=== PATIENT | male | born 1970 | race Caucasian/White ===

== ENCOUNTER → 2021-08-29 | Outpatient (CLI) | payer OTHER, SELFPAY ==
[2021-08-29 12:32] LABS: Absolute Lymphocyte Count 1.43 X10^3/uL (0.83-4.51); Absolute Neutrophil Count 3.6 X10^3/uL (2.0-7.7); Basophil# 0.04 X10^3/uL; Basophil% 0.7 % (0-1); Eosinophil# 0.28 X10^3/uL; Eosinophils% 4.7 % (0-5); Hematocrit 47.9 % (40-54); Lymphocyte # 1.43 X10^3/ul (0.83-4.51); Lymphocyte % 24.1 % (19-41); Mean Corp Hgb Conc 33.4 g/dL (32-36); Mean Corpuscular Hgb 29.9 pg (27.0-32.0); Mean Corpuscular Volume 89.4 fL (80-94); Mean Platelet Vol. 11.2 fl (6.2-12.0); Monocyte# 0.55 X10^3/uL; Monocyte% 9.3 % (0-10); NRBC Flagged by Analyzer 0 % (0-5); Neutrophil # 3.62 X10^3/uL (2.7-7.7); Neutrophil % 60.9 % (47-70); Platelet Count 206 K/mm3 (150-450); RBC Distribution Width CV 12.4 % (11.6-14.6); RBC Distribution Width SD 40.2 fl (35.1-43.9); Red Blood Count 5.36 M/mm3 (4.6-6.2); White Blood Count 5.9 K/mm3 (4.4-11.0)
[2021-08-29 12:40] LABS: Vitamin D,25 Hydroxy 25.1 ng/mL
[2021-08-29 12:43] LABS: Hemoglobin A1c 5.3 % (3.8-5.6)
[2021-08-29 12:53] LABS: ALB/GLOB Ratio 1.2 RATIO (0.9-2.4); AST(SGOT) 18 U/L (15-37); Alanine Aminotransfer ALT/SGPT 37 U/L (16-61); Alkaline Phosphatase 76 U/L (45-117); Anion Gap 5 (5-15); BUN 18 mg/dL (7-18); BUN/Creat Ratio 17.1 RATIO (10-20); Chloride 108 mmol/L (98-107); Cholesterol 132 mg/dL (200); Creatinine, Serum 1.05 mg/dL (0.70-1.30); EST Glomerular Filtration Rate 79 mL/min (>60); Est Glom Filt Rate - Afr Amer 96 mL/min (>60); Free T3 3.3 pg/mL (2.18-3.98); Globulin 3.2 g/dL (2.2-4.2); Glucose 100 mg/dL (74-106); High Density Lipoprotein 44 mg/dL; PSA,Total - Annual Screen 0.49 ng/mL (0.00-4.00); Potassium 4.6 mmol/L (3.5-5.1); Protein, Total 7.2 g/dL (6.4-8.2); Sodium Level 141 mmol/L (136-145); T4 Free Direct 0.98 ng/dL (0.76-1.46); Thyroid Stim Hormone (TSH) 0.51 uIU/mL (0.358-3.74); Triglycerides 64 mg/dL; Very Low Density Lipoprotein 13 mg/dL (5-40)
== END | disposition home or self-care (01) ==
LOC: BIMLAB 08:53
PROVIDERS: PCP Internal Medicine; Referring Provider Internal Medicine; Visit Provider Internal Medicine
DX: N50.3 Cyst of epididymis (principal); E55.9 Vitamin D deficiency, unspecified; Z13.1 Encounter for screening for diabetes mellitus; Z12.5 Encounter for screening for malignant neoplasm of prostate
CPT/HCPCS: 36415; 80053; 80061; 82306; 83036; 84153; 84439; 84443; 84481; 85025; G0103

== ENCOUNTER → 2021-09-01 | Outpatient (CLI) | payer OTHER, SELFPAY ==
--- NOTE | 2021-09-01 15:21 | US_ITS ---
STUDY: SCROTUM ULTRASOUND REASON FOR EXAM: Male, 50 years old. scrotal mass TECHNIQUE: Ultrasound evaluation of the scrotum was performed with color Doppler and static jasso-scale imaging. COMPARISON: None. FINDINGS: RIGHT TESTICLE INTRATESTICULAR: There is a normal size of the right testicle. The right testicle measures 5 x 2.8 x 3.0 cm. There is a homogenous echotexture. There is normal arterial and normal venous vascularity. There is no demonstrated right testicular mass or cyst. EXTRATESTICULAR: The epididymis is normal in size. The epididymis head measures 0.8 cm. There is normal vascularity of the epididymis. There is no demonstrated epididymal cystic structure. There is a moderate size hydrocele. There is no demonstrated varicocele. There is no demonstrated extratesticular mass or cyst. LEFT TESTICLE INTRATESTICULAR: There is a normal size of the left testicle. The left testicle measures 4.6 x 3.2 x 2.9 cm. There is a homogenous echotexture. There is normal arterial and normal venous vascularity. There is no demonstrated left testicular mass or cyst. EXTRATESTICULAR: The epididymis is enlarged. The epididymis head measures 2.4 cm. There is normal vascularity of the epididymis. Multiple simple appearing cysts. Largest of which measures 2.2 x 2.9 x 2.4 cm. There is a small hydrocele. There are prominent extratesticular veins consistent with a varicocele. There is no demonstrated extratesticular mass or cyst. US/Testicular with Arterial Flow IMPRESSION: No evidence of torsion bilaterally. Multiple large simple appearing left epididymal head cysts. Bilateral hydrocele; right greater than left. Left varicocele Electronically Signed: Elias Jiménez DO at 4:49 EDT ,
== END | disposition home or self-care (01) ==
LOC: US 15:19
PROVIDERS: PCP Internal Medicine; Visit Provider Internal Medicine
DX: N50.3 Cyst of epididymis (principal)
CPT/HCPCS: 76870; 93976

== ENCOUNTER → 2022-05-25 | Outpatient (CLI) | payer OTHER, SELFPAY ==
[2022-05-25 15:34] LABS: Absolute Lymphocyte Count 1.79 X10^3/uL (0.83-4.51); Absolute Neutrophil Count 4.2 X10^3/uL (2.0-7.7); Basophil# 0.07 X10^3/uL; Eosinophil# 0.33 X10^3/uL; Eosinophils% 4.7 % (0-5); Hematocrit 45.4 % (40-54); Hemoglobin 15.8 g/dL (13.0-16.5); Lymphocyte # 1.79 X10^3/ul (0.83-4.51); Lymphocyte % 25.7 % (19-41); Mean Corp Hgb Conc 34.8 g/dL (32-36); Mean Corpuscular Hgb 30.3 pg (27.0-32.0); Mean Corpuscular Volume 87.1 fL (80-94); Monocyte% 8.6 % (0-10); NRBC Flagged by Analyzer 0 % (0-5); Neutrophil # 4.16 X10^3/uL (2.7-7.7); Neutrophil % 59.7 % (47-70); Platelet Count 207 K/mm3 (150-450); RBC Distribution Width SD 38.5 fl (35.1-43.9); Red Blood Count 5.21 M/mm3 (4.6-6.2)
[2022-05-25 15:57] LABS: Anion Gap 9 (5-15); BUN 14 mg/dL (7-18); BUN/Creat Ratio 14.1 RATIO (10-20); Calcium,Total 9.1 mg/dL (8.5-10.1); Chloride 106 mmol/L (98-107); EST Glomerular Filtration Rate 84 mL/min (>60); Est Glom Filt Rate - Afr Amer 102 mL/min (>60); Glucose 83 mg/dL (74-106); Sodium Level 142 mmol/L (136-145); Uric Acid 5.5 mg/dL (3.5-7.2)
[2022-05-25 16:03] LABS: Erythrocyte Sedimentation Rate 3 mm/hr (0-20)
== END | disposition home or self-care (01) ==
LOC: LAB 14:14
PROVIDERS: PCP Internal Medicine; Referring Provider Internal Medicine; Visit Provider Internal Medicine
DX: M25.532 Pain in left wrist (principal); M25.442 Effusion, left hand
CPT/HCPCS: 36415; 80048; 84550; 85025; 85652; 86140

== ENCOUNTER → 2022-06-02 | Outpatient (CLI) | payer OTHER, SELFPAY ==
[2022-06-04 17:48] LABS: Lyme Scn Total Ab w/Rflx Negative (Negative)
== END | disposition home or self-care (01) ==
LOC: MTLAB 15:10
PROVIDERS: PCP Internal Medicine; Referring Provider Orthopaedic Surgery Sports Medicine; Visit Provider Orthopaedic Surgery Sports Medicine
DX: M25.442 Effusion, left hand (principal)
CPT/HCPCS: 36415; 86618

== ENCOUNTER 2022-06-14 19:55 | Emergency (ER) | payer OTHER, SELFPAY ==
[2022-06-14 19:57] VITALS: BP 147/97; PULSE 104; RESP 18; TEMP 37.2; O2SAT 98; BMI 33.2
--- NOTE | 2022-06-14 20:18 | EDS_ITS ---
HPI <AMADOU Sepulveda - Last Filed: 06/14/22 20:36> History of Present Illness Chief Complaint: Upper Extremity Injury Narrative Narrative: 51-year-old male presents with 4 to 5 weeks of left wrist pain. He states it started with discomfort along the anterior radial side of the wrist near the base of his thumb. About 2 weeks into it he developed swelling of the hand and wrist. He was seen by his primary care on 05/25 who checked blood work and uric acid which were negative. He was started on a Medrol Dosepak and the swelling went down while taking this but returned again. He saw Dr. Dilan Weber about a week later and had an x-ray showing osteoarthritis. He was placed on indomethacin in case it was gout but he said that this did not help. A week later he was prescribed a second Medrol Dosepak and states the swelling and pain again went down while taking it but after he stopped 4 days ago it returned. There is no fever or redness. No trauma. He has no other joint involvement. PFSH <AMADOU Sepulveda - Last Filed: 06/14/22 20:36> [facility] Medical History Arthritis Left wrist pain Migraines Seasonal allergies Home Medications methylprednisolone 4 mg tablets in a dose pack (Medrol (Chuck)) 4 mg PO DAILY #21 tabs 06/14/22 [Rx Last Taken Unknown] Allergy/AdvReac Type Severity Reaction Status Date / Time No Known Allergies Allergy Verified 06/14/22 19:56 Surgical History H/O removal of cyst H/O sinus surgery Social History Smoking Status: Never smoker alcohol intake: never substance use type: does not use ROS <AMADOU Sepulveda - Last Filed: 06/14/22 20:36> ROS ED ROS Narrative Constitutional: Negative for fever, chills, malaise. CVS: Negative for palpitations, chest pain. Respiratory: Negative for shortness of breath, cough. Neuro: Negative for motor/sensory dysfunction. Skin: Negative for rash, abscess, or wound. Musc: Positive for left wrist pain, swelling, trauma Heme: Negative for easy bruising, bleeding, lymphadenopathy. EXAM <AMADOU Sepulveda - Last Filed: 06/14/22 20:36> Physical Exam Narrative Exam Narrative: CONST: Patient sitting in no acute distress. NECK: Normal inspection. RESP: No respiratory distress, CTAB. CVS: Regular rate and rhythm, no murmur, no gallop. SKIN: Color normal, no rash, warm, dry, intact. EXTREMITIES: Soft tissue swelling over the left dorsal wrist and hand, slight warmth of the wrist, no erythema. Full ROM, normal motor and sensory function in median ulnar and radial distributions, 2+ radial pulse and brisk cap refill in all digits. He is tender over the base of the thumb extending towards the wrist and has pain with movement of the thumb and positive Tracey's test. NEURO: Oriented x4. PSYCH: Normal affect. Const Vital Signs: 06/14/22 19:57 Temperature 99.0 F Temperature Source Temporal Pulse Rate 104 H Respiratory Rate 18 Blood Pressure 147/97 H Blood Pressure Mean 113 Pulse Ox 98 Oxygen Delivery Method Room Air MDM <AMADOU Sepulveda - Last Filed: 06/14/22 20:36> MDM MDM Narrative Medical decision making narrative: Patient has about 5 to 6 weeks of atraumatic left wrist pain and swelling. He has been seen by his PCP and orthopedics. He was treated with NSAIDs which did not help and Medrol Dosepak x2. He states the pain and swelling go down was on steroids and then return once he finishes them. The left dorsal wrist and hand are swollen and slightly warm but there is no erythema or signs of infection. He has full range of motion with no significant pain so I do not think this is septic joint. He indicates most of his pain is along the anterior radial aspect of the wrist which is reproducible with movement of the thumb. He has a positive Tracey's test so he may have deQuervain's tenosynovitis. He has had a full work-up and I do not think further blood work or imaging is indicated as there is been no trauma and there are no signs of infection on exam. I suspect he has decor veins with the swelling of his hand as well may have an underlying inflammatory process as well. I prescribed another Medrol Dosepak. He is not diabetic and says this is the only thing that has helped his symptoms. I also gave him a thumb spica splint. He declined pain medication. He will follow-up with orthopedics and is scheduled to see rheumatology at the end of this month for evaluation. He was discharged in stable condition External records reviewed: Wrist x-ray from 05/29/2022 showed a questionable avulsion fracture of the triquetrum. Patient had no recent trauma so orthopedics thought this was remote. <Dr. Adria Muñoz, DO - Last Filed: 06/14/22 21:17> MDM Treatment and Re-Evaluation Narrative: I have personally performed a face to face assessment of the patient and have reviewed the BELEM Note. I performed a substantive portion of the visit including all aspects of the following. My richard findings include: History: Patient presents with left hand pain and swelling that became worse again today. Patient states he saw his primary care physician for this and he was started on a Medrol Dosepak. Patient states he completed this. Patient states his primary care physician also check for gout and infection. Patient states his blood work was normal. Patient states he followed up with Dr. Weber from orthopedics. Patient states that Dr. Weber checked a Lyme titer which came back negative. Patient states he was put on a second Medrol Dosepak. Patient states that while he has been on the steroids, his pain and swelling has improved. Patient states that when he is done taking the steroids his pain and swelling comes back. Patient took a dose of Aleve prior to coming to the emergency department tonight. Patient denies any fevers or chills. Patient denies any trauma or injury. Exam: Vital signs are stable. Patient is afebrile. Patient is in no acute distress. There is tenderness and edema over the dorsum of the left hand and along the left wrist. There is no pain with short arc range of motion. There is no erythema. There is some mild warmth. Radial pulses are equal bilaterally. Sensation was intact to light touch in the radial, median, and ulnar areas. Strength is 5/5 in the radial, median, and ulnar areas. There is a positive Tracey's test. Medical Decision Making: I believe this is an inflammatory arthritis. We will place the patient on another Medrol Dosepak. Patient states he has an appointment with a bushwalking guide at the end of this month. Patient was given a thumb spica splint. Patient was instructed to ice and elevate the left wrist and hand. Patient was instructed to return if worse in any way. Patient understood and was agreeable with the plan. All questions were answered. Discharge Plan Triage Chief Complaint: Upper Extremity Injury ED Midlevel Provider: Grazyna Crum ED Provider: Adria Muñoz Dx/Rx/DC Orders Clinical Impression: Pain and swelling of left wrist Instructions: ED Pain, Acute, Uncertain Cause Prescriptions: New methylprednisolone [Medrol (Chuck)] 4 mg tablets,dose pack 4 mg PO DAILY Qty: 21 0RF Primary Care Provider: Brianna Alvarado Referrals: Brianna Alvarado MD [Primary Care Provider] - Activity Restrictions/Additional Instructions: Wear the splint, take Aleve every 6 hours as needed, you can also take Tylenol with this. I prescribed a new Medrol Dosepak and recommend you follow-up with orthopedics and rheumatology. Disposition Disposition: Home, Self Care
--- NOTE | 2022-06-14 20:57 | NURSING ---
this RN entered room with spica splint, pt stated he wasnt going to put it on here. attempted to educate on application at home in which patient stated that he wasn't going to wear it and asked if he even needed to take it. stated he didn't want it or charged for it.
== END 2022-06-14 21:10 | disposition home or self-care (01) ==
LOC: ED 20:38
PROVIDERS: Emergency Provider Emergency Medicine; PCP Internal Medicine; Visit Provider Emergency Medicine
DX: M25.532 Pain in left wrist (principal); M79.89 Other specified soft tissue disorders
CPT/HCPCS: 99282

== ENCOUNTER → 2022-06-23 | Outpatient (CLI) | payer OTHER, SELFPAY ==
[2022-06-23 12:15] LABS: Color, Urine Yellow (Yellow); Glucose, Dipstick Normal (Normal); Ketone-Dipstick Negative (Negative); Leukocyte Esterase-Dipstick Negative /ul (Negative); Nitrite-Dipstick Negative (Negative); Occult Blood-Urine Negative /ul (Negative); Protein-Dipstick Negative (Negative); Urine Bilirubin Dipstick Negative (Negative); Urine Clarity Clear (Clear); Urine Urobilinogen Normal (Normal)
[2022-06-23 12:22] LABS: Erythrocyte Sedimentation Rate 9 mm/hr (0-20)
[2022-06-23 12:28] LABS: Absolute Lymphocyte Count 1.05 X10^3/uL (0.83-4.51); Absolute Neutrophil Count 6.5 X10^3/uL (2.0-7.7); Basophil# 0.04 X10^3/uL; Basophil% 0.5 % (0-1); Eosinophil# 0.15 X10^3/uL; Eosinophils% 1.8 % (0-5); Hematocrit 46.3 % (40-54); Hemoglobin 15.5 g/dL (13.0-16.5); Lymphocyte # 1.05 X10^3/ul (0.83-4.51); Lymphocyte % 12.6 % (19-41); Mean Corp Hgb Conc 33.5 g/dL (32-36); Mean Corpuscular Volume 89.6 fL (80-94); Mean Platelet Vol. 10.5 fl (6.2-12.0); Monocyte# 0.57 X10^3/uL; Monocyte% 6.9 % (0-10); NRBC Flagged by Analyzer 0 % (0-5); Neutrophil # 6.45 X10^3/uL (2.7-7.7); Neutrophil % 77.5 % (47-70); Platelet Count 222 K/mm3 (150-450); RBC Distribution Width CV 12.1 % (11.6-14.6); RBC Distribution Width SD 39.8 fl (35.1-43.9); Red Blood Count 5.17 M/mm3 (4.6-6.2); White Blood Count 8.3 K/mm3 (4.4-11.0)
[2022-06-23 13:00] LABS: Hepatitis B Surface Antibody Non-Reactive; Hepatitis B Surface Antigen Non-Reactive (Nonreactive)
[2022-06-23 13:39] LABS: ALB/GLOB Ratio 1.2 RATIO (0.9-2.4); AST(SGOT) 15 U/L (15-37); Alanine Aminotransfer ALT/SGPT 29 U/L (16-61); Albumin, Serum 3.7 g/dL (3.2-5.0); Alkaline Phosphatase 82 U/L (45-117); Anion Gap 6 (5-15); BUN 14 mg/dL (7-18); BUN/Creat Ratio 14.9 RATIO (10-20); CRP 8.31 mg/L (0.0-3.0); Calcium,Total 9.2 mg/dL (8.5-10.1); Chloride 107 mmol/L (98-107); Creatinine, Serum 0.94 mg/dL (0.70-1.30); EST Glomerular Filtration Rate 90 mL/min (>60); Est Glom Filt Rate - Afr Amer 109 mL/min (>60); Globulin 3.1 g/dL (2.2-4.2); Glucose 101 mg/dL (74-106); Potassium 4.1 mmol/L (3.5-5.1); Protein, Total 6.8 g/dL (6.4-8.2); Rheumatoid Factor < 10.0 IU/mL (<15); Sodium Level 142 mmol/L (136-145)
[2022-06-23 14:37] LABS: Hepatitis C Antibody Non-Reactive (Nonreactive)
[2022-06-24 18:50] LABS: ANTINUCLEAR ANTIBODIES DIRECT Positive (Negative)
[2022-07-06 18:07] LABS: PROELU- Albumin, Urine 33.1 % (.); PROELU- Alpha-1-Globulin,Ur 11.6 % (.); PROELU- Alpha-2-Globulin,Ur 26.6 % (.); PROELU- Beta Globulin, Ur 18.2 % (.); PROELU- Gamma Globulin, Ur 10.5 % (.); QNTFERON TB Mitogen Value > 10.00 IU/mL (.); QNTFERON TB Nil Value 0.02 IU/mL (.); QNTFERON TB1+ Ag Value 0.03 IU/mL (.); QNTFERON TB2+ Ag Value 0.02 IU/mL (.); Total Protein, Ur 6.6 mg/dL (Not Estab.)
[2022-07-06 20:10] LABS: CCP IgG Antibodies 3 units (0-19); HLA B27 Positive (.); QNTIFERON TB Positive Criteria Negative (Negative)
== END | disposition home or self-care (01) ==
LOC: MTLAB 10:05
PROVIDERS: PCP Internal Medicine; Referring Provider Internal Medicine Rheumatology; Visit Provider Internal Medicine Rheumatology
DX: M06.4 Inflammatory polyarthropathy (principal); N50.3 Cyst of epididymis; N43.3 Hydrocele, unspecified
CPT/HCPCS: 36415; 80053; 81002; 81374; 84166; 85025; 85652; 86038; 86140; 86200; 86335; 86431; 86480; 86706; 86803; 87340

== ENCOUNTER → 2022-07-07 | Outpatient (CLI) | payer OTHER, SELFPAY ==
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
--- NOTE | 2022-07-07 16:59 | MRI_ITS ---
EXAM: MR LEFT UPPER EXTREMITY WITHOUT AND WITH INTRAVENOUS CONTRAST, WRIST CLINICAL INDICATION: LEFT WRIST PAIN/SWELLING, INFLAMMATORY POLYARTHROPATHY TECHNIQUE: Multiplanar and multisequence MR images of the left wrist without and with intravenous contrast. This report was created using [employer] report generation technology. CONTRAST: IV 20ml clariscan COMPARISON: 05/29/2022 wrist radiography. FINDINGS: ARTIFACTS: Motion artifact limits assessment. LIGAMENTS: SCAPHOLUNATE: Unremarkable. Intact. LUNOTRIQUETRAL: Unremarkable. Intact. TENDONS: FLEXOR COMPARTMENTS: Flexor and extensor tendons are intact. No tenosynovitis. EXTENSOR COMPARTMENTS: See above. NERVES: MEDIAN: Unremarkable. Median nerve is normal in size and signal intensity. ULNAR: Unremarkable. Ulnar nerve is normal in size and signal intensity. MUSCLES: Unremarkable. FLUID: Multicompartmental wrist joint effusion with synovitis; this can be seen with inflammatory arthropathy. Fluid about the flexor tendons of the carpal tunnel can be seen with tenosynovitis or bursitis. CARTILAGE: Unremarkable. The articular cartilage is preserved. TRIANGULAR FIBROCARTILAGE COMPLEX: Unremarkable. Intact without communicating defect. BONES/JOINTS: Moderate osteoarthrosis of the first carpometacarpal joint. Moderate osteoarthrosis at the triscaphe joint. Small cystic or erosive changes at the distal ulna. No bone marrow signal alterations. OTHER SOFT TISSUES: Unremarkable. No ganglion. MRI/Upper Ext Joint Only W/WO Cont IMPRESSION: Findings of inflammatory arthropathy including joint effusion with synovitis and possible small erosions of the distal ulna. Electronically Signed: Blas Jay MD at 3:07 EDT ,
== END | disposition home or self-care (01) ==
PROVIDERS: PCP Internal Medicine; Referring Provider Internal Medicine Rheumatology; Visit Provider Internal Medicine Rheumatology
DX: N50.3 Cyst of epididymis (principal); N43.3 Hydrocele, unspecified
CPT/HCPCS: 70030; 73223; A9575

== ENCOUNTER → 2022-10-16 | Outpatient (CLI) | payer OTHER, SELFPAY ==
[2022-10-16 10:24] LABS: Erythrocyte Sedimentation Rate 6 mm/hr (0-20)
[2022-10-16 10:26] LABS: Absolute Lymphocyte Count 1.37 X10^3/uL (0.83-4.51); Absolute Neutrophil Count 3.1 X10^3/uL (2.0-7.7); Basophil# 0.05 X10^3/uL; Basophil% 0.9 % (0-1); Eosinophil# 0.32 X10^3/uL; Eosinophils% 6.1 % (0-5); Hematocrit 46.4 % (40-54); Hemoglobin 15.9 g/dL (13.0-16.5); Lymphocyte # 1.37 X10^3/ul (0.83-4.51); Mean Corp Hgb Conc 34.3 g/dL (32-36); Mean Corpuscular Hgb 30.8 pg (27.0-32.0); Mean Corpuscular Volume 89.7 fL (80-94); Mean Platelet Vol. 10.8 fl (6.2-12.0); Monocyte% 7.6 % (0-10); NRBC Flagged by Analyzer 0 % (0-5); Neutrophil % 58.8 % (47-70); Platelet Count 208 K/mm3 (150-450); RBC Distribution Width CV 12.9 % (11.6-14.6); RBC Distribution Width SD 41.9 fl (35.1-43.9); Red Blood Count 5.17 M/mm3 (4.6-6.2); White Blood Count 5.3 K/mm3 (4.4-11.0)
[2022-10-16 10:39] LABS: ALB/GLOB Ratio 1.1 RATIO (0.9-2.4); AST(SGOT) 20 U/L (15-37); Alanine Aminotransfer ALT/SGPT 32 U/L (16-61); Albumin, Serum 3.6 g/dL (3.2-5.0); Alkaline Phosphatase 81 U/L (45-117); Anion Gap 4 (5-15); BUN 16 mg/dL (7-18); BUN/Creat Ratio 16.4 RATIO (10-20); CRP < 2.90 mg/L (0.0-3.0); Calcium,Total 8.8 mg/dL (8.5-10.1); Chloride 111 mmol/L (98-107); Creatinine, Serum 0.97 mg/dL (0.70-1.30); EST Glomerular Filtration Rate 86 mL/min (>60); Est Glom Filt Rate - Afr Amer 104 mL/min (>60); Globulin 3.2 g/dL (2.2-4.2); Glucose 119 mg/dL (74-106); Protein, Total 6.8 g/dL (6.4-8.2); Sodium Level 140 mmol/L (136-145)
== END | disposition home or self-care (01) ==
LOC: MTLAB 09:12
PROVIDERS: PCP Internal Medicine
DX: M45.0 Ankylosing spondylitis of multiple sites in spine (principal)
CPT/HCPCS: 36415; 80053; 85025; 85652; 86140

== ENCOUNTER 2023-09-22 12:29 | Day surgery (SDC) | payer OTHER, SELFPAY ==
[2023-09-22 12:54] VITALS: BP 128/88; PULSE 80; RESP 16; TEMP 36.2; O2SAT 100; BMI 31.8
[2023-09-22] MEDS: Lactated Ringers 1,000 ML 15 ML IV (13:10)
--- NOTE | 2023-09-22 13:27 | HP.PCM_ITS ---
HPI - General HPI Narrative CASPER GONZALEZ, is a 52 M who presents for screening colonoscopy. The patient has never had a colonoscopy in the past. He denies any abdominal pain or blood in the stool. Denies family history of colon cancer or being on blood thinners. [facility] Medical History (Updated 09/15/23 @ 13:06 by Saige Shane) Wears glasses History of steroid therapy Non-smoker Left wrist pain Migraines Arthritis Seasonal allergies Home Medications ?Medication ?Instructions ?Recorded ?Last Taken ?Type cyanocobalamin (vitamin B-12) 100 100 mcg PO DAILY 09/15/23 Unknown History mcg tablet multivitamin (Daily Multi-Vitamin 1 tab PO DAILY 09/15/23 Unknown History tablet) Allergy/AdvReac Type Severity Reaction Status Date / Time No Known Allergies Allergy Verified 09/22/23 12:52 Family History (Updated 09/07/23 @ 13:20 by Caroline Palacios) Father Heart disease Hypertension Diabetes Mother Heart disease Surgical History H/O removal of cyst H/O sinus surgery Social History (Updated 09/07/23 @ 13:21 by Caroline Palacios) household members: spouse current occupational status: employed Smoking Status: Never smoker alcohol intake: never substance use type: does not use Past Medical/Surgical History Planned Operation Planned Operative Procedure(s): CSCOPE Previous Hospitalizations/Surgeries HX Hospitalizations: No Any Problems With Anesthesia: No You/Your Family Experience Fever (Hyperthermia) With Anes: No Cholinesterase deficiency: No Cardiovascular Hx of Irregular Heartbeat and/or Afib: No Hx Heart Attack: No Hx Congestive Heart Failure: No Hx Hypertension: No Hx Pacemaker: No Respiratory Hx Chronic Obstructive Pulmonary Disease (COPD): No Hx Asthma: No Hx Emphysema: No Hx Sleep Apnea: No Hx Respiratory Tract Infection/Cold (presently): No Do You Snore Loudly (louder than talking or can be heard): No Do You Often Feel Tired/ Fatigued/ Sleepy Dring Daytime?: No Has Anyone Observed You Stop Breathing During Sleep?: No Result (for STOP score): Negative Smoking Status: Never smoker Gastrointestinal Hx Ulcer: No Neurological Hx Seizures: No Hx Head/Neck Injury: No Hx Headaches: No Hx Back Injury/Pain: No Does patient have nerve stimulator: No Reproduction : No Miscellaneous Recent Exposure to Contagious Disease: No Allergies No Known Allergies Allergy (Verified 09/22/23 12:52) Discharge Is Pt Admitted From a Assisted, or a Retirement: No After D/C, Where Do you Plan to Go: Return Home Vital Signs Vital Signs Vital Signs: 09/22/23 12:54 09/22/23 12:54 Temperature 97.1 F L Temperature Source Temporal Pulse Rate 80 Respiratory Rate 16 Respiratory Pattern Normal Blood Pressure 128/88 H Blood Pressure Mean 101 Blood Pressure Source Monitor Blood Pressure Position Sitting Blood Pressure Location Left Arm Pulse Ox 100 Oxygen Delivery Method Room Air Weight Weight: 216 lb 0.848 oz Body Mass Index (BMI) 31.8 Physical Exam Const alert and oriented x3 HEENT normocephalic Eyes PERRL Resp normal respiratory effort and normal air movement Cardio regular rate and regular rhythm GI soft to palpation, non-tender and non-distended Extremity normal to inspection Assessment & Plan Assessment/Plan (1) Colon cancer screening: PLAN: I explained endoscopy in detail to the patient. I explained the risks including but not limited to stroke or heart attack with anesthesia, perforation of the GI tract, bleeding, infection. I explained that any of these could necessitate further emergency surgery. The patient understands and all questions were answered sufficiently. The patient wishes to proceed with procedure. Dorian Cha MD Pager: [facility] [address] [place] [address], [address] [place] [address] Office: Surgery Risks - Colonoscopy Risks Include but are not Limited To: Risks include but are not limited to: Bleeding, perforation requiring further surgery, inability to complete colonoscopy requiring barium enema.
[2023-09-22 13:54] VITALS: BP 111/71; BP 128/88; PULSE 75; RESP 16; TEMP 37.1; O2SAT 96
[2023-09-22 13:55] VITALS: BP 108/49; BP 128/88; PULSE 70; RESP 16; O2SAT 96
--- NOTE | 2023-09-22 13:58 | OP.CCLET_ITS ---
09/22/2023 Abhijeet Martinez Md Re : Colonoscopy procedure for Rodrigo Stewart Dear Michelle This procedure was performed on Friday, September 22, 2023. My impressions and recommendations are as follows: Impressions : - The entire examined colon is normal on direct and retroflexion views. - No specimens collected. Recommendations : - Discharge patient to home. - Resume previous diet. - Continue present medications. - Repeat colonoscopy in 10 years for screening purposes. My findings are described in the full procedure note, which is enclosed. If I can be of further assistance, please feel free to contact me at Doctor phone number(s): , Work: . Sincerely, Dorian Cha MD 09/22/2023 1:57:16 PM This report has been signed electronically.
--- NOTE | 2023-09-22 13:58 | OP.COLON_ITS ---
Patient Name: Rodrigo Stewart Procedure Date: 09/22/2023 1:29 PM Date of : 1970 Age: 52 Procedure: Colonoscopy Indications: Screening for colorectal malignant neoplasm Providers: Dorian Cha MD Referring MD: Abhijeet Martinez Md Medicines: Propofol per Anesthesia Patient Profile: Last Colonoscopy: none. The patient's first colonoscopy is today. Complications: No immediate complications. Estimated blood loss: Minimal. Procedure: Pre-Anesthesia Assessment: - Prior to the procedure, a History and Physical was performed, and patient medications and allergies were reviewed. The patient's tolerance of previous anesthesia was also reviewed. The risks and benefits of the procedure and the sedation options and risks were discussed with the patient. All questions were answered, and informed consent was obtained. Prior Anticoagulants: The patient has taken no anticoagulant or antiplatelet agents. After reviewing the risks and benefits, the patient was deemed in satisfactory condition to undergo the procedure. After I obtained informed consent, the scope was passed under direct vision. Throughout the procedure, the patient's blood pressure, pulse, and oxygen saturations were monitored continuously. The colonoscope was introduced through the anus and advanced to the cecum, identified by appendiceal orifice and ileocecal valve. The colonoscopy was performed without difficulty. The patient tolerated the procedure well. The quality of the bowel preparation was good. The ileocecal valve, appendiceal orifice, and rectum were photographed. Scope In: 1:39:32 PM Scope Withdrawal Time 0 hours 5 minutes 27 seconds Scope Out: 1:49:10 PM Total Procedure Duration Time 0 hours 9 minutes 38 seconds Findings: The entire examined colon appeared normal on direct and retroflexion views. Impression: - The entire examined colon is normal on direct and retroflexion views. - No specimens collected. Recommendation: - Discharge patient to home. - Resume previous diet. - Continue present medications. - Repeat colonoscopy in 10 years for screening purposes. Procedure Code(s): --- Professional --- 70680, Colonoscopy, flexible; diagnostic, including collection of specimen(s) by brushing or washing, when performed (separate procedure) Diagnosis Code(s): --- Professional --- Z12.11, Encounter for screening for malignant neoplasm of colon CPT copyright 2021 [employer]. All rights reserved. The codes documented in this report are preliminary and upon auditing clerk review may be revised to meet current compliance requirements. Dorian Cha MD 09/22/2023 1:57:16 PM This report has been signed electronically. Number of Addenda: 0 Note Initiated On: 09/22/2023 1:29 PM
[2023-09-22 13:59] VITALS: BP 114/80; BP 128/88; PULSE 62; RESP 16; O2SAT 97
[2023-09-22 14:04] VITALS: BP 114/82; BP 128/88; PULSE 60; RESP 16; TEMP 36.1; O2SAT 97
[2023-09-22 14:15] VITALS: BP 128/88
== END 2023-09-22 14:31 | disposition home or self-care (01) ==
LOC: EN 12:29 → AC 12:31
PROVIDERS: PCP Family Medicine; Referring Provider Family Medicine; Visit Provider Surgery
PROC: 0DJD8ZZ Inspection of Lower Intestinal Tract, Via Natural or Artificial Opening Endoscopic (ICD-10-PCS; CPT 45378; principal; 2023-09-22 14:25)
DX: Z12.11 Encounter for screening for malignant neoplasm of colon (principal)
CPT/HCPCS: 45378; J7120

== ENCOUNTER 2023-12-10 07:48 | Inpatient (IN) | payer OTHER, SELFPAY ==
[2023-12-10] VITALS (18 sets, daily range): BP systolic 111–140; BP diastolic 56–95; PULSE 62–108; RESP 14–20; TEMP 36.4–37.1; O2SAT 95–100; BMI 32.8; BMI 34.0
--- NOTE | 2023-12-10 07:53 | RAD_ITS ---
STUDY: X-RAY - RIGHT FOOT CLINICAL: Male, 52 years old. Injury / Pain. TECHNIQUE: 3 views of the right foot. COMPARISON: None. FINDINGS: Normal talus, calcaneus, and tarsal bones. Normal visualized subtalar, talonavicular, calcaneocuboid, tarsal and tarsometatarsal articulations. Normal metatarsi. Normal metatarsophalangeal joint of the great toe. Normal tibial and fibular sesamoid bones. Normal interphalangeal joint of the great toe. There is a transverse fracture through the distal aspect of the distal phalanx of the great toe, age indeterminate. There are also old ununited fractures of the distal aspect of the second proximal phalanx as well as the fifth middle phalanx. Normal second through fifth metatarsophalangeal joints. Normal interphalangeal joints and phalanges of the lesser toes. There is mild soft tissue swelling of the dorsum of the forefoot. RAD/Foot min 3 Views IMPRESSION: Transverse fracture through the distal aspect of the distal phalanx of the great toe, age indeterminate. Old ununited fractures of the distal aspect of the second proximal phalanx as well as the fifth middle phalanx. Mild soft tissue swelling of the dorsum of the forefoot. Electronically Signed: Dony Adam MD at 8:20 EDT ,
[2023-12-10] MEDS: HYDROmorphone 1 MG/ML Syringe 0.5 MG IV (08:00)
[2023-12-10] MEDS: 0.9% Normal Saline (1000mL) 1,000 ML 250 ML IV (08:00)
--- NOTE | 2023-12-10 08:00 | EX.ED.GENINJ ---
HPI History of Present Illness Chief Complaint: Trauma Detail of Chief Complaint: Crush injury right foot Informant: patient Onset/Context/Timing Onset: Hours Mechanism/Context: Blunt Injury and Work Related Location of pain/injuries: Right foot (Cut through work boot) Location: Great toe, midfoot (metatarsals and proximal phalanx of toes) Current Severity: Moderate Maximum Severity: Severe Worsened by: Movement, pressure Relieved by: Nothing Associated Symptoms Associated Symptoms: Positive for Parasthesias, Loss of function and Inability to ambulate; Negative for Weakness, Loss of consciousness or Amnesia Narrative Narrative: Patient is a 52-year-old male with no significant past medical history who is presently on antibiotic for upper respiratory infection. Patient has not had anything to eat or drink since approximately 0 500. He has no allergies to pain medicine or antibiotics. He states he pulled the pin gate came down and crushed his right foot. The gate cut through his shoe proximal to the toe guard. Patient complains of tingling. He is unable to bear weight. When he arrived his foot was wrapped. Tetanus Immunization: Unknown Prior similar symptoms: No Recent Illness/Hospitalization: No PFSH PFSH Medical History Wears glasses History of steroid therapy Non-smoker Left wrist pain Migraines Arthritis Seasonal allergies Home Medications ?Medication ?Instructions ?Recorded ?Last Taken ?Type multivitamin (Daily Multi-Vitamin 1 tab PO DAILY 09/15/23 Unknown History tablet) amoxicillin 875 mg-potassium 1 tab PO Q12.TCU 12/10/23 Unknown History clavulanate 125 mg tablet Allergy/AdvReac Type Severity Reaction Status Date / Time No Known Allergies Allergy Verified 09/22/23 12:52 Family History Father Heart disease Hypertension Diabetes Mother Heart disease Surgical History H/O removal of cyst H/O sinus surgery Social History household members: spouse current occupational status: employed Smoking Status: Never smoker alcohol intake: never substance use type: does not use ROS ROS ED Constitutional Constitutional ED: Denies chills, fever(s) or subjective Cardiovascular Cardiovascular: Denies chest pain Respiratory/Chest Respiratory/Chest: Denies dyspnea or dyspnea on exertion Gastrointestinal Gastrointestinal: Denies nausea or vomiting Musculoskeletal Musculoskeletal: Reports other Details: Right foot pain ; Denies arthralgias, back pain or myalgias Integumentary Reports other Details: Bleeding right foot Neurologic Neurologic: Reports paresthesias; Denies headache(s) or weakness Psychiatric Psychiatric: Denies anxiety or depression Endocrine Endocrinology: Denies cold intolerance or heat intolerance Hematologic/Lymphatic Hematologic/Lymphatic: Denies easy bleeding or easy bruising EXAM Physical Exam Const Vital Signs: 12/10/23 07:48 12/10/23 07:48 12/10/23 07:49 Temperature 98.1 F Temperature Source Oral Pulse Rate 82 76 Respiratory Rate 18 18 Respiratory Effort Normal Non-Labored Respiratory Depth Normal Respiratory Pattern Normal Blood Pressure 131/75 H Blood Pressure Mean 93 Blood Pressure Source Blood Pressure Position Blood Pressure Location Pulse Ox 97 97 Oxygen Delivery Method Room Air Room Air Room Air 12/10/23 08:46 12/10/23 08:50 12/10/23 09:00 Temperature 98.0 F Temperature Source Oral Pulse Rate 80 80 88 Respiratory Rate 18 18 18 Respiratory Effort Respiratory Depth Respiratory Pattern Blood Pressure 131/83 H 131/83 H Blood Pressure Mean 99 99 Blood Pressure Source Monitor Blood Pressure Position Semi-Fowlers Blood Pressure Location Right Arm Pulse Ox 95 96 98 Oxygen Delivery Method Room Air Room Air Room Air Positive well nourished and well developed Constitutional Narrative: Patient appears uncomfortable. He is shaking. General Appearance ED: well developed; Negative for NAD HEENT HEENT Narrative: Ears normal. atraumatic Nose: Negative for septum abnormal Eyes PERRL and EOMs intact bilaterally Chest Wall inspection of chest normal and palpation of chest normal Resp normal respiratory effort and clear to auscultation bilaterally Cardio regular rhythm, S1 normal heart sound, S2 normal heart sound and no murmurs Rate: regular rate Extremity Negative for normal to inspection or full ROM Extremity Narrative: There is laceration of the right great toe. There is a partial avulsion of the toenail of the right great toe. The right foot from the tarsometatarsal joint region distal is discolored. Cap refill is slightly delayed. Sensation is diminished. PT pulses palpable. DP pulse is not palpable. He does have a DP pulse on the left side. Neuro oriented x3 and CN's II-XII intact bilaterally Jason Coma Scale: document GCS findings Spontaneous Obeys Commands Oriented 15 Psych mental status grossly normal and thought process normal Skin Skin Narrative: Wound to right foot as previously described MDM MDM MDM Narrative Medical decision making narrative: Patient was made NPO. IV was established. He received 0.5 mg of Dilaudid. I am aware that he received 100 mcg of fentanyl. Fentanyl has a very short half-life and he is in obvious discomfort. Patient received a gram of Ancef. X-ray was obtained to delineate extent of injury. Concern patient has an open fracture. Blood work was obtained since there is concern he will need to go to the OR. Will contact podiatry once images have been completed. Lab Data Attestation: I reviewed the patient's lab results. Lab results narrative: CBC is normal. Basic metabolic panel is normal. Labs: Laboratory Results - last 24 hr 12/10/23 07:56 WBC 8.3 RBC 5.57 Hgb 16.5 Hct 49.2 MCV 88.3 MCH 29.6 MCHC 33.5 RDW Std Deviation 38.6 RDW Coeff of Gianni 11.9 Plt Count 261 MPV 11.1 Immature Gran % (Auto) 0.500 Neut % (Auto) 47.6 Lymph % (Auto) 36.4 Osborne % (Auto) 10.5 H Eos % (Auto) 4.0 Baso % (Auto) 1.0 Absolute Neuts (auto) 4.0 Absolute Lymphs (auto) 3.02 Nucleated RBC % 0 Sodium 141 Potassium 3.5 Chloride 107 Carbon Dioxide 28.0 Anion Gap 6 BUN 17 Creatinine 1.10 Estim Creat Clear Calc 91.98 Est GFR (MDRD) Af Amer 90 Est GFR (MDRD) Non-Af 74 BUN/Creatinine Ratio 15.5 Glucose 93 Calcium 8.9 Radiography Chest X-Ray - ED: Read by ED Physician (Three-view x-ray of the right foot reveals a comminuted fracture distal phalanx great toe, transverse fracture proximal condyles of the proximal phalanx second toe. It also appears a fracture of the proximal phalanx of the third and fourth toe. There is no foreign body noted.) Diagnostic Testing: Clinical Impression(s) from Imaging Studies Foot X-Ray 12/10/23 07:53 IMPRESSION: Transverse fracture through the distal aspect of the distal phalanx of the great toe, age indeterminate. Old ununited fractures of the distal aspect of the second proximal phalanx as well as the fifth middle phalanx. Mild soft tissue swelling of the dorsum of the forefoot. Electronically Signed: Dony Adam MD at 8:20 EDT , EKG Initial EKG: Attestation: I personally reviewed and interpreted this EKG as follows: Interpretation: Sinus Rhythm (Rate is 86. There is a premature atrial complex noted. The EKG is otherwise normal. [place] interval is 146. QRS duration 82 ms. QT duration 3 and 56 ms. [place] is normal) Management Discussion w/another healthcare provider: Hospitalist (Hospitalist contacted per Dr. Gonsalez's request for consultation and preoperative clearance, Dr. Carlos Pettit was made aware of patient.) and Household Appliance Installer (Dr. Issa reviewed films. He agrees patient needs go to the OR. Patient scheduled the OR at 11 AM. He was made aware of this. He was NPO.) Treatment and Re-Evaluation Narrative: Dr. Issa on for podiatry was paged at [phone]. Discharge Plan Dx/Rx/DC Orders Clinical Impression: Open displaced fracture of right great toe, Fracture of proximal phalanx of lesser toe of right foot, Nondisplaced fracture of proximal phalanx of toe of right foot, Traumatic avulsion of nail plate of toe, Crushing injury of right foot, initial encounter Disposition Disposition: Acute Care [facility]
[2023-12-10] MEDS: Diphth,Pertuss(Acell),Tet Vac 0.5 ML Vial IM (08:01)
[2023-12-10 08:12] LABS: Absolute Lymphocyte Count 3.02 X10^3/uL (0.83-4.51); Basophil# 0.08 X10^3/uL; Eosinophil# 0.33 X10^3/uL; Hematocrit 49.2 % (40-54); Hemoglobin 16.5 g/dL (13.0-16.5); Lymphocyte # 3.02 X10^3/ul (0.83-4.51); Lymphocyte % 36.4 % (19-41); Mean Corp Hgb Conc 33.5 g/dL (32-36); Mean Corpuscular Hgb 29.6 pg (27.0-32.0); Mean Corpuscular Volume 88.3 fL (80-94); Mean Platelet Vol. 11.1 fl (6.2-12.0); Monocyte# 0.87 X10^3/uL; Monocyte% 10.5 % (0-10); NRBC Flagged by Analyzer 0 % (0-5); Neutrophil # 3.96 X10^3/uL (2.7-7.7); Neutrophil % 47.6 % (47-70); Platelet Count 261 K/mm3 (150-450); RBC Distribution Width CV 11.9 % (11.6-14.6); RBC Distribution Width SD 38.6 fl (35.1-43.9); Red Blood Count 5.57 M/mm3 (4.6-6.2); White Blood Count 8.3 K/mm3 (4.4-11.0)
[2023-12-10] MEDS: Cefazolin 1 GM/50 ML BAG IV (08:15)
[2023-12-10 08:17] LABS: Anion Gap 6 (5-15); BUN 17 mg/dL (7-18); BUN/Creat Ratio 15.5 RATIO (10-20); Calcium,Total 8.9 mg/dL (8.5-10.1); Chloride 107 mmol/L (98-107); EST Glomerular Filtration Rate 74 mL/min (>60); Est Glom Filt Rate - Afr Amer 90 mL/min (>60); Estimated Creatinine Clearance 91.98 ml/min; Glucose 93 mg/dL (74-106); Potassium 3.5 mmol/L (3.5-5.1); Sodium Level 141 mmol/L (136-145)
[2023-12-10] MEDS: Midazolam 2 MG/2 ML Syringe 1 MG IV (08:31)
--- NOTE | 2023-12-10 08:51 | NURSING ---
SURGERY DR MATHEWS OPEN FRACTURE GREAT TOE, MULTIPLE FRACTURES
--- NOTE | 2023-12-10 08:54 | NURSING ---
DR STERN FOR DR MUNSON
--- NOTE | 2023-12-10 08:55 | EKG12_ITS ---
Test Reason : FOOT INJURY Blood Pressure : / mmHG Vent. Rate : 086 BPM Atrial Rate : 086 BPM P-R Int : 146 ms QRS Dur : 082 ms QT Int : 356 ms P-R-T Axes : 053 010 048 degrees QTc Int : 426 ms Sinus rhythm with Premature atrial complexes Otherwise normal ECG Confirmed by Mukesh Liang ([id number]), communications editor BUCK BRYANT ([id number]) on 12/13/2023 9:12:27 AM Referred By: Confirmed By:Mukesh Liang
--- NOTE | 2023-12-10 08:57 | NURSING ---
NO OLD EKGS
--- NOTE | 2023-12-10 09:07 | NURSING ---
MED SURG REID OPEN TOE FRACTURE, MULTIPLE FRACTURES
[2023-12-10] MEDS: Lactated Ringers 1,000 ML 15 ML IV (10:41)
--- NOTE | 2023-12-10 10:50 | PCM.PRE.AN2 ---
ASA Classification* ASA Classification ASA Classification: 2 and E Assessment & Plan Anesthesia* Anesthesia Assessment Anesthesia Assessment: Discussed sedation and/or anesthesia options, risks, benefits, and alternatives with patient/parents/legal guardian/POA. Questions invited. The patient/parents/legal guardian/POA seems to understand and agrees to proceed with anesthesia plan. Reviewed the physical assessment, medical history, allergy history and patient home medications list prior to surgery/procedure/anesthetic and documented any changes. Performed airway and anesthesia risk assessments. Anesthesia Type Anesthesia Type: Spinal (consented for block if surgeon request) Anesthesia Focused Assessment* Temperature: 98.1 F Pulse Rate: 78 Blood Pressure: 122/83 Respiratory Rate: 18 Pulse Ox: 100 Airway Assessment Mouth opens: >3 cm Mallampati Score: II Focused Labs Anesthesia Preop lab: CBC WBC 8.3 K/mm3 (4.4-11.0) 12/10/23 07:56 RBC 5.57 M/mm3 (4.6-6.2) 12/10/23 07:56 Hgb 16.5 g/dL (13.0-16.5) 12/10/23 07:56 Hct 49.2 % (40-54) 12/10/23 07:56 Plt Count 261 K/mm3 (150-450) 12/10/23 07:56 CHEMISTRY Potassium 3.5 mmol/L (3.5-5.1) 12/10/23 07:56 Sodium 141 mmol/L (136-145) 12/10/23 07:56 BUN 17 mg/dL (7-18) 12/10/23 07:56 Creatinine 1.10 mg/dL (0.70-1.30) 12/10/23 07:56 Glucose 93 mg/dL (74-106) 12/10/23 07:56 TSH 0.51 uIU/mL (0.358-3.74) 08/29/21 08:53 COAG Pre-Assessment Diagnosis/Proposed Procedure Planned Operative Procedure(s): ORIF Open foot Fracture Anesthesia History Anesthesia History - waste minimization technician: 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 When Was Last Pacemaker Check QUESTION #4 FULL TEXT: You/Your Family Experience fever (hyperthermia) with Anesthesia Last Oral Intake Last Oral intake: Last Oral Intake NPO since 07:00 12/10/23 08:50 Meds taken in AM with sips of water? Meds patient instructed to take am of surgery PONV PONV - waste minimization technician: PONV - waste minimization technician Female HX of Motion Sickness HX of N/V After Surgery Non-Smoker Duration of Surgery greater than 60 minutes Number of Risk Factors PONV Score Height & Weight Height & Weight: Anesthesia: Height & Weight Height 5 ft 9 in 12/10/23 08:50 Weight: 100.9 kg 12/10/23 08:50 Body Mass Index (BMI) 32.8 12/10/23 08:50 Respiratory Assessment Respiratory Assessment - waste minimization technician: Respiratory Tract Infection Hx - waste minimization technician Hx Respiratory Tract Infection Yes 12/10/23 08:50 STOP Sleep Apnea STOP Sleep Apnea - waste minimization technician: STOP Sleep Apnea - waste minimization technician Hx Hypertension No 12/10/23 08:50 Hx Sleep Apnea No 12/10/23 08:50 CPAP BIPAP Do you snore loudly (louder No 12/10/23 08:50 than talking or can be heard Do you often feel tired/ No 12/10/23 08:50 fatigued/ sleepy during daytime? Has anyone observed you stop No 12/10/23 08:50 breathing during sleep? STOP Results Negative 12/10/23 08:50 QUESTION #5 FULL TEXT : Do you snore loudly (louder than talking or can be heard through closed doors)? Tobacco Use History Tobacco Use History - waste minimization technician: Tobacco Use History - waste minimization technician Tobacco Use Smoking Status Never smoker 12/10/23 07:48 Hx Tobacco Use No 09/15/23 13:01 Years Smoking Packs Smoked per Day Smoking Cessation Date was within the last 15 years Hx Smoking Cessation Date Hx Smoking Cessation Counseling Hematologic Medial History Hematologic Hx - waste minimization technician: Hematologic Medical Hx - support associate Hx of Blood Transfusion Hx of Transfusion in last 3 Months Date of Last Transfusion (if within last 3 months) Ever experience any problems with transfusion(s)? Specify any problems Hx of Preganancy in last 3 Months Nurse Filling Out Transfusion & Questions: Date: Time: Patient unable to answer at this time (ie. confused, unrespo /Reproduction History /Reproductive History - waste minimization technician: /Reproductive Hx- waste minimization technician Hx Now Gestational Age (in weeks): EDC: Hx Hx Para Hx Section SAB No 09/15/23 13:01 Active Medications Active Medications: Current Medications Generic Name Dose Route Start Last Admin Trade Name Freq PRN Reason Stop Dose Admin Sodium Chloride 1,000 mls @ 250 mls/hr 12/10/23 07:55 12/10/23 08:00 IV 250 mls/hr .Q4H RADHA Administration Ampicillin Sodium/Sulbactam 112 mls @ 150 mls/hr 12/10/23 12:00 Sodium 3 gm/ Sodium Chloride IV Q6 RADHA Lactated Ringer's 1,000 mls @ 15 mls/hr 12/10/23 10:45 12/10/23 10:41 IV 15 mls/hr .Q48H RADHA Administration PFSH Medical History Wears glasses History of steroid therapy Non-smoker Left wrist pain Migraines Arthritis Seasonal allergies Home Medications ?Medication ?Instructions ?Recorded ?Last Taken ?Type multivitamin (Daily Multi-Vitamin 1 tab PO DAILY 09/15/23 Unknown History tablet) amoxicillin 875 mg-potassium 1 tab PO Q12.TCU 12/10/23 Unknown History clavulanate 125 mg tablet Allergy/AdvReac Type Severity Reaction Status Date / Time No Known Allergies Allergy Verified 09/22/23 12:52 Family History Father Heart disease Hypertension Diabetes Mother Heart disease Surgical History H/O removal of cyst H/O sinus surgery Social History household members: spouse current occupational status: employed Smoking Status: Never smoker alcohol intake: never substance use type: does not use Review of Systems (Anesthesia) ROS Narrative System reviewed and no additional complaints, except as documented.
--- NOTE | 2023-12-10 13:00 | RAD_ITS ---
STUDY: X-RAY RIGHT FOOT, FIRST TOE REASON FOR EXAM: Male, 52 years old. Intraoperative digital documentation views first and second digits effusions. TECHNIQUE: 10 intraoperative digital documentation view(s) of the toe were obtained. COMPARISON: Right foot x-rays dated December 10, 2023 FINDINGS: 10 intraoperative digital documentation views show pin placement through the phalanges of the first and second digits. Transverse fracture of the distal aspect of the distal phalanx of the first digit is also again noted. 139 images were acquired. 12 images were saved. Total exposure time 4 minutes. Largest single exposure 17 seconds. Total POORNIMA 24.4389 cGy/cm2 Total air kerma 1.4547 mGy. RAD/Toe(s) Min 2 Views IMPRESSION: Intraoperative digital documentation views as described. Electronically Signed: Ken Alfaro MD at 13:51 EDT ,
--- NOTE | 2023-12-10 13:10 | OP.PCM_ITS ---
Problems Associated Problem List Diagnoses (1) Crushing injury of right foot, initial encounter: (2) Open fracture of distal phalanx of right great toe: (3) Closed displaced fracture of lesser toe of left foot: (4) Non-pressure chronic ulcer of other part of right foot with necrosis of bone: Report of Operation Date of Procedure: 12/10/23 Pre-Operative Diagnosis: 1. Open displaced fracture distal phalanx right hallux 2. Closed displaced fracture proximal phalangeal head right second toe 3. Full-thickness wound down to level bone secondary to traumatic injury Post-Operative Diagnosis: Same Surgery/Procedure Performed:: 1. Debridement right hallux open fracture down to level of bone and including bone with pulse lavage irrigation 2. Open reduction internal fixation right distal phalanx fracture 3. Percutaneous pinning right second toe proximal phalangeal head fracture 4. Delayed primary closure right hallux wound 5. Application of skin substitute graft right hallux Description of Surgical Findings:: Patient this morning presented to the ED after a gait collapse on his right foot. Despite the patient wearing steel toed shoes he suffered a laceration involving the right hallux with dislocated fractures to the distal phalanx of the right hallux and proximal second toe phalanx. There is a closed nondisplaced fifth digit fracture as well. Due to open nature of injury and risk of digital loss decision was made for debridement skeletal stabilization via pinning and closure of wound after irrigation. Patient agreed and this was proceeded with. Surgeon: Hiram Gonsalez freight loading supervisor: None Type of Anesthesia: Spinal Special Medications: none Specimen's removed: none Drains: none Estimated Blood Loss (mL): 30cc Description of Procedure: Patient was brought back the operating placed comfortably in the supine position on the operating room table. Patient was induced under spinal anesthesia. Well-padded right ankle tourniquet was applied to right lower extremity. Right lower extremity scrubbed prepped draped using typical aseptic fashion. Once cleared by anesthesia procedure #1 was proceeded with No tourniquet used was needed Procedure #1: Debridement right hallux open fracture wound down to including level of bone CPT code 49463 Upon observation and further examination there was diffuse degloving of the distal hallux with laceration extending down to level of bone. This created a 1 x 3.0 x 2.0 cm void. To explain simply patient nearly amputated his entire toe with the severity of the injury the only soft tissue that remained intact keeping the toe in place with the plantar skin. This area exposed wound was debrided there was some nonviable bone that was removed from the wound site using bone rongeurs. This site was flushed with copious amounts of normal sterile saline using low-pressure pulse lavage. Additionally atraumatic removal of the right hallux toenail was performed. Procedure #2: Open reduction internal fixation right hallux distal phalanx fracture: CPT 14023 Using 2.0062 K wires these were used to penetrate the distal phalangeal fracture fragment and the distal phalangeal fracture fragment was manipulated back to the proximal portion of the fracture fragment in a reduced position and pinned there with 2 crossing 0.0062 K wires. Adequate alignment was observed intraoperatively as well as with fluoroscopic imaging. Procedure #3: Percutaneous pinning right second toe displaced proximal phalangeal fracture: CPT 77959 The right second toe was placed in a rectus alignment in a reduced position and a 6 a pin was placed from an antegrade position across the distal phalanx into the middle phalanx crossing the distal interphalangeal joint into the proximal phalangeal head fracture fragment and the fracture fragment was held in a reduced position against the proximal portion of the proximal phalanx and this was pinned across the fracture site with the toe held in a reduced position was confirmed with multiple fluoroscopic imaging. It was a 0.0062 K wire. Procedure #4: Delayed primary closure right hallux wound down to level bone: CPT 36736 Next the site was flushed again with copious amounts normal sterile saline. The skin edges were mobilized there is noted to be a double laceration to the nailbed. This was closed in a delayed primary fashion using simple interrupted 4-0 Prolene. Procedure #5: Application of skin substitute graft right hallux nail bed wound: 78028 CPT A 2 x 4 cm [employer] graft was applied to the nailbed wound and secured with overlying Betadine Adaptic additionally the pin sites were dressed with Betadine Adaptic 4 x 4's 2 Kerlix and a lightly wrapped Matias bandage. After the procedure there was noted to be some capillary refill to the distal tuft of the hallux on the right side. Additionally there is noted be intact capillary refill to the second third fourth and fifth toe at this time. Patient was transferred to PACU vital signs stable vascular status intact for all blood to all digits for further monitoring prior to discharge tomorrow. Patient to be transferred to the floor. Patient tolerated procedure and anesthesia well) right great condition. Adequate reduction of right hallux and second toe fractures. Adequate apposition of laceration site post closure. No complications. Grafts/Implants Used: [employer] 2 x 4 cm Complications None Admit VTE Documentation VTE Present on Admission: Yes VTE Pharm Prophylaxis ordered?: Yes
--- NOTE | 2023-12-10 13:16 | PCM.POST.ANE ---
Anesthesia: Postop Eval I Current Vital Signs Temperature: 98.1 F Pulse Rate: 64 Blood Pressure: 111/85 Respiratory Rate: 14 Pulse Ox: 98 Oxygen Delivery Method: Room Air Assessment Airway patent: Yes Spontaneous unlabored respirations: Yes Mental status: Awake and Calm nausea: No Vomiting: No Anesthesia Complication: No Fluid Hydration Crystalloid volume administer (ml): 1,500 Total IV fluid infused: 1,500 Progress Note Anesthesia document: Postop Eval 1 completed: Yes
--- NOTE | 2023-12-10 13:24 | PCM.HP.STD ---
HPI - General General Date of Admission: 12/10/23 HPI Narrative CASPER GONZALEZ, is a 52 M who presents after suffering a crush injury while at work today. A lift gate fell on his right foot and despite wearing steel toed shoes he suffered a laceration fractures to the right hallux second toe and fifth toe. Patient admitted due to concern for neurovascular status loss and open fracture for emergent surgical debridement and skeletal stabilization. Patient will has no constitutional symptoms. Patient pain controlled at current. No other complaints. [facility] Medical History Wears glasses History of steroid therapy Non-smoker Left wrist pain Migraines Arthritis Seasonal allergies Home Medications ?Medication ?Instructions ?Recorded ?Last Taken ?Type multivitamin (Daily Multi-Vitamin 1 tab PO DAILY 09/15/23 Unknown History tablet) amoxicillin 875 mg-potassium 1 tab PO Q12.TCU 12/10/23 Unknown History clavulanate 125 mg tablet Allergy/AdvReac Type Severity Reaction Status Date / Time No Known Allergies Allergy Verified 09/22/23 12:52 Family History Father Heart disease Hypertension Diabetes Mother Heart disease Surgical History H/O removal of cyst H/O sinus surgery Social History household members: spouse current occupational status: employed Smoking Status: Never smoker alcohol intake: never substance use type: does not use ROS Constitutional Constitutional: Denies change in weight, chills or headache(s) Eyes Eyes: Denies acute decrease in peripheral vision, change in eye color or discongugate gaze ENT HEENT: Denies bleeding gums, change in voice or epistaxis Cardiovascular Cardiovascular: Denies abdominal edema, abdominal pain or chest pain at rest Respiratory/Chest Respiratory/Chest: Denies change in phlegm color, dusky skin or dyspnea Gastrointestinal Gastrointestinal: Denies belching, bloating or constipation Vital Signs Vital Signs Vital Signs: 12/10/23 07:48 12/10/23 07:48 12/10/23 07:49 Temperature 98.1 F Temperature Source Oral Pulse Rate 82 76 Respiratory Rate 18 18 Respiratory Effort Normal Non-Labored Respiratory Depth Normal Respiratory Pattern Normal Blood Pressure 131/75 H Blood Pressure Mean 93 Blood Pressure Source Blood Pressure Position Blood Pressure Location Baseline BP Pulse Ox 97 97 Oxygen Delivery Method Room Air Room Air Room Air 12/10/23 08:46 12/10/23 08:50 12/10/23 09:00 Temperature 98.0 F Temperature Source Oral Pulse Rate 80 80 88 Respiratory Rate 18 18 18 Respiratory Effort Respiratory Depth Respiratory Pattern Blood Pressure 131/83 H 131/83 H Blood Pressure Mean 99 99 Blood Pressure Source Monitor Blood Pressure Position Semi-Fowlers Blood Pressure Location Right Arm Baseline BP Pulse Ox 95 96 98 Oxygen Delivery Method Room Air Room Air Room Air 12/10/23 10:04 12/10/23 10:51 12/10/23 13:10 Temperature 98.1 F 98.1 F 98.1 F Temperature Source Temporal Pulse Rate 78 78 70 Respiratory Rate 18 18 16 Respiratory Effort Respiratory Depth Respiratory Pattern Normal Blood Pressure 122/83 H 122/83 H 111/86 H Blood Pressure Mean 96 94 Blood Pressure Source Monitor Blood Pressure Position Semi-Fowlers Blood Pressure Location Right Arm Baseline BP 122/83 Pulse Ox 100 100 97 Oxygen Delivery Method Room Air 12/10/23 13:15 12/10/23 13:17 Temperature 98.1 F Temperature Source Pulse Rate 62 64 Respiratory Rate 16 14 Respiratory Effort Respiratory Depth Respiratory Pattern Blood Pressure 113/88 H 111/85 H Blood Pressure Mean 96 Blood Pressure Source Monitor Blood Pressure Position Semi-Fowlers Blood Pressure Location Right Arm Baseline BP 122/83 Pulse Ox 95 98 Oxygen Delivery Method Room Air Room Air Weight Weight: 100.9 kg Body Mass Index (BMI) 32.8 Physical Exam Narrative Noted be some violaceous changes to digits 1 through 5 the right foot. Palpable dorsalis pedis posterior tibial pulses noted to the injured side. Some capillary refill time is noted to the distal mitchell of digits 1-3 4 5 on the right lower extremity. Full-thickness laceration to right hallux down to level of bone with diffuse instability of the right hallux distal tuft as well as instability of the right second toe secondary to fracture. There is pain to palpation of the sites as well. No acute signs of infection noted. Const alert and oriented x3 Results Lab / Micro Data 12/10/23 07:56 12/10/23 07:56 Labs: Laboratory Results - last 24 hr 12/10/23 07:56: WBC 8.3, RBC 5.57, Hgb 16.5, Hct 49.2, MCV 88.3, MCH 29.6, MCHC 33.5, RDW Std Deviation 38.6, RDW Coeff of Gianni 11.9, Plt Count 261, MPV 11.1, Immature Gran % (Auto) 0.500, Neut % (Auto) 47.6, Lymph % (Auto) 36.4, [place] % (Auto) 10.5 H, Eos % (Auto) 4.0, Baso % (Auto) 1.0, Absolute Neuts (auto) 4.0, Absolute Lymphs (auto) 3.02, Nucleated RBC % 0, Sodium 141, Potassium 3.5, Chloride 107, Carbon Dioxide 28.0, Anion Gap 6, BUN 17, Creatinine 1.10, Estim Creat Clear Calc 91.98, Est GFR (MDRD) Af Amer 90, Est GFR (MDRD) Non-Af 74, BUN/Creatinine Ratio 15.5, Glucose 93, Calcium 8.9 Imaging Radiology Impression Foot X-Ray 12/10/23 07:53 IMPRESSION: Transverse fracture through the distal aspect of the distal phalanx of the great toe, age indeterminate. Old ununited fractures of the distal aspect of the second proximal phalanx as well as the fifth middle phalanx. Mild soft tissue swelling of the dorsum of the forefoot. Electronically Signed: Dony Adam MD at 8:20 EDT Reading Location ID and State: [facility] / [place] , Service support , Assessment & Plan Assessment/Plan (1) Non-pressure chronic ulcer of other part of right foot with necrosis of bone: PLAN: Exam performed. Radiographs reviewed with patient. Discussed risk of digital loss due to crush injury causing diffuse soft tissue trauma that can lead to soft tissue necrosis or subsequent bone infection leading to amputation. Due to this emergent treatment was performed with surgical debridement and skeletal stabilization as well as closure of the wound site. IV Unasyn 3 g Q6 started. Internal medicine consulted. Patient nonweightbearing right lower extremity. Will plan for dressing change tomorrow. Therapy ordered. Patient can have normal diet at current. (2) Closed displaced fracture of lesser toe of left foot: QUALIFIERS: Encounter type: initial encounter Phalanx: proximal Qualified Code(s): S92.512A - Displaced fracture of proximal phalanx of left lesser toe(s), initial encounter for closed fracture (3) Open fracture of distal phalanx of right great toe: QUALIFIERS: Encounter type: initial encounter Fracture alignment: displaced Qualified Code(s): S92.421B - Displaced fracture of distal phalanx of right great toe, initial encounter for open fracture (4) Crushing injury of right foot, initial encounter:
[2023-12-10] MEDS: Ampicillin/Sulbactam 3 GM in 0.9% Normal Saline (100mL MB+) 100 ML IV ×3 (15:16→22:58)
[2023-12-10] MEDS: oxyCODONE 5 MG Tablet PO ×2 (17:20→20:34)
--- NOTE | 2023-12-10 17:48 | PCM.PN.HOSP ---
Reason for Visit Reason for Visit: Diagnoses Non-pressure chronic ulcer of other part of right foot with necrosis of bone (12/10/23) Displaced fracture of distal phalanx of right great toe, initial encounter for open fracture (12/10/23) Displaced unspecified fracture of left lesser toe(s), initial encounter for closed fracture (12/10/23) Displaced fracture of proximal phalanx of left lesser toe(s), initial encounter for closed fracture (12/10/23) Crushing injury of right foot, initial encounter (12/10/23) Subjective Subjective Patient was seen and examined today at request of podiatry, patient had an accident at work today and a crushing injury occurred to his right foot causing an open fracture of the distal phalanx of the right great toe, fracture of the right second toe, and a fracture of the right fifth toe. Patient has a history of migraines and arthritis but takes no medication on a chronic basis currently. Objective Data Objective Data Vital Signs: Vital Signs Temp Pulse Resp BP Pulse Ox O2 Del Method 98.7 F 100 16 140/80 H 96 Room Air 12/10/23 17:28 12/10/23 17:28 12/10/23 17:28 12/10/23 17:28 12/10/23 17:28 12/10/23 15:50 Oxygen Delivery Method Room Air Weight: 104.326 kg Body Mass Index (BMI) 34.0 Intake & Output: Intake and Output for Last 24 Hours 12/08/23 12/09/23 12/10/23 23:59 23:59 23:59 Intake Total 1418.75 / 1418.75 Balance 1418.75 / 1418.75 Lab / Micro Data 12/10/23 07:56 12/10/23 07:56 Labs: Laboratory Results - last 24 hr 12/10/23 07:56: WBC 8.3, RBC 5.57, Hgb 16.5, Hct 49.2, MCV 88.3, MCH 29.6, MCHC 33.5, RDW Std Deviation 38.6, RDW Coeff of Gianni 11.9, Plt Count 261, MPV 11.1, Immature Gran % (Auto) 0.500, Neut % (Auto) 47.6, Lymph % (Auto) 36.4, [place] % (Auto) 10.5 H, Eos % (Auto) 4.0, Baso % (Auto) 1.0, Absolute Neuts (auto) 4.0, Absolute Lymphs (auto) 3.02, Nucleated RBC % 0, Sodium 141, Potassium 3.5, Chloride 107, Carbon Dioxide 28.0, Anion Gap 6, BUN 17, Creatinine 1.10, Estim Creat Clear Calc 91.98, Est GFR (MDRD) Af Amer 90, Est GFR (MDRD) Non-Af 74, BUN/Creatinine Ratio 15.5, Glucose 93, Calcium 8.9 Micro: Microbiology 12/10/23 13:19 Wound - Toe Gram Stain - Final Radiography Diagnostic Testing: Radiology Impression Foot X-Ray 12/10/23 07:53 IMPRESSION: Transverse fracture through the distal aspect of the distal phalanx of the great toe, age indeterminate. Old ununited fractures of the distal aspect of the second proximal phalanx as well as the fifth middle phalanx. Mild soft tissue swelling of the dorsum of the forefoot. Electronically Signed: Dony Adam MD at 8:20 EDT , Toe X-Ray 12/10/23 13:00 IMPRESSION: Intraoperative digital documentation views as described. Electronically Signed: Ken Alfaro MD at 13:51 EDT , Physical Exam Const alert, oriented x3, no apparent distress and healthy appearing General Appearance: cooperative, well kempt and well developed Orientation / Consciousness: awake, oriented to person, oriented to place and oriented to time HEENT normocephalic and moist oral mucous membranes Eyes PERRL, EOMs intact bilaterally and conjunctivae normal Neck supple, no JVD, thyroid normal and no carotid bruits General: trachea midline Resp normal respiratory effort, no retractions, no use of accessory muscles and clear to auscultation bilaterally Auscultation: Negative for rales, rhonchi or wheezes Cardio regular rate, regular rhythm, S1 normal heart sound, S2 normal heart sound, no murmurs, no rub and no gallops GI normal to inspection, nondistended, normoactive bowel sounds, soft to palpation, non-tender and non-distended Extremity Extremity Narrative: Patient's right lower leg is in the splint, surgical dressing is covering the right foot area and there is a fixation pin visible sticking out of the dressing Neuro oriented x3, CN's II-XII intact bilaterally, no focal motor deficits and no sensory deficits noted Sensorium / Orientation: awake and alert Speech: speech normal Psych affect normal Assessment & Plan Assessment/Plan (1) Open fracture of distal phalanx of right great toe: QUALIFIERS: Encounter type: initial encounter Fracture alignment: displaced Qualified Code(s): S92.421B - Displaced fracture of distal phalanx of right great toe, initial encounter for open fracture PLAN: Plan 1. Crush injury of the right foot resulting in fracture of the great toe, second toe, and little toe-care per podiatry, patient will be seen by PT and OT, patient is currently on Unasyn and pain medications. #2 chronic arthritis-requiring no treatment #3 chronic migraines-patient is on no medications Total clinical time spent by myself addressing patient's medical issues, reviewing all of his data, and collaborating with patient's care team: 25 minutes Charges/Coding Visit Charges Inpatient E&M: 82316 Subs Hosp L1
[2023-12-10] MEDS: HYDROmorphone 0.5 MG/0.5 ML SYRINGE IV ×2 (18:46→22:53)
[2023-12-10] MEDS: Acetaminophen 325 MG Tablet 650 MG PO (20:34)
[2023-12-11 01:34] VITALS: BP 139/82; PULSE 82; RESP 20; TEMP 36.4; O2SAT 93
[2023-12-11] MEDS: oxyCODONE 5 MG Tablet PO ×2 (01:36→06:31)
[2023-12-11] MEDS: 0.9% Saline Lock 10 ML Syringe IV ×2 (01:46→08:18)
[2023-12-11] MEDS: Acetaminophen 325 MG Tablet 650 MG PO (03:13)
[2023-12-11] MEDS: HYDROmorphone 0.5 MG/0.5 ML SYRINGE IV ×2 (03:16→13:43)
[2023-12-11] MEDS: Ampicillin/Sulbactam 3 GM in 0.9% Normal Saline (100mL MB+) 100 ML IV ×3 (06:32→17:57)
[2023-12-11 06:36] VITALS: BP 126/70; PULSE 67; RESP 18; TEMP 36.3; O2SAT 94
[2023-12-11] MEDS: HYDROmorphone 1 MG/ML Syringe IV (08:17)
[2023-12-11 09:22] VITALS: BP 116/68; PULSE 57; RESP 16; TEMP 36.4; O2SAT 98
--- NOTE | 2023-12-11 10:25 | PCM.PROGNOTE ---
Subjective Subjective 52-year-old male 1 day postop right foot hallux open fracture, second toe closed fracture repair. Patient denies constitutional symptoms. Patient had significant pain overnight necessitating additional stay. Patient pain controlled at current and noted to be improved with removal of Matias bandage. No other complaints. Objective Data Objective Data Vital Signs: Vital Signs Temp Pulse Resp BP Pulse Ox O2 Del Method 97.6 F L 57 L 16 116/68 98 Room Air 12/11/23 09:22 12/11/23 09:22 12/11/23 09:22 12/11/23 09:22 12/11/23 09:22 12/11/23 09:22 Oxygen Delivery Method Room Air Weight: 104.326 kg Body Mass Index (BMI) 34.0 Intake & Output: Intake and Output for Last 24 Hours 12/09/23 12/10/23 12/11/23 23:59 23:59 23:59 Intake Total 1642.75 / 1754.75 224 / 224 Output Total 600 / 600 800 / 800 Balance 1042.75 / 1154.75 -576 / -576 Lab / Micro Data 12/10/23 07:56 12/10/23 07:56 Micro: Microbiology 12/10/23 13:19 Wound - Toe Gram Stain - Final Radiography Diagnostic Testing: Radiology Impression Toe X-Ray 12/10/23 13:00 IMPRESSION: Intraoperative digital documentation views as described. Electronically Signed: Ken Alfaro MD at 13:51 EDT Reading Location ID and State: [address] [place] [address] , Service support , Physical Exam Narrative Neurovascular status unchanged. Percutaneous pins to right hallux and second toe noted to be intact. Laceration to right hallux noted to be well-approximated with intact skin. Some pallor noted to the distal tuft of the right hallux. Rectus alignment right hallux second toe Assessment & Plan Assessment/Plan (1) Non-pressure chronic ulcer of other part of right foot with necrosis of bone: PLAN: Exam performed. Intact right hallux repair and second toe repair site. Will observe soft tissue for signs of necrosis due to severe crush injury. Will consider hallux amputation pending failed healing or continued severe pain to the right hallux At current repair sites appear to be intact and healing well. Patient continue nonweightbearing right lower extremity. Will continue Unasyn until discharge. Patient will follow-up with me weekly upon discharge. (2) Open fracture of distal phalanx of right great toe: QUALIFIERS: Encounter type: initial encounter Fracture alignment: displaced Qualified Code(s): S92.421B - Displaced fracture of distal phalanx of right great toe, initial encounter for open fracture (3) Closed displaced fracture of lesser toe of right foot: QUALIFIERS: Encounter type: initial encounter Phalanx: proximal Qualified Code(s): S92.511A - Displaced fracture of proximal phalanx of right lesser toe(s), initial encounter for closed fracture
[2023-12-11] MEDS: oxyCODONE 5 MG Tablet 15 MG PO ×3 (10:46→20:32)
--- NOTE | 2023-12-11 12:50 | CASEMGMT ---
NABILA ODELL Assessment: Face to Face with pt for initial transition planning/care coordination assessment. NABILA ODELL introduced self and role at [facility], pt voices understanding and consents to assessment. Pt is A&O x4 and answers all questions appropriately at this time. Pt sitting up in bed, in a lot of pain. Nurse made aware. Pt , son, DIL in room; pt is agreeable to answering questions with family in the room. Care providers, pharmacy, and demographics verified/updated. Strata: 2 Admitting Dx: Open Fx, multiple toe fractures, crush. PCP: Michelle Specialists: Denies Preferred Pharmacy: [facility] Insurance: [facility] [place] [id number] Prescription Benefit: yes LNOK: Living Arrangements: Pt lives with in a ranch home with 3 steps to enter. ADLs: Pt states I with ADLs and IADLs Transportation: Pt drives self and denies concerns with transportation. able to assist with transportation until able to drive again. DME:Denies HHC/SNF: Denies Hx of Pt states no concerns with going home at time of dc. Pt does not have crutches, NABILA ODELL printed script and placed green sheet in chart. Pt states no further concerns/needs. CM to follow. Advised pt to ask CM if any further question/concerns/needs arise, voices understanding. Pt Goal: Home Plan: Home, follow plan of care. Will need crutches delivered to room. Constantino DAHL CM
[2023-12-11] MEDS: Acetaminophen 500 MG Tablet 1000 MG PO ×2 (13:51→20:31)
[2023-12-11 14:00] VITALS: BP 113/64; PULSE 69; RESP 18; TEMP 36.4; O2SAT 94
--- NOTE | 2023-12-11 15:17 | PCM.PN.HOSP ---
Reason for Visit Reason for Visit: Diagnoses Non-pressure chronic ulcer of other part of right foot with necrosis of bone (12/10/23) Displaced fracture of distal phalanx of right great toe, initial encounter for open fracture (12/10/23) Displaced unspecified fracture of left lesser toe(s), initial encounter for closed fracture (12/10/23) Displaced fracture of proximal phalanx of right lesser toe(s), initial encounter for closed fracture (12/10/23) Displaced fracture of proximal phalanx of left lesser toe(s), initial encounter for closed fracture (12/10/23) Crushing injury of right foot, initial encounter (12/10/23) Subjective Subjective Patient was seen and examined today, he still having quite a bit of right foot pain, I did talk to podiatry and I adjusted the patient's pain medication. Patient does not feel comfortable going home today due to the amount of pain he is having, he will be reevaluated tomorrow morning for possible discharge. Objective Data Objective Data Vital Signs: Vital Signs Temp Pulse Resp BP Pulse Ox O2 Del Method 97.6 F L 69 18 113/64 94 Room Air 12/11/23 14:00 12/11/23 14:00 12/11/23 14:00 12/11/23 14:00 12/11/23 14:00 12/11/23 14:00 Oxygen Delivery Method Room Air Weight: 104.326 kg Body Mass Index (BMI) 34.0 Intake & Output: Intake and Output for Last 24 Hours 12/09/23 12/10/23 12/11/23 23:59 23:59 23:59 Intake Total 1642.75 / 1754.75 336 / 336 Output Total 600 / 600 800 / 800 Balance 1042.75 / 1154.75 -464 / -464 Lab / Micro Data 12/10/23 07:56 12/10/23 07:56 Micro: Microbiology 12/10/23 13:19 Wound - Toe Gram Stain - Final Physical Exam Const alert, oriented x3, no apparent distress, average body habitus and healthy appearing General Appearance: cooperative, well kempt and well developed Orientation / Consciousness: awake, oriented to person, oriented to place and oriented to time HEENT normocephalic and moist oral mucous membranes Eyes PERRL, EOMs intact bilaterally and conjunctivae normal Neck supple, no JVD, thyroid normal and no carotid bruits General: trachea midline Resp normal respiratory effort and clear to auscultation bilaterally Auscultation: Negative for rales, rhonchi or wheezes Cardio regular rate, regular rhythm, no murmurs, no rub and no gallops GI normal to inspection, nondistended, normoactive bowel sounds, soft to palpation, non-tender and non-distended Extremity Extremity Narrative: Right lower extremity is wrapped with surgical dressing and has a splint in place Neuro oriented x3, CN's II-XII intact bilaterally, no focal motor deficits and no sensory deficits noted Sensorium / Orientation: awake and alert Speech: speech normal Psych affect normal Assessment & Plan Assessment/Plan (1) Closed displaced fracture of lesser toe of right foot: QUALIFIERS: Encounter type: initial encounter Phalanx: proximal Qualified Code(s): S92.511A - Displaced fracture of proximal phalanx of right lesser toe(s), initial encounter for closed fracture (2) Open fracture of distal phalanx of right great toe: QUALIFIERS: Encounter type: initial encounter Fracture alignment: displaced Qualified Code(s): S92.421B - Displaced fracture of distal phalanx of right great toe, initial encounter for open fracture PLAN: Plan 1. Crush injury of the right foot resulting in fracture of the great toe, second toe, and little toe-care per podiatry, patient will be seen by PT and OT, patient is currently on Unasyn and pain medications. #2 chronic arthritis-requiring no treatment #3 chronic migraines-patient is on no medications #4 uncontrolled pain secondary to #1-patient's pain medications were adjusted today Total clinical time spent by myself addressing patient's medical issues, reviewing all of his data, and collaborating with patient's care team: 25 minutes Charges/Coding Visit Charges Inpatient E&M: 79951 Subs Hosp L1
[2023-12-11 20:49] VITALS: BP 117/73; PULSE 77; RESP 16; TEMP 36.6; O2SAT 96
[2023-12-12] MEDS: Ampicillin/Sulbactam 3 GM in 0.9% Normal Saline (100mL MB+) 100 ML IV ×2 (00:34→04:36)
[2023-12-12] MEDS: oxyCODONE 5 MG Tablet 15 MG PO ×3 (00:34→09:55)
[2023-12-12] MEDS: Acetaminophen 500 MG Tablet 1000 MG PO (04:36)
[2023-12-12 04:47] VITALS: BP 128/71; PULSE 76; RESP 16; TEMP 36.1; O2SAT 97
[2023-12-12 10:52] VITALS: BP 121/78; PULSE 70; RESP 18; TEMP 36.8; O2SAT 97
--- NOTE | 2023-12-12 11:53 | PCM.DC ---
Discharge Instructions Diet Discharge Diet: No restrictions Activity Discharge Activity: May Not Drive, Use Crutches and - (no weight bearing right foot) Weight Bearing Status: No weight bearing (right foot) Follow Up Care Test Results: Test results from this visit will be discussed in further detail at your follow-up appointment, if applicable. Discharge Plan Admission Admit Date/Time: 12/10/23 09:20 Primary Reason for Your Visit: crush injury right foot, fractured toes Attending Provider: Hiram Gonsalez Primary Care Provider: Abhijeet Martinez Consulting Providers: Annette Owens; Victor Hugo Bush; Carlos Ramos; Brianna Alvarado; Nadja Gilbert NP; Destini Jenkins; Maldonado Irwin; Deborah Wong; Deborah Lao Instructions Patient Instructions: Post-Op Tips: Foot Additional Instructions / Restrictions: maintain nonweightbearing to right foot assisted by surgical shoe and crutches keep dressing clean, dry and intact to right lower extremity until follow up ice behind right knee 3 times per day for 15 minutes elevate right lower extremity above level of heart at rest take prescriptions as directed follow up in next 1-2 days for repeat wound evaluation, call for appointment contact our office with any concerns for strikethrough, signs/symptoms of infection or if the dressing gets wet You may take Faby-Colace ([id number]) daily as needed for constipation while you are on narcotics for pain Discharge Orders/Prescriptions Prescriptions: New oxycodone 5 mg tablet 5 mg PO Q4H PRN (Reason: pain) 7 Days Qty: 42 0RF ibuprofen 800 mg tablet 800 mg PO Q8H Qty: 30 0RF acetaminophen 500 mg capsule 500 mg PO Q6H PRN (Reason: pain) Qty: 30 0RF acetaminophen 500 mg Tablet 1,000 mg PO Q8 Qty: 0 0RF oxycodone 5 mg Tablet 10 - 15 mg PO Q4H PRN PRN (Reason: Pain Score 4-10) 5 Days Qty: 65 0RF Continued multivitamin [Daily Multi-Vitamin] Tablet 1 tab PO DAILY Discontinued amoxicillin-pot clavulanate 875-125 mg tablet 1 tab PO Q12.TCU Referrals / Follow Up: Abhijeet Martinez MD [Primary Care Provider] - Hiram Gonsalez DPM [Med Staff - Active Staff] - See Referral Note (call for appointment for this Wednesday or Wednesday) Disposition Disposition (needs filled in before D/C Order can be placed): Home, Self Care
--- NOTE | 2023-12-12 12:03 | PN.HOSP_ITS ---
Reason for Visit Reason for Visit: Diagnoses Non-pressure chronic ulcer of other part of right foot with necrosis of bone (12/10/23) Displaced unspecified fracture of right great toe, initial encounter for open fracture (12/10/23) Displaced fracture of distal phalanx of right great toe, initial encounter for open fracture (12/10/23) Displaced unspecified fracture of left lesser toe(s), initial encounter for closed fracture (12/10/23) Displaced fracture of proximal phalanx of right lesser toe(s), initial encounter for closed fracture (12/10/23) Displaced fracture of proximal phalanx of left lesser toe(s), initial encounter for closed fracture (12/10/23) Crushing injury of right foot, initial encounter (12/10/23) Subjective Subjective Patient was seen and examined today, I talked with his potato inspector by phone today (Dr. Gonsalez) and it was okay for the patient to be discharged home today with follow-up this week in [facility] office. Patient's antibiotic prescription that was sent in by Dr. Gonsalez was canceled by myself and I sent another 1 electronically for a higher dose of oxycodone-patient is taking 15 mg every 4 hours here as needed for pain and it has been holding him, he has not required any IV Dilaudid. Objective Data Objective Data Vital Signs: Vital Signs Temp Pulse Resp BP Pulse Ox O2 Del Method 98.2 F 70 18 121/78 H 97 Room Air 12/12/23 10:52 12/12/23 10:52 12/12/23 10:52 12/12/23 10:52 12/12/23 10:52 12/12/23 10:52 Oxygen Delivery Method Room Air Weight: 104.326 kg Body Mass Index (BMI) 34.0 Intake & Output: Intake and Output for Last 24 Hours 12/10/23 12/11/23 12/12/23 23:59 23:59 23:59 Intake Total 1642.75 / 1754.75 448 / 448 224 / 224 Output Total 600 / 600 800 / 800 Balance 1042.75 / 1154.75 -352 / -352 224 / 224 Lab / Micro Data 12/10/23 07:56 12/10/23 07:56 Micro: Microbiology 12/10/23 13:19 Wound - Toe Gram Stain - Final 12/10/23 13:19 Wound - Toe Wound Culture - Preliminary Staphylococcus species Staphylococcus species#2 Physical Exam Narrative alert, oriented x3, no apparent distress, average body habitus and healthy appearing General Appearance: cooperative, well kempt and well developed Orientation / Consciousness: awake, oriented to person, oriented to place and oriented to time HEENT normocephalic and moist oral mucous membranes Eyes PERRL, EOMs intact bilaterally and conjunctivae normal Neck supple, no JVD, thyroid normal and no carotid bruits General: trachea midline Resp normal respiratory effort and clear to auscultation bilaterally Auscultation: Negative for rales, rhonchi or wheezes Cardio regular rate, regular rhythm, no murmurs, no rub and no gallops GI normal to inspection, nondistended, normoactive bowel sounds, soft to palpation, non-tender and non-distended Extremity Extremity Narrative: Right lower extremity is wrapped with surgical dressing and has a splint in place Neuro oriented x3, CN's II-XII intact bilaterally, no focal motor deficits and no sensory deficits noted Sensorium / Orientation: awake and alert Speech: speech normal Psych affect normal Assessment & Plan Assessment/Plan (1) Crushing injury of right foot, initial encounter: (2) Closed displaced fracture of lesser toe of right foot: QUALIFIERS: Encounter type: initial encounter Phalanx: proximal Qualified Code(s): S92.511A - Displaced fracture of proximal phalanx of right lesser toe(s), initial encounter for closed fracture (3) Open fracture of distal phalanx of right great toe: QUALIFIERS: Encounter type: initial encounter Fracture alignment: displaced Qualified Code(s): S92.421B - Displaced fracture of distal phalanx of right great toe, initial encounter for open fracture PLAN: Plan 1. Crush injury of the right foot resulting in fracture of the great toe, second toe, and little toe-care per podiatry, patient appears stable for discharge today, patient is to follow-up Wednesday or Wednesday in the office per Dr. Gonsalez #2 chronic arthritis-requiring no treatment #3 chronic migraines-patient is on no medications #4 uncontrolled pain secondary to #1-patient's pain medications are controlling his pain currently Total clinical time spent by myself addressing patient's medical issues, reviewing all of his data, and collaborating with patient's care team: 35 minutes Charges/Coding Visit Charges Inpatient E&M: 49062 Subs Hosp L2
--- NOTE | 2023-12-13 12:57 | CASEMGMT ---
Addendum entered by Shahbaz De La Paz 12/13/23 13:17: The PA was approved. TC to the pt at this time and notified the pt that he can now fill this Rx and that it will be covered. Pt states that he is content with this and denies further questions or concerns. Original Note: PA has been submitted through CoverMyMeds for the Oxycodone Rx.
== END 2023-12-12 12:42 | disposition home or self-care (01) | DRG 505 ==
LOC: ED 08:58 → MS3 09:28
PROVIDERS: Admitting Provider Podiatrist; Emergency Provider Emergency Medicine; PCP Family Medicine; Visit Provider Podiatrist
PROC: 0QSQ04Z Reposition Right Toe Phalanx with Internal Fixation Device, Open Approach (ICD-10-PCS; CPT 28485; principal; 2023-12-10 10:45)
DX: S92.421B Displaced fracture of distal phalanx of right great toe, initial encounter for open fracture (principal); L97.514 Non-pressure chronic ulcer of other part of right foot with necrosis of bone; S92.511A Displaced fracture of proximal phalanx of right lesser toe(s), initial encounter for closed fracture; S97.81XA Crushing injury of right foot, initial encounter; W22.8XXA Striking against or struck by other objects, initial encounter; Y99.0 Civilian activity done for income or pay
CPT/HCPCS: 73630; 73660; 76000; 80048; 85025; 87070; 87075; 87077; 87186; 87205; 90715; 93005; 94668; 97162; 97165; 99285; J7030; J7120; A4216; J0295; J2405

== ENCOUNTER → 2023-12-17 | Outpatient (CLI) | payer OTHER, SELFPAY ==
--- NOTE | 2023-12-17 13:03 | VDLE_ITS ---
Reason For Study: Swelling BLE RIGHT LEFT GSV is normal. GSV is normal. CFV is compressible, spontaneous, phasic, CFV is compressible, spontaneous, phasic, competent and demonstrates normal competent, and demonstrates normal augmentation. augmentation. FV is compressible, spontaneous, phasic, FV is compressible, spontaneous, phasic, competent and demonstrates normal competent and demonstrates normal augmentation. augmentation. POP V is compressible, spontaneous, phasic, POP V is compressible, spontaneous, phasic, competent and demonstrates normal competent and demonstrates normal augmentation. augmentation. T/P Trunk is compressible. T/P Trunk is compressible. PTV is compressible. PTV is compressible. RT PerV is compressible. LT PerV is compressible. Procedure This is a venous duplex using B-mode, color flow and spectral Doppler. Exam performed in department. A preliminary report was called and/or faxed to Dr. Gonsalez. VL/Venous Duplex US - Carlos Extrem Interpretation Summary Deep veins of the lower extremities are bilaterally patent and compressible seg mentally. There is no evidence of deep vein thrombosis on either side. Valvular competence appears in tact within the proximal deep venous systems bilaterally. The great saphenous veins appear bila terally patent and compressible segmentally. Ordering Physician: Hiram Gonsalez Referring Physician: Abhijeet Martinez Performed By: Lindsey Vázquez, ROSENDO, RVT
== END | disposition home or self-care (01) ==
PROVIDERS: PCP Family Medicine; Referring Provider Podiatrist; Visit Provider Podiatrist
DX: I82.462 Acute embolism and thrombosis of left calf muscular vein (principal)
CPT/HCPCS: 93970

== ENCOUNTER 2023-12-23 17:03 | Inpatient (IN) | payer OTHER, SELFPAY ==
--- NOTE | 2023-12-23 17:13 | HP.PCM_ITS ---
HPI - General General Date of Admission: 12/23/23 HPI Narrative CASPER GONZALEZ, is a 52 M who presented to my outpatient clinic with worsening right foot pain with increased draiange and malodor. Patient suffered a severe crush injury to his right foot on 12/10/23 requiring open fracture debridement and toe pinning. Patient has been seen in my office 3 times since that visit. The patient noticed icnreased pain and drainage 3 days prior to todays visit, changed the dressing and re-dressed the site. Patient denies any constitutional symptoms. Patient notes significant pain at rest. [facility] Medical History Wears glasses History of steroid therapy Non-smoker Left wrist pain Migraines Arthritis Seasonal allergies Home Medications ?Medication ?Instructions ?Recorded ?Last Taken ?Type multivitamin (Daily Multi-Vitamin 1 tab PO DAILY 09/15/23 Unknown History tablet) acetaminophen 500 mg capsule 500 mg PO Q6H PRN pain #30 caps 12/12/23 Unknown Rx acetaminophen 500 mg tablet 1,000 mg (2 x 500 mg) PO Q8 #0 tabs 12/12/23 Unknown Rx ibuprofen 800 mg tablet 800 mg PO Q8H #30 tabs 12/12/23 Unknown Rx oxycodone 5 mg tablet 5 mg PO Q4H PRN pain 7 days #42 12/12/23 Unknown Rx tabs oxycodone 5 mg tablet 10 - 15 mg (2 - 3 x 5 mg) PO Q4H 12/12/23 Unknown Rx PRN PRN Pain Score 4-10 5 days #65 tabs Allergy/AdvReac Type Severity Reaction Status Date / Time No Known Allergies Allergy Verified 09/22/23 12:52 Family History Father Heart disease Hypertension Diabetes Mother Heart disease Surgical History H/O removal of cyst H/O sinus surgery Social History household members: spouse current occupational status: employed Smoking Status: Never smoker alcohol intake: never substance use type: does not use ROS Constitutional Constitutional: Denies fatigue, fever(s) or frequent falls Eyes Eyes: Denies change in eye color, change in vision or foreign body ENT HEENT: Denies ear discharge, ear pain or mucositis Cardiovascular Cardiovascular: Denies bluish discoloration of hand/feet, chest pain or dyspnea on exertion Respiratory/Chest Respiratory/Chest: Denies difficulty clearing secretions, dry cough or non-rest sleep EDS Gastrointestinal Gastrointestinal: Denies chewing difficulty, coffee ground emesis or hematoch ezia Genitourinary Genitourinary: Denies contractions, difficulty urinating or genital pain Musculoskeletal Musculoskeletal: Denies joint stiffness, joint swelling or tingling Physical Exam Narrative Diminished pulses right foot due to edema and wound formation. Ischemic changes to right 1st, 2nd and 3rd toe. loss of sensation to right 1st, 2nd and 3rd toe diffuse necrosis involving the tip of the right hallux, entire 2nd and 3rd toe with tamra purulence, malodor and periwound erythema, edema and warmth Assessment & Plan Assessment/Plan (1) Closed displaced fracture of lesser toe of right foot: QUALIFIERS: Encounter type: initial encounter Phalanx: proximal Qualified Code(s): S92.511A - Displaced fracture of proximal phalanx of right lesser toe(s), initial encounter for closed fracture PLAN: Exam performed radiogrpahs reviewed in office cultures taken in office patient started on vanc/zosyn dressed with betadine/dsd - no compression arterial studies ordered internal medicine and infectious disease consulted plan for right 1st, 2nd and 3rd toe amputation tomorrow 12/24/2023 will follow closely (2) Open fracture of distal phalanx of right great toe: QUALIFIERS: Encounter type: initial encounter Fracture alignment: displaced Qualified Code(s): S92.421B - Displaced fracture of distal phalanx of right great toe, initial encounter for open fracture (3) Non-pressure chronic ulcer of other part of right foot with necrosis of bone: (4) Osteomyelitis of foot, right, acute:
[2023-12-23 17:40] VITALS: BMI 32.3
[2023-12-23 17:52] LABS: Absolute Neutrophil Count 7.8 X10^3/uL (2.0-7.7); Basophil# 0.04 X10^3/uL; Basophil% 0.4 % (0-1); Hematocrit 42.8 % (40-54); Hemoglobin 14.5 g/dL (13.0-16.5); Lymphocyte % 11.2 % (19-41); Mean Corp Hgb Conc 33.9 g/dL (32-36); Mean Corpuscular Hgb 29.8 pg (27.0-32.0); Mean Corpuscular Volume 88.1 fL (80-94); Mean Platelet Vol. 9.9 fl (6.2-12.0); Monocyte# 0.69 X10^3/uL; NRBC Flagged by Analyzer 0 % (0-5); Neutrophil # 7.77 X10^3/uL (2.7-7.7); Platelet Count 243 K/mm3 (150-450); RBC Distribution Width CV 11.8 % (11.6-14.6); RBC Distribution Width SD 37.8 fl (35.1-43.9); Red Blood Count 4.86 M/mm3 (4.6-6.2); White Blood Count 9.8 K/mm3 (4.4-11.0)
[2023-12-23 17:53] VITALS: BP 146/82; PULSE 73; RESP 20; TEMP 37.1; O2SAT 96
[2023-12-23 18:15] LABS: ALB/GLOB Ratio 0.8 RATIO (0.9-2.4); AST(SGOT) 30 U/L (15-37); Alanine Aminotransfer ALT/SGPT 66 U/L (16-61); Albumin, Serum 3.4 g/dL (3.2-5.0); Alkaline Phosphatase 90 U/L (45-117); Anion Gap 5 (5-15); BUN 13 mg/dL (7-18); BUN/Creat Ratio 14.1 RATIO (10-20); Calcium,Total 9.4 mg/dL (8.5-10.1); Chloride 108 mmol/L (98-107); Creatinine, Serum 0.92 mg/dL (0.70-1.30); EST Glomerular Filtration Rate 91 mL/min (>60); Est Glom Filt Rate - Afr Amer 110 mL/min (>60); Estimated Creatinine Clearance 109.14 ml/min; Globulin 4.2 g/dL (2.2-4.2); Glucose 95 mg/dL (74-106); Potassium 3.8 mmol/L (3.5-5.1); Protein, Total 7.6 g/dL (6.4-8.2); Sodium Level 139 mmol/L (136-145)
--- NOTE | 2023-12-23 18:15 | PCM.PN.HOSP ---
Reason for Visit Reason for Visit: Diagnoses Non-pressure chronic ulcer of other part of right foot with necrosis of bone (12/23/23) Other acute osteomyelitis, right ankle and foot (12/23/23) Displaced fracture of distal phalanx of right great toe, initial encounter for open fracture (12/23/23) Displaced fracture of proximal phalanx of right lesser toe(s), initial encounter for closed fracture (12/23/23) Subjective Subjective Rodrigo Stewart is a 52-year-old male with history of migraines and arthritis who presented to [facility] 12/23/2023 as a direct admit from podiatry due to worsening right foot pain with increased drainage and malodor. Suffered severe crush injury to right foot 12/10/2023 requiring open fracture debridement and toe pinning and has been seen 3 times in the office since then. Increasing pain and drainage for 3 days prior to today's outpatient visit so patient direct admitted for right first, second, third toe amputations 12/24/2023 with podiatry. Hospitalist consulted for medical management. Patient evaluated at bedside, beginning to have some pain in his right big toe but ROS uribe negative otherwise Objective Data Objective Data Vital Signs: Vital Signs Temp Pulse Resp BP Pulse Ox O2 Del Method 98.7 F 73 20 H 146/82 H 96 Room Air 12/23/23 17:53 12/23/23 17:53 12/23/23 17:53 12/23/23 17:53 12/23/23 17:53 12/23/23 17:53 Oxygen Delivery Method Room Air Weight: 99.337 kg Body Mass Index (BMI) 32.3 Lab / Micro Data 12/23/23 17:37 12/23/23 17:37 Labs: Laboratory Results - last 24 hr 12/23/23 17:37: WBC 9.8, RBC 4.86, Hgb 14.5, Hct 42.8, MCV 88.1, MCH 29.8, MCHC 33.9, RDW Std Deviation 37.8, RDW Coeff of Gianni 11.8, Plt Count 243, MPV 9.9, Immature Gran % (Auto) 0.400, Neut % (Auto) 79.0 H, Lymph % (Auto) 11.2 L, Ellis % (Auto) 7.0, Eos % (Auto) 2.0, Baso % (Auto) 0.4, Absolute Neuts (auto) 7.8 H, Absolute Lymphs (auto) 1.10, Nucleated RBC % 0, Sodium 139, Potassium 3.8, Chloride 108 H, Carbon Dioxide 26.0, Anion Gap 5, BUN 13, Creatinine 0.92, Estim Creat Clear Calc 109.14, Est GFR (MDRD) Af Amer 110, Est GFR (MDRD) Non-Af 91, BUN/Creatinine Ratio 14.1, Glucose 95, Calcium 9.4, Total Bilirubin 0.50, AST 30, ALT 66 H, Alkaline Phosphatase 90, Total Protein 7.6, Albumin 3.4, Globulin 4.2, Albumin/Globulin Ratio 0.8 L Physical Exam Narrative General: Alert, oriented, no apparent distress HEENT: Atraumatic, normocephalic Eyes: Anicteric, normal conjunctiva, extraocular movements grossly intact Neck: Supple Respiratory: Clear to auscultation bilaterally, normal respiratory effort Cardiovascular: Regular rate GI: Soft, nontender, nondistended Extremities: No edema Musculoskeletal: Moving all extremities Neuro: No overt focal neurological deficits Skin: No rashes appreciated but right foot is wrapped at present Psych: Cooperative Assessment & Plan Assessment/Plan (1) Closed displaced fracture of lesser toe of right foot: QUALIFIERS: Encounter type: initial encounter Phalanx: proximal Qualified Code(s): S92.511A - Displaced fracture of proximal phalanx of right lesser toe(s), initial encounter for closed fracture PLAN: Plan # Recent fracture of right foot now with concern for infection -Cultures obtained in podiatry office -Patient started on vancomycin and Zosyn -Arterial studies ordered by podiatry -Infectious disease consulted -Patient for right first, second, third toe amputation 12/24/2023 -Pain management per primary #Medical evaluation -Patient denies any medical history aside from the current right foot injury and swelling -Denies any smoking, alcohol, drug use -Lab work overall without significant abnormalities but does have noted white shift on CBC with a white blood cell count elevated, may be early sign of infection as above -Blood pressure 146/82 otherwise vitals normal, this may be due to pain, patient with scheduled and as needed pain medication #DVT ppx: At the discretion of surgeon Lindsey Castro MD Charges/Coding Visit Charges Office Visits / Consults: [id number] OP Consult L1
[2023-12-23] MEDS: Morphine 4 MG/ML Syringe IV ×2 (18:49→23:23)
[2023-12-23] MEDS: oxyCODONE 5 MG Tablet 10 MG PO (19:46)
[2023-12-23] MEDS: Vancomycin HCl 1,500 MG in 0.9% Normal Saline (500mL Bag) 500 ML 250 MG IV (20:02)
[2023-12-23] MEDS: Piperacil/Tazobactam 3.375 GM in 0.9% Normal Saline (50mL MB+) 50 ML IV (20:04)
[2023-12-23] MEDS: Ibuprofen 400 MG Tablet 800 MG PO (20:06)
[2023-12-23] MEDS: 0.9% Saline Lock 10 ML Syringe IV (20:06)
[2023-12-23] MEDS: Acetaminophen 325 MG Tablet 650 MG PO (20:08)
[2023-12-23 20:16] VITALS: BP 148/82; PULSE 61; RESP 18; TEMP 36.6; O2SAT 95
--- NOTE | 2023-12-23 20:54 | PCM.RX.CS ---
Consult Antibiotic Management Pharmacy has been consulted to manage selected antibiotic: Vancomycin Type of Intervention Type of Consult: New start Suspected Infection Suspected Infection: Skin/Soft tissue and Osteomyelitis Prior Doses of Antibiotics Prior Doses of Antibiotics Received/Current Regimen: Vancomycin 1500 mg IV x 1 given 12/23/23 @ 2001, patient is also on piperacillin/tazobactam. Labs Labs: Sodium 139 mmol/L (136-145) 12/23/23 17:37 Potassium 3.8 mmol/L (3.5-5.1) 12/23/23 17:37 Chloride 108 mmol/L (98-107) H 12/23/23 17:37 Carbon Dioxide 26.0 mmol/L (21.0-32.0) 12/23/23 17:37 Anion Gap 5 (5-15) 12/23/23 17:37 BUN 13 mg/dL (7-18) 12/23/23 17:37 Creatinine 0.92 mg/dL (0.70-1.30) 12/23/23 17:37 Est GFR (MDRD) Af Amer 110 mL/min (>60) 12/23/23 17:37 Est GFR (MDRD) Non-Af 91 mL/min (>60) 12/23/23 17:37 BUN/Creatinine Ratio 14.1 RATIO (10-20) 12/23/23 17:37 Glucose 95 mg/dL (74-106) 12/23/23 17:37 Dosing Weight Weight used for dosin kg Estimated Creatinine Clearance Estimated Creatinine Clearance: ~109 Goal Trough Goal Trough: 15-20 mcg/mL Pharmacy Plan for Drug Dosing Pharmacy Plan for Drug Dosing: Vancomycin 1500 mg IV x1, followed by 1250 mg Q8H Pharmacy Service will continue to monitor and adjust dosing as required. Follow-Up Labs Follow-Up Labs: Trough: Vancomycin Date/Time Labs Ordered Labs to be done on [date and time ordered]: 12/24/23 @ 1930
[2023-12-24] VITALS (13 sets, daily range): BP systolic 106–138; BP diastolic 57–88; PULSE 62–102; RESP 16–98; TEMP 36.4–36.9; O2SAT 16–99; BMI 32.3
[2023-12-24] MEDS: Acetaminophen 325 MG Tablet 650 MG PO (02:54)
[2023-12-24] MEDS: oxyCODONE 5 MG Tablet 10 MG PO ×2 (02:55→21:23)
[2023-12-24] MEDS: Ibuprofen 400 MG Tablet 800 MG PO ×2 (04:42→21:23)
[2023-12-24] MEDS: Piperacil/Tazobactam 3.375 GM in 0.9% Normal Saline (50mL MB+) 50 ML IV ×3 (04:42→21:23)
[2023-12-24] MEDS: Vancomycin HCl 1,250 MG in 0.9% Normal Saline (250mL Bag) 250 ML 167 MG IV ×2 (04:42→19:08)
[2023-12-24 05:06] LABS: Absolute Lymphocyte Count 1.37 X10^3/uL (0.83-4.51); Absolute Neutrophil Count 6.4 X10^3/uL (2.0-7.7); Basophil# 0.04 X10^3/uL; Basophil% 0.4 % (0-1); Eosinophil# 0.33 X10^3/uL; Eosinophils% 3.7 % (0-5); Hematocrit 39.9 % (40-54); Hemoglobin 13.6 g/dL (13.0-16.5); Lymphocyte # 1.37 X10^3/ul (0.83-4.51); Lymphocyte % 15.3 % (19-41); Mean Corp Hgb Conc 34.1 g/dL (32-36); Mean Corpuscular Hgb 30.1 pg (27.0-32.0); Mean Corpuscular Volume 88.3 fL (80-94); Monocyte# 0.78 X10^3/uL; Monocyte% 8.7 % (0-10); NRBC Flagged by Analyzer 0 % (0-5); Neutrophil # 6.38 X10^3/uL (2.7-7.7); Neutrophil % 71.5 % (47-70); Platelet Count 207 K/mm3 (150-450); RBC Distribution Width CV 11.9 % (11.6-14.6); RBC Distribution Width SD 38.3 fl (35.1-43.9); Red Blood Count 4.52 M/mm3 (4.6-6.2); White Blood Count 8.9 K/mm3 (4.4-11.0)
[2023-12-24 05:32] LABS: Anion Gap 3 (5-15); BUN 12 mg/dL (7-18); BUN/Creat Ratio 14.2 RATIO (10-20); Calcium,Total 9.2 mg/dL (8.5-10.1); Chloride 108 mmol/L (98-107); Creatinine, Serum 0.85 mg/dL (0.70-1.30); EST Glomerular Filtration Rate 101 mL/min (>60); Est Glom Filt Rate - Afr Amer 122 mL/min (>60); Estimated Creatinine Clearance 118.13 ml/min; Glucose 96 mg/dL (74-106); Potassium 3.9 mmol/L (3.5-5.1); Sodium Level 138 mmol/L (136-145)
[2023-12-24] MEDS: Morphine 4 MG/ML Syringe IV ×2 (07:36→19:20)
--- NOTE | 2023-12-24 07:44 | ART_ITS ---
Reason For Study: Ulcer Procedure A bilateral lower extremity continuous wave Doppler with analog waveform analysis,segmental pressures,and ankle brachial indexes without exercise. Left Segmental Pressures Left brachial= 122mmHg. Left posterior tibial artery = 178mmHg. Left dorsalis pedis artery = 147mmHg. Left digit = 126 mmHg. The left dorsalis pedis waveforms are triphasic. The left posterior tibial artery waveforms are triphasic. Right Segmental Pressures Right brachial= 128mmHg. Right posterior tibial artery = 153mmHg. Right dorsalis pedis artery = 138mmHg. The right dorsalis pedis waveforms are triphasic. The right posterior tibial artery waveforms are triphasic. Indices The right ankle brachial index by the dorsalis pedis is 1.08. The right ankle brachial index by the posterior tibial artery is 1.20. The left ankle brachial index by the dorsalis pedis is 1.15. The left ankle brachial index by the posterior tibial artery is 1.39. The left digital-brachial index is 0.98. VL/Lower Ext Art Exam w/o Exercis Interpretation Summary Right JOVITA 1.2, normal. Doppler/PVR waveforms of the right leg normal at rest. Left JOVITA 1.39, normal. TBI and Doppler/PVR waveforms of the left leg normal at rest. Ordering Physician: Hiram Gonsalez Referring Physician: Abhijeet Martinez Performed By: Susana Smith RVT
--- NOTE | 2023-12-24 08:00 | BON_PTH ---
PATIENT: CASPER GONZALEZ LOC: MS3 U#:[id number] AGE/SX: 53/M ROOM: [facility] RE12/23/[address]: Dr. Hiram Gonsalez DPM : 1970 BED: 1 DIS: 12/28/2023 SPEC #: [id number] RECD: 12/24/23 17:11 STATUS: RJ SCOTTIE #: [id number] MENDEZ: 12/24/23 08:[address]: Hiram Gonsalez DEPT: SURGICAL PATHOLOGY RECD BY: Nereyda Niño ENTERED: 12/28/23 07:52 SP TYPE: Bone OTHR DR: MD Dr. Adria Haile MD Dr. Mark Tereletsky, DO Dr. Paige Pierce, MD Dr. Robert Leininger, MD Tissues: Toe, NOS Procedures: Decalcification bone/plaque Surgery Specimen Level IV HEADER OPERATION: Amputaiton toe, 1st, 2nd, 3rd, wound debridement, foot PRE-OP DIAGNOSIS: Non-pressure chronic ulcer of other part of right foot with necrosis of bone, osteomyelitis of foot, right, acute TISSUE SUBMITTED: First, second, third toes - right foot MICROSCOPIC DIAGNOSIS First, second, third toes, right foot, amputation: Ulceration, acute and chronic inflammation and granulation tissue reaction. Bone with acute osteomyelitis. SJ: 12/31/2023 MICROSCOPIC DESCRIPTION Slides are reviewed. GROSS DESCRIPTION Received in fixative is one container labeled with the patient's name and designated First, second and third toes- right foot. The specimen consists of three toes measuring 4.0 x 2.5 x 2.5cm, 2.2 x 2.0 x 2.0cm, and 2.5 x 2.0 x 1.5cm. Extensive area of ulceration is noted in all three toes. Also present in the container are detached pieces of soft tissue and skin with area of ulceration measuring in aggregate 4.0 x 2.5 x 1.0cm. Milk [employer] sections are submitted in six cassettes as follows: 1-ulcerated area of all three toes, 2- detached pieces of skin and soft tissue, 3- bone from the largest toe and detached smaller pieces of bone after decalcification, 4-6- section of the bone from other toes and detached pieces of bone after decalcification. CYNTHIA/ 12/28/2023 TC:2 CPT:17393,28898
--- NOTE | 2023-12-24 09:57 | PCM.CONS.GEN ---
Assessment & Plan Assessment/Plan (1) Osteomyelitis of foot, right, acute: PLAN: Wound cx pending. OR planned. Cont empiric vanc/zosyn Will follow, thank you HPI Consult Data Date of Consult: 12/24/23 HPI Narrative Reason for Consultation: foot infection HPI Narrative: CASPER GONZALEZ, is a 52 M with crush injury to R foot 12/09, taken to OR for open fracture debridement and pinning. Over past 3-4 days, worsening pain, redness, swelling, and drainage. Admitted here 12/22, plan is OR today. On vanc/zosyn. No fever, no n/v/d. Full ROS performed and neg except as noted above. [facility] Medical History Wears glasses History of steroid therapy Non-smoker Left wrist pain Migraines Arthritis Seasonal allergies Home Medications ?Medication ?Instructions ?Recorded ?Last Taken ?Type multivitamin (Daily Multi-Vitamin 1 tab PO DAILY supplement 09/15/23 Unknown History tablet) acetaminophen 500 mg capsule 500 mg PO Q6H PRN pain #30 caps 12/12/23 Unknown Rx acetaminophen 500 mg tablet 1,000 mg (2 x 500 mg) PO Q8 pain 12/12/23 Unknown Rx #0 tabs ibuprofen 800 mg tablet 800 mg PO Q8H foot paipn #30 tabs 12/12/23 Unknown Rx oxycodone 5 mg tablet 5 mg PO Q4H PRN pain 7 days #42 12/12/23 Unknown Rx tabs oxycodone 5 mg tablet 10 - 15 mg (2 - 3 x 5 mg) PO Q4H 12/12/23 Unknown Rx PRN PRN Pain Score 4-10 5 days #65 tabs aspirin 81 mg capsule 162 mg PO DAILY preventive 12/23/23 Unknown History Allergy/AdvReac Type Severity Reaction Status Date / Time No Known Allergies Allergy Verified 09/22/23 12:52 Family History Father Heart disease Hypertension Diabetes Mother Heart disease Surgical History H/O removal of cyst H/O sinus surgery Social History household members: spouse current occupational status: employed Smoking Status: Never smoker alcohol intake: never substance use type: does not use Physical Exam Const alert, oriented x3 and no apparent distress General Appearance: cooperative HEENT normocephalic and head/scalp atraumatic Eyes PERRL and EOMs intact bilaterally Neck supple and No nodes Resp normal air movement and clear to auscultation bilaterally Cardio regular rate and regular rhythm GI soft to palpation, non-tender and non-distended Extremity General Extremity: Negative for edema Skin Skin Narrative: foot wrapped Neuro CN's II-XII intact bilaterally Lab / Micro Data Attestation: I reviewed the patient's lab results. 12/24/23 04:46 12/24/23 04:46 Labs: Laboratory Results - last 24 hr 12/23/23 17:37: WBC 9.8, RBC 4.86, Hgb 14.5, Hct 42.8, MCV 88.1, MCH 29.8, MCHC 33.9, RDW Std Deviation 37.8, RDW Coeff of Gianni 11.8, Plt Count 243, MPV 9.9, Immature Gran % (Auto) 0.400, Neut % (Auto) 79.0 H, Lymph % (Auto) 11.2 L, Parke % (Auto) 7.0, Eos % (Auto) 2.0, Baso % (Auto) 0.4, Absolute Neuts (auto) 7.8 H, Absolute Lymphs (auto) 1.10, Nucleated RBC % 0, Sodium 139, Potassium 3.8, Chloride 108 H, Carbon Dioxide 26.0, Anion Gap 5, BUN 13, Creatinine 0.92, Estim Creat Clear Calc 109.14, Est GFR (MDRD) Af Amer 110, Est GFR (MDRD) Non-Af 91, BUN/Creatinine Ratio 14.1, Glucose 95, Calcium 9.4, Total Bilirubin 0.50, AST 30, ALT 66 H, Alkaline Phosphatase 90, Total Protein 7.6, Albumin 3.4, Globulin 4.2, Albumin/Globulin Ratio 0.8 L 12/24/23 04:46: WBC 8.9, RBC 4.52 L, Hgb 13.6, Hct 39.9 L, MCV 88.3, MCH 30.1, MCHC 34.1, RDW Std Deviation 38.3, RDW Coeff of Gianni 11.9, Plt Count 207, MPV 10.0, Immature Gran % (Auto) 0.400, Neut % (Auto) 71.5 H, Lymph % (Auto) 15.3 L, Parke % (Auto) 8.7, Eos % (Auto) 3.7, Baso % (Auto) 0.4, Absolute Neuts (auto) 6.4, Absolute Lymphs (auto) 1.37, Nucleated RBC % 0, Sodium 138, Potassium 3.9, Chloride 108 H, Carbon Dioxide 27.0, Anion Gap 3 L, BUN 12, Creatinine 0.85, Estim Creat Clear Calc 118.13, Est GFR (MDRD) Af Amer 122, Est GFR (MDRD) Non-Af 101, BUN/Creatinine Ratio 14.2, Glucose 96, Calcium 9.2
--- NOTE | 2023-12-24 10:20 | CASEMGMT ---
NABILA ODELL Readmission Note Previous Admission: 12/10/23-12/12/23 Diagnosis: open fracture, multiple toe fx, crush injury DC Disposition: Home Current Admission: Admitted 12/23/23 Current Diagnosis: R foot infection On index admission, pt was non wt bearing on R foot and dc'd home with crutches and follow up with Dr. Gonsalez. NABILA ODELL into pt room, pt at bedside. Pt states he did see on the following Wednesday. Pt reports he was taking his medications as ordered. Pt did not have an antibiotic ordered. Pt has maintained his non wt bearing status with crutches. Pt to go to OR today for 1,2, and 3rd digit amputation of R foot. ID c/s. NABILA ODELL to follow recommendations. DC Plan: TBD pending surgery and ID recs
[2023-12-24] MEDS: 0.9% Normal Saline (1000mL) 1,000 ML 15 ML IV (10:56)
--- NOTE | 2023-12-24 11:47 | PCM.PRE.AN2 ---
ASA Classification* ASA Classification ASA Classification: 2 Assessment & Plan Anesthesia* Anesthesia Assessment Anesthesia Assessment: Discussed sedation and/or anesthesia options, risks, benefits, and alternatives with patient/parents/legal guardian/POA. Questions invited. The patient/parents/legal guardian/POA seems to understand and agrees to proceed with anesthesia plan. Reviewed the physical assessment, medical history, allergy history and patient home medications list prior to surgery/procedure/anesthetic and documented any changes. Performed airway and anesthesia risk assessments. Anesthesia Type Anesthesia Type: General History Source History Obtained from:: Patient and Chart Anesthesia Focused Assessment* Temperature: 98.1 F Pulse Rate: 70 Blood Pressure: 126/88 Respiratory Rate: 16 Pulse Ox: 98 Oxygen Delivery Method: Room Air Airway Assessment Mouth opens: >3 cm Mallampati Score: I Teeth Condition: Chipped/Broken Neck Range of motion (ROM): Full ROM Focused Labs Anesthesia Preop lab: CBC WBC 8.9 K/mm3 (4.4-11.0) 12/24/23 04:46 RBC 4.52 M/mm3 (4.6-6.2) L 12/24/23 04:46 Hgb 13.6 g/dL (13.0-16.5) 12/24/23 04:46 Hct 39.9 % (40-54) L 12/24/23 04:46 Plt Count 207 K/mm3 (150-450) 12/24/23 04:46 CHEMISTRY Potassium 3.9 mmol/L (3.5-5.1) 12/24/23 04:46 Sodium 138 mmol/L (136-145) 12/24/23 04:46 BUN 12 mg/dL (7-18) 12/24/23 04:46 Creatinine 0.85 mg/dL (0.70-1.30) 12/24/23 04:46 Glucose 96 mg/dL (74-106) 12/24/23 04:46 TSH 0.51 uIU/mL (0.358-3.74) 08/29/21 08:53 COAG Pre-Assessment Diagnosis/Proposed Procedure Planned Operative Procedure(s): Amputation of first second and third toes on the right foot with wound debridement. 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 When Was Last Pacemaker Check QUESTION #4 FULL TEXT: You/Your Family Experience fever (hyperthermia) with Anesthesia Last Oral Intake Last Oral intake: Last Oral Intake NPO since 00:00 12/24/23 09:49 Meds taken in AM with sips of No 12/24/23 09:49 water? Meds patient instructed to take am of surgery PONV PONV - infant nanny: PONV - infant nanny Female HX of Motion Sickness HX of N/V After Surgery Non-Smoker Duration of Surgery greater than 60 minutes Number of Risk Factors PONV Score Height & Weight Height & Weight: Anesthesia: Height & Weight Height 5 ft 9 in 12/24/23 09:49 Weight: 99.33 kg 12/24/23 09:49 Body Mass Index (BMI) 32.3 12/24/23 09:49 Respiratory Assessment Respiratory Assessment - infant nanny: Respiratory Tract Infection Hx - infant nanny Hx Respiratory Tract Infection No 12/24/23 01:29 STOP Sleep Apnea STOP Sleep Apnea - infant nanny: STOP Sleep Apnea - infant nanny Hx Hypertension No 12/23/23 17:44 Hx Sleep Apnea No 12/23/23 17:44 CPAP BIPAP Do you snore loudly (louder No 12/23/23 17:44 than talking or can be heard Do you often feel tired/ Yes 12/23/23 17:44 fatigued/ sleepy during daytime? Has anyone observed you stop No 12/23/23 17:44 breathing during sleep? STOP Results Negative 12/23/23 17:44 QUESTION #5 FULL TEXT : Do you snore loudly (louder than talking or can be heard through closed doors)? 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 confused, unrespo /Reproduction History /Reproductive History - infant nanny: /Reproductive Hx- infant nanny Hx Now Gestational Age (in weeks): EDC: Hx Hx Para Hx Section SAB No 09/15/23 13:01 Active Medications Active Medications: Current Medications Generic Name Dose Route Start Last Admin Trade Name Freq PRN Reason Stop Dose Admin Acetaminophen 650 mg 12/23/23 17:20 12/24/23 02:54 Acetaminophen 325 Mg Tablet PO 650 mg Q6H PRN PRN Administration Pain 1-10 or Fever Albuterol Sulfate 2.5 mg 12/23/23 18:19 Albuterol 2.5 Mg/3 Ml Vial.Neb. INHALATION Q2H PRN PRN SOB &/OR WHEEZING Piperacillin Sod/Tazobactam 50 mls @ 12.5 mls/hr 12/23/23 22:00 12/24/23 08:45 Sod 3.375 gm/ Sodium Chloride IV Infused Q8 RADHA Infusion Sodium Chloride 250 mls @ 15 mls/hr 12/23/23 17:43 IV .[id number] PRN Additional IVPB Infusion Sodium Chloride 250 mls @ 15 mls/hr 12/23/23 17:43 IV .[id number] PRN Saline Flush Vancomycin HCl 1,250 mg/ 275 mls @ 167 mls/hr 12/24/23 04:00 12/24/23 06:24 Sodium Chloride IV Infused Q8H RADHA Infusion Sodium Chloride 1,000 mls @ 15 mls/hr 12/24/23 10:55 12/24/23 10:56 IV 15 mls/hr .Q48H RADHA Administration Ibuprofen 800 mg 12/23/23 22:00 12/24/23 04:42 Ibuprofen 400 Mg Tablet PO 800 mg Q8 RADHA Administration Melatonin 3 mg 12/23/23 18:19 Melatonin 3 Mg Tablet PO QHS PRN PRN INSOMNIA Morphine Sulfate 4 mg 12/23/23 17:20 12/24/23 07:36 Morphine 4 Mg/Ml Syringe IV 4 mg Q4H PRN PRN Administration Pain Score 6-10 or Pre PT/OT Ondansetron HCl 4 mg 12/23/23 18:19 Ondansetron 4 Mg/2 Ml Vial IV Q8H PRN PRN NAUSEA/VOMITING Oxycodone HCl 10 mg 12/23/23 18:00 12/24/23 02:55 Oxycodone 5 Mg Tablet PO 10 mg Q4H PRN Administration Pain Score 1-10 Senna/Docusate Sodium 2 tablet 12/23/23 18:19 Senna/Docusate Sodium 1 Tablet PO BID PRN PRN Constipation Sodium Chloride 10 - 40 ml 12/23/23 17:43 12/23/23 20:06 0.9% Saline Lock 10 Ml Syringe IV 10 ml UD PRN Administration SALINE FLUSH Vancomycin Protocol 1 lab 12/24/23 17:30 Vancomycin Trough/Random Due 12/24/23 21:30 DAILY [facility] PFSH Medical History Wears glasses History of steroid therapy Non-smoker Left wrist pain Migraines Arthritis Seasonal allergies Home Medications ?Medication ?Instructions ?Recorded ?Last Taken ?Type multivitamin (Daily Multi-Vitamin 1 tab PO DAILY supplement 09/15/23 Unknown History tablet) acetaminophen 500 mg capsule 500 mg PO Q6H PRN pain #30 caps 12/12/23 Unknown Rx acetaminophen 500 mg tablet 1,000 mg (2 x 500 mg) PO Q8 pain 12/12/23 Unknown Rx #0 tabs ibuprofen 800 mg tablet 800 mg PO Q8H foot paipn #30 tabs 12/12/23 Unknown Rx oxycodone 5 mg tablet 5 mg PO Q4H PRN pain 7 days #42 12/12/23 Unknown Rx tabs oxycodone 5 mg tablet 10 - 15 mg (2 - 3 x 5 mg) PO Q4H 12/12/23 Unknown Rx PRN PRN Pain Score 4-10 5 days #65 tabs aspirin 81 mg capsule 162 mg PO DAILY preventive 12/23/23 Unknown History Allergy/AdvReac Type Severity Reaction Status Date / Time No Known Allergies Allergy Verified 09/22/23 12:52 Family History Father Heart disease Hypertension Diabetes Mother Heart disease Surgical History H/O removal of cyst H/O sinus surgery Social History household members: spouse current occupational status: employed Smoking Status: Never smoker alcohol intake: never substance use type: does not use Review of Systems (Anesthesia) ROS Narrative System reviewed and no additional complaints, except as documented.
--- NOTE | 2023-12-24 14:30 | RAD_ITS ---
CLINICAL HISTORY: TOE AMPUTATION Date: 12/24/2023 2:30 PM Date of : 1970 Images assigned to this order were provided in conjunction with a surgical procedure performed in the operating room/procedural suite. Please see operative report for details. Fluoroscopic images: 3 images acquired, one image saved Fluoroscopic time: 5 seconds Cumulative dose: 0.4907, mGym2; 0.0292; mGy Imaging documents amputation of the 1st 2nd and 3rd digits. Refer to procedural note for complete description. Impressions: 1. Fluoroscopic guidance for surgical planning and confirmation Electronically Signed: Stephen Seaman MD at 1:01 EDT , RAD/Foot 2 Views IMPRESSION: undefined
[2023-12-24] MEDS: Lactated Ringers 1,000 ML 15 ML IV (15:20)
[2023-12-24] MEDS: Bupivacaine Mpf 0.5% 30 ML VIAL (15:57)
--- NOTE | 2023-12-24 16:15 | PCM.OPRPT ---
Problems Associated Problem List Diagnoses (1) Osteomyelitis of foot, right, acute: Report of Operation Date of Procedure: 12/24/23 Pre-Operative Diagnosis: 1) Right 1st, 2nd and 3rd toe osteomyelitis 2) Right dorsal foot wound, full thickness Post-Operative Diagnosis: same Surgery/Procedure Performed:: Partial amputation right first toe Complete amputation right second toe Complete amputation right third toe Debridement dorsal right midfoot wound Description of Surgical Findings:: Patient suffered a traumatic injury in which a lift gate fell on his foot on 12/10/2023. Patient was seen in the ER due to concern for open fracture and a limited injury to distal toes at the time patient was admitted and taken to surgery for flushing of the open fracture with percutaneous pinning. Patient was seen 3 times postoperatively on the third time patient demonstrated increased necrosis with malodor erythema and edema extending into the midfoot. There is diffuse necrosis involving the distal tuft of the right hallux. The entire second and third toes were necrotic as well as additional necrosis to the dorsal midfoot. Concern for dry gangrene turned into wet gangrene patient was admitted for IV antibiotics and digital amputation as well as wound debridement. Surgeon: Hiram Gonsalez scuba diving instructor: None (flory beverage) Type of Anesthesia: General Special Medications: 30 cc half percent Marcaine plain Specimen's removed: Right first second and third toes for pathology and microbiology Drains: None Estimated Blood Loss (mL): <30cc Description of Procedure: Patient brought back the operating placed comfortably in supine position on operating room table. Patient induced under general anesthesia. Well-padded right ankle tourniquet was applied this was not used throughout the case. Right lower extremity was positioned. Right lower extremity was scrubbed prepped draped using typical aseptic fashion. Once cleared by anesthesia procedure #1 was started. Procedure #1: Partial right hallux amputation Using a fishmouth incision planning excising the entire necrotic area of the distal tuft of the hallux 15 blade was used to make the incision down to the level of bone initially the toe was disarticulated at the interphalangeal joint additional bone resection was performed at the proximal phalanx using bone cutting forceps to allow for adequate soft tissue closure under minimal tension. Additional soft tissue debridement was performed to remove any nonviable tissue. Site was examined normal healthy bleeding tissue was noted at the hallux amputation site. Site was flushed with copious amounts normal sterile saline. Right hallux was passed the back table. Procedure #2/3: Complete amputation right second and third toe right second third toe were noted to be completely necrotic the margins of the necrosis were marked with a marking pen and incision was made full-thickness through the skin the toes were disarticulated at the level of the metatarsal phalangeal joints's were passed the back table for further examination. Due to extensive necrosis extending from the second interspace to the dorsal forefoot that was debrided out with initial incision incisional closure cannot be performed at this time. Additional soft tissue debridement was performed to remove any nonviable tissue. Procedure #4: Excisional debridement right dorsal midfoot wound down to level of tendon full-thickness area of necrosis to dorsal midfoot noted measuring 2.0 x 4.0 cm. Postdebridement demonstrated wound down to level of tendon measuring 2.5 x 4.2 x 1.0 cm. Examination of the wound demonstrated intact underlying extensor tendons extending to the second and third rays as well as clean granular bleeding to all other sites. No residual residual areas of necrosis noted postdebridement. Debridement was performed with pickups and a 15 blade. All sites were flushed with copious amounts of normal sterile saline. The right second first and third toe wart and sent to microbiology for bone and tissue culture as well as pathology for further examination. Post lavage swab cultures were taken from all incisional sites. Skin closure was performed using simple interrupted 4-0 Prolene to the right hallux amputation site as well as the distal aspect of the second and third toe amputation sites. A 2 x 4 cm [employer] graft was applied to the wound bed at the level of the midfoot. Incisional sites were dressed with Betadine Adaptic. Wound sites dressed with Betadine soaked 4 x 4's overlying dry 4 x 4's ABD pads Kerlix and a light Matias bandage were dressed to the right foot. Patient was transferred to PACU vital signs stable vascular status intact to all digits for further monitoring prior to transfer back to floor. Patient tolerated procedure and anesthesia well apparent satisfactory condition. Patient will continue receiving IV antibiotics maintain nonweightbearing status we will follow the cultures and plan for a definitive wound closing procedure to allow for return to ambulatory function. This may include weekly local wound care with potential application of skin substitute grafts. No complications. Good healthy bleeding noted to soft tissue resection sites after removal of necrotic tissue. No evidence of deep traffic tracking abscess.
--- NOTE | 2023-12-24 16:32 | PCM.POST.ANE ---
Anesthesia: Postop Eval I Current Vital Signs Temperature: 98.1 F Pulse Rate: 93 Blood Pressure: 108/71 Respiratory Rate: 16 Pulse Ox: 96 Oxygen Delivery Method: Room Air Assessment Airway patent: Yes Spontaneous unlabored respirations: Yes Mental status: Awake and Calm nausea: No Vomiting: No Anesthesia Complication: No Fluid Hydration Crystalloid volume administer (ml): 1,300 Total IV fluid infused: 1,300 Progress Note Anesthesia document: Postop Eval 1 completed: Yes
--- NOTE | 2023-12-24 16:33 | POSTOPAN2_ITS ---
Anesthesia Postop Eval I Sum Postop Eval Completion status Anesthesia document: Postop Eval 1 completed: Yes Anesthesia Postop Eval I Summary Anesthesia Postop Eval I Summary: Anesthesia Postop Eval I: Assessment Summary Airway patent Yes 12/24/23 16:33 [email or web address] Spontaneous unlabored Yes 12/24/23 16:33 [email or web address] respirations Mental status Awake,Calm 12/24/23 16:33 [email or web address] nausea No 12/24/23 16:33 [email or web address] Vomiting No 12/24/23 16:33 [email or web address] Anesthesia Postop Eval I: Fluid Summary Crystalloid volume administer 1,300 12/24/23 16:33 [email or web address] (ml) Colloids volume administered ( ml) Blood Product volume administered (ml) Total IV fluid infused 1,300 12/24/23 16:33 [email or web address] Anesthesia Postop Eval I: Summary Notes Anesthesia Complication No 12/24/23 16:33 [email or web address] Anesthesia Complication Comment: Post-operative progress note Anesthesia: Postop Eval II Evaluation Mental status: Awake and Calm Pain Level: 0 nausea: No Vomiting: No Complications Anesthesia Complication: No
--- NOTE | 2023-12-24 16:33 | PCM.POSTANE2 ---
Anesthesia Postop Eval I Sum Postop Eval Completion status Anesthesia document: Postop Eval 1 completed: Yes Anesthesia Postop Eval I Summary Anesthesia Postop Eval I Summary: Anesthesia Postop Eval I: Assessment Summary Airway patent Yes 12/24/23 16:33 [email or web address] Spontaneous unlabored Yes 12/24/23 16:33 [email or web address] [email or web address] respirations Mental status Awake,Calm 12/24/23 16:33 [email or web address] [email or web address] nausea No 12/24/23 16:33 [email or web address] Vomiting No 12/24/23 16:33 [email or web address] [email or web address] Anesthesia Postop Eval I: Fluid Summary Crystalloid volume administer 1,300 12/24/23 16:33 [email or web address] (ml) Colloids volume administered ( ml) Blood Product volume administered (ml) Total IV fluid infused 1,300 12/24/23 16:33 [email or web address] Anesthesia Postop Eval I: Summary Notes Anesthesia Complication No 12/24/23 16:33 [email or web address] Anesthesia Complication Comment: Post-operative progress note Anesthesia: Postop Eval II Evaluation Mental status: Awake and Calm Pain Level: 0 nausea: No Vomiting: No Complications Anesthesia Complication: No
--- NOTE | 2023-12-24 17:24 | PCM.HOSP.N ---
Hospitalist Note Patient was not seen and examined by the hospitalist service today, he was out of his room for several hours due to surgery on his right foot. Patient will be seen again on 12/25/2023.
[2023-12-24] MEDS: Juven (unflavored) Packet 1 PACKET PO (21:23)
[2023-12-25 01:14] VITALS: BP 113/82; PULSE 92; RESP 18; TEMP 36.6; O2SAT 98
[2023-12-25] MEDS: 0.9% Normal Saline (250mL Bag) 250 ML 15 ML IV ×2 (01:21→20:04)
[2023-12-25] MEDS: Vancomycin HCl 1,250 MG in 0.9% Normal Saline (250mL Bag) 250 ML 167 MG IV (03:33)
[2023-12-25] MEDS: oxyCODONE 5 MG Tablet 10 MG PO ×4 (03:55→20:07)
[2023-12-25] MEDS: Acetaminophen 325 MG Tablet 650 MG PO ×3 (03:56→17:10)
[2023-12-25 03:58] VITALS: BP 119/80; PULSE 71; RESP 18; TEMP 36.4; O2SAT 98
[2023-12-25] MEDS: Piperacil/Tazobactam 3.375 GM in 0.9% Normal Saline (50mL MB+) 50 ML IV ×3 (05:57→22:41)
[2023-12-25] MEDS: Ibuprofen 400 MG Tablet 800 MG PO ×3 (05:57→22:41)
[2023-12-25 08:16] VITALS: BP 126/71; PULSE 69; RESP 18; TEMP 36.6; O2SAT 98
[2023-12-25] MEDS: Juven (unflavored) Packet 1 PACKET PO ×2 (10:55→17:07)
[2023-12-25 11:15] LABS: Vancomycin, Trough Level 20.2 ug/mL (5.0-15.0)
--- NOTE | 2023-12-25 11:33 | PCM.RX.CS ---
Consult Antibiotic Management Pharmacy has been consulted to manage selected antibiotic: Vancomycin Type of Intervention Type of Consult: Follow-up Labs Labs: Sodium 138 mmol/L (136-145) 12/24/23 04:46 Potassium 3.9 mmol/L (3.5-5.1) 12/24/23 04:46 Chloride 108 mmol/L (98-107) H 12/24/23 04:46 Carbon Dioxide 27.0 mmol/L (21.0-32.0) 12/24/23 04:46 Anion Gap 3 (5-15) L 12/24/23 04:46 BUN 12 mg/dL (7-18) 12/24/23 04:46 Creatinine 0.85 mg/dL (0.70-1.30) 12/24/23 04:46 Est GFR (MDRD) Af Amer 122 mL/min (>60) 12/24/23 04:46 Est GFR (MDRD) Non-Af 101 mL/min (>60) 12/24/23 04:46 BUN/Creatinine Ratio 14.2 RATIO (10-20) 12/24/23 04:46 Glucose 96 mg/dL (74-106) 12/24/23 04:46 Vancomycin Trough 20.2 ug/mL (5.0-15.0) H 12/25/23 10:35 Microbiology Microbiology: Microbiology 12/23/23 14:14 Ulcer, Decubitus - Right Foot Gram Stain - Final 12/23/23 14:14 Ulcer, Decubitus - Right Foot Wound Culture - Preliminary Mixed Gram Pos & Gram Neg Org Goal Trough Goal Trough: 15-20 mcg/mL Pharmacy Plan for Drug Dosing Pharmacy Plan for Drug Dosing: VANCOMYCIN LEVEL RECEIVED Current Vancomycin Dose: 1250mg IV q8h Number of Doses Received: 4 (initial + 3 scheduled) Vancomycin Level: 20.2 Hours Since Last Dose: 7hr Renal Function: 0.85 Renal Function Trend: stable Lab/Micro: WCx pending Vancomycin Plan/Comments: patient had a trough drawn which resulted in a value of 20.2 (goal 15-20). trough is just slightly above goal. Will hold vancomycin for 8hrs and change dose to 1000mg IV Q8hr to start 12/25/23 @2000 Pending Level: 12/26/23 @1930 Pharmacy Service will continue to monitor and adjust dosing as required.
[2023-12-25] MEDS: HYDROmorphone 0.5 MG/0.5 ML SYRINGE IV (11:34)
[2023-12-25] MEDS: Vancomycin Trough/Random Due 1 LAB MC ×2 (11:36→11:37)
--- NOTE | 2023-12-25 11:45 | PCM.PROGNOTE ---
Subjective Subjective 1 day postop. Pain significantly improved today. Denies constitutional symptoms. No issues overnight. Patient passing gas and voiding urine. Objective Data Objective Data Vital Signs: Vital Signs Temp Pulse Resp BP Pulse Ox O2 Del Method 97.9 F 69 18 126/71 H 98 Room Air 12/25/23 08:16 12/25/23 08:16 12/25/23 08:16 12/25/23 08:16 12/25/23 08:16 12/25/23 08:16 Oxygen Delivery Method Room Air Weight: 99.33 kg Body Mass Index (BMI) 32.3 Intake & Output: Intake and Output for Last 24 Hours 12/23/23 12/24/23 12/25/23 23:59 23:59 23:59 Intake Total 530 / 530 1792.5 / 2192.5 1275 / 1275 Output Total 1500 / 1500 Balance 530 / 530 1792.5 / 1592.5 -225 / -225 Lab / Micro Data 12/24/23 04:46 12/24/23 04:46 Labs: Laboratory Results - last 24 hr 12/24/23 16:20: Acid Fast Stain Cancelled, Miscellaneous Cytology Cancelled 12/25/23 10:35: Vancomycin Trough 20.2 H Micro: Microbiology 12/23/23 14:14 Ulcer, Decubitus - Right Foot Gram Stain - Final 12/23/23 14:14 Ulcer, Decubitus - Right Foot Wound Culture - Preliminary Mixed Gram Pos & Gram Neg Org Physical Exam Narrative Stable granular wounds to dorsal right forefoot Partial hallux amputation right foot noted with intact incision and sutures. Second and third toe right foot amputation noted with intact sutures and incision. Mild periwound erythema edema. Assessment & Plan Assessment/Plan (1) Osteomyelitis of foot, right, acute: PLAN: Exam performed. Continue vancomycin and Zosyn. In office cultures positive for gram-positive gram-negative species. Continue non weightbearing to right foot Dressing change redressed with Betadine soaked gauze to the wound sites as well as Betadine Adaptic to the incisional sites overlying dry sterile gauze Kerlix, specialist cast padding and Matias bandage applied gently. Will continue to follow patient daily. (2) Closed displaced fracture of lesser toe of right foot: QUALIFIERS: Encounter type: initial encounter Phalanx: proximal Qualified Code(s): S92.511A - Displaced fracture of proximal phalanx of right lesser toe(s), initial encounter for closed fracture (3) Non-pressure chronic ulcer of other part of right foot with necrosis of bone: (4) Closed displaced fracture of lesser toe of left foot: QUALIFIERS: Encounter type: initial encounter Phalanx: proximal Qualified Code(s): S92.512A - Displaced fracture of proximal phalanx of left lesser toe(s), initial encounter for closed fracture
--- NOTE | 2023-12-25 14:29 | PN.HOSP_ITS ---
Reason for Visit Reason for Visit: Diagnoses Non-pressure chronic ulcer of other part of right foot with necrosis of bone (12/23/23) Other acute osteomyelitis, right ankle and foot (12/23/23) Displaced fracture of distal phalanx of right great toe, initial encounter for open fracture (12/23/23) Displaced fracture of proximal phalanx of right lesser toe(s), initial encounter for closed fracture (12/23/23) Displaced fracture of proximal phalanx of left lesser toe(s), initial encounter for closed fracture (12/23/23) Subjective Subjective Patient was seen and examined today, I was present when Dr. Gonsalez change the patient's right foot dressing, Dr. Gonsalez felt that the surgery area looked good. Objective Data Objective Data Vital Signs: Vital Signs Temp Pulse Resp BP Pulse Ox O2 Del Method 97.9 F 69 18 126/71 H 98 Room Air 12/25/23 08:16 12/25/23 08:16 12/25/23 08:16 12/25/23 08:16 12/25/23 08:16 12/25/23 08:16 Oxygen Delivery Method Room Air Weight: 99.33 kg Body Mass Index (BMI) 32.3 Intake & Output: Intake and Output for Last 24 Hours 12/23/23 12/24/23 12/25/23 23:59 23:59 23:59 Intake Total 530 / 530 1792.5 / 2192.5 1275 / 1275 Output Total 1500 / 1500 Balance 530 / 530 1792.5 / 1592.5 -225 / -225 Lab / Micro Data 12/24/23 04:46 12/24/23 04:46 Labs: Laboratory Results - last 24 hr 12/24/23 16:20: Acid Fast Stain Cancelled, Miscellaneous Cytology Cancelled 12/25/23 10:35: Vancomycin Trough 20.2 H Micro: Microbiology 12/24/23 16:19 Wound Abcess - Aerobic & Anaerobic Swabs Wound Culture - Preliminary GNR Poss Pseudomonas sp GNR 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 Staphylococcus species 12/24/23 16:20 Tissue - Toe Wound Culture - Preliminary GNR Poss Pseudomonas sp GNR 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 Mixed Gram Positive Organisms 12/23/23 14:14 Ulcer, Decubitus - Right Foot Gram Stain - Final 12/23/23 14:14 Ulcer, Decubitus - Right Foot Wound Culture - Preliminary Staphylococcus aureus Gram negative leodan GNR Poss Pseudomonas sp GNR 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 Physical Exam Const alert, oriented x3, no apparent distress and healthy appearing General Appearance: cooperative, well kempt and well developed Orientation / Consciousness: awake, oriented to person, oriented to place and oriented to time HEENT normocephalic and moist oral mucous membranes Eyes PERRL, EOMs intact bilaterally and conjunctivae normal Neck supple, no JVD, thyroid normal and no carotid bruits General: trachea midline Resp normal respiratory effort and clear to auscultation bilaterally Auscultation: Negative for rales, rhonchi or wheezes Cardio regular rate, regular rhythm, no murmurs, no rub and no gallops GI normal to inspection, nondistended, normoactive bowel sounds, soft to palpation, non-tender and non-distended Skin Skin Narrative: Patient has a partial amputation of the right great toe along with total amputations of the second and third toes, there are open areas on the dorsum of the patient's right foot just proximal to the second and third rays Neuro oriented x3, CN's II-XII intact bilaterally, no focal motor deficits and no sensory deficits noted Sensorium / Orientation: awake and alert Speech: speech normal Psych affect normal Assessment & Plan Assessment/Plan (1) Osteomyelitis of foot, right, acute: PLAN: Plan 1. Osteomyelitis of the right foot-status post amputation of the second and third rays and partial amputation of the right great toe, postsurgical care per podiatry #2 chronic migraines-patient is not on any preventative treatment for migraines Total clinical time spent by myself addressing the patient's medical issues, reviewing all of his data, and collaborating with patient's care team: 25 minutes Charges/Coding Visit Charges Inpatient E&M: 94791 [facility] Hosp L1
[2023-12-25 17:13] VITALS: BP 125/81; PULSE 88; RESP 18; TEMP 36.6; O2SAT 99
[2023-12-25] MEDS: Vancomycin IV 1,000 MG/200 ML BAG 200 MG IV (20:03)
[2023-12-25 20:41] VITALS: BP 113/77; PULSE 79; RESP 18; TEMP 36.4; O2SAT 99
[2023-12-26 01:45] VITALS: BP 127/71; PULSE 62; RESP 18; TEMP 36.5; O2SAT 98
[2023-12-26] MEDS: oxyCODONE 5 MG Tablet 10 MG PO ×5 (02:00→21:38)
[2023-12-26] MEDS: Vancomycin IV 1,000 MG/200 ML BAG 200 MG IV ×3 (04:14→20:45)
[2023-12-26] MEDS: Piperacil/Tazobactam 3.375 GM in 0.9% Normal Saline (50mL MB+) 50 ML IV ×3 (05:24→21:39)
[2023-12-26] MEDS: Ibuprofen 400 MG Tablet 800 MG PO ×3 (05:24→21:39)
[2023-12-26] MEDS: Acetaminophen 325 MG Tablet 650 MG PO ×2 (08:10→17:05)
[2023-12-26] MEDS: Juven (unflavored) Packet 1 PACKET PO ×2 (08:11→17:05)
[2023-12-26] MEDS: 0.9% Normal Saline (250mL Bag) 250 ML 15 ML IV (10:56)
[2023-12-26] MEDS: 0.9% Saline Lock 10 ML Syringe IV (11:24)
[2023-12-26] MEDS: Morphine 4 MG/ML Syringe IV (11:24)
--- NOTE | 2023-12-26 11:49 | PN_ITS ---
Subjective Subjective 52 year-old male seen bedside. 2 days postop right foot first second third toe amputation with foot wound debridement. Patient's pain is significantly improved today. Denies constitutional symptoms. No changes overnight. Objective Data Objective Data Vital Signs: Vital Signs Temp Pulse Resp BP Pulse Ox O2 Del Method 97.7 F L 62 18 127/71 H 98 Room Air 12/26/23 01:45 12/26/23 01:45 12/26/23 01:45 12/26/23 01:45 12/26/23 01:45 12/26/23 01:45 Oxygen Delivery Method Room Air Weight: 99.33 kg Body Mass Index (BMI) 32.3 Intake & Output: Intake and Output for Last 24 Hours 12/24/23 12/25/23 12/26/23 23:59 23:59 23:59 Intake Total 1792.5 / 2192.5 2675 / 2975 1823 / 1823 Output Total 1500 / 1500 1000 / 1000 Balance 1792.5 / 1592.5 1175 / 1475 823 / 823 Lab / Micro Data 12/24/23 04:46 12/24/23 04:46 Micro: Microbiology 12/24/23 16:19 Wound Abcess - Aerobic & Anaerobic Swabs Gram Stain - Final 12/24/23 16:19 Wound Abcess - Aerobic & Anaerobic Swabs Wound Culture - Preliminary GNR Poss 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 Gram negative leodan Staphylococcus aureus 12/23/23 14:14 Ulcer, Decubitus - Right Foot Gram Stain - Final 12/23/23 14:14 Ulcer, Decubitus - Right Foot Wound Culture - Preliminary Staphylococcus aureus Pseudomonas aeruginosa Escherichia coli 12/24/23 16:20 Tissue - Toe Gram Stain - Final 12/24/23 16:20 Tissue - Toe Wound Culture - Preliminary Pseudomonas aeruginosa 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 Second and third toe right foot amputation noted with intact sutures and incision. Mild periwound erythema edema. Assessment & Plan Assessment/Plan (1) Osteomyelitis of foot, right, acute: PLAN: Exam performed. 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 Will continue to follow patient daily. (2) Closed displaced fracture of lesser toe of right foot: QUALIFIERS: Encounter type: initial encounter Phalanx: proximal Qualified Code(s): S92.511A - Displaced fracture of proximal phalanx of right lesser toe(s), initial encounter for closed fracture (3) Non-pressure chronic ulcer of other part of right foot with necrosis of bone: (4) Closed displaced fracture of lesser toe of left foot: QUALIFIERS: Encounter type: initial encounter Phalanx: proximal Qualified Code(s): S92.512A - Displaced fracture of proximal phalanx of left lesser toe(s), initial encounter for closed fracture
[2023-12-26] MEDS: cycloBENZAPRine HCl 5 MG TABLET PO ×2 (14:17→21:39)
[2023-12-26 14:21] VITALS: BP 115/76; PULSE 72; RESP 19; TEMP 36.7; O2SAT 97
--- NOTE | 2023-12-26 14:29 | CON.PCM.SX_ITS ---
Assessment & Plan Assessment/Plan (1) Osteomyelitis of foot, right, acute: PLAN: -palpable pedal pulses -healthy bleeding at time of amputation -no significant PAD risk factors -await formal vascular studies, but expect them to be normal or near normal HPI Consult Data Date of Consult: 12/26/23 HPI Narrative HPI Narrative: CASPER GONZALEZ, is a 52 M who presents with prior RLE crush injury to foot requiring significant washout/pinning. He subsequently went on to have ischemic digits that required amputation. Given the progression of digits after injury vascular evaluation is requested. He denies history of PAD/DM/tobacco use. 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 [facility] Medical History Wears glasses History of steroid therapy Non-smoker Left wrist pain Migraines Arthritis Seasonal allergies Home Medications ?Medication ?Instructions ?Recorded ?Last Taken ?Type multivitamin (Daily Multi-Vitamin 1 tab PO DAILY supplement 09/15/23 Unknown History tablet) acetaminophen 500 mg capsule 500 mg PO Q6H PRN pain #30 caps 12/12/23 Unknown Rx acetaminophen 500 mg tablet 1,000 mg (2 x 500 mg) PO Q8 pain 12/12/23 Unknown Rx #0 tabs ibuprofen 800 mg tablet 800 mg PO Q8H foot paipn #30 tabs 12/12/23 Unknown Rx oxycodone 5 mg tablet 5 mg PO Q4H PRN pain 7 days #42 12/12/23 Unknown Rx tabs oxycodone 5 mg tablet 10 - 15 mg (2 - 3 x 5 mg) PO Q4H 12/12/23 Unknown Rx PRN PRN Pain Score 4-10 5 days #65 tabs aspirin 81 mg capsule 162 mg PO DAILY preventive 12/23/23 Unknown History Allergy/AdvReac Type Severity Reaction Status Date / Time No Known Allergies Allergy Verified 09/22/23 12:52 Family History Father Heart disease Hypertension Diabetes Mother Heart disease Surgical History H/O removal of cyst H/O sinus surgery Social History household members: spouse current occupational status: employed Smoking Status: Never smoker alcohol intake: never substance use type: does not use ROS Constitutional Constitutional: Denies chills, fever(s), frequent falls, lethargy or weakness Eyes Eyes: Denies blind spots, change in vision or loss of vision ENT HEENT: Denies bleeding gums, hoarseness or sore throat Cardiovascular Cardiovascular: Denies abdominal pain, bluish discoloration of hand/feet, chest pain with activity, claudication, cold extremities, cyanosis, dyspnea on exertion, erythema on extremities, irregular heart rhythm, leg edema, leg ulcers, numbness in extremities or weakness in extremities Respiratory/Chest Respiratory/Chest: Denies cough, excessive phlegm production, shortness of breath at rest, shortness of breath with exertion or wheezing Gastrointestinal Gastrointestinal: Denies anorexia, change in stool character, constipation, diarrhea, melena or rectal bleeding Genitourinary Genitourinary: Denies dysuria or hematuria Musculoskeletal Musculoskeletal: Denies abnormal gait Integumentary Integumentary: Reports other Details: ; Denies erythema, non-healing lesions or wounds Neurologic Neurologic: Denies abnormal speech, focal weakness, headache(s), loss of vision, numbness, paresthesias or sensory deficit Hematologic/Lymphatic Hematologic/Lymphatic: Denies easy bleeding, easy bruising or lymphadenopathy Physical Exam Const alert, oriented x3, no apparent distress and healthy appearing General Appearance: cooperative; Negative for combative or lethargic Orientation / Consciousness: awake Exam Limitations: no limitations HEENT Head and Scalp: normocephalic and atraumatic Eyes EOMs intact bilaterally General Eye: normal appearance of both eyes Neck full ROM, no lymphadenopathy and thyroid normal General: trachea midline; Negative for lymphadenopathy or tenderness Thyroid: thyroid normal Resp normal respiratory effort and no use of accessory muscles Effort and Inspection: Negative for labored, stridor or audible wheezes Cardio regular rate and regular rhythm Cardio Narrative: trace edema RLE Peripheral Pulses: brachial pulses present, radial pulses present, popliteal pulses present, posterior tibial pulses present and dorsalis pedis pulses present Back/Spine Cervical Spine: cervical ROM normal Extremity full ROM and normal capillary refill General Extremity: edema right lower extremity trace Skin no rashes or lesions noted Skin Narrative: right foot dressing C/D/I Neuro oriented x3, CN's II-XII intact bilaterally, no focal motor deficits and no sensory deficits noted Psych thought process normal, cooperative, affect normal, speech normal and activity/motor behavior normal Lab / Micro Data 12/24/23 04:46 12/24/23 04:46 Micro: Microbiology 12/23/23 14:14 Ulcer, Decubitus - Right Foot Gram Stain - Final 12/23/23 14:14 Ulcer, Decubitus - Right Foot Wound Culture - Final Staphylococcus aureus Pseudomonas aeruginosa Escherichia coli 12/24/23 16:19 Wound Abcess - Aerobic & Anaerobic Swabs Gram Stain - Final 12/24/23 16:19 Wound Abcess - Aerobic & Anaerobic Swabs Wound Culture - Preliminary GNR Poss 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
[2023-12-26 20:10] VITALS: BP 125/75; PULSE 71; RESP 18; TEMP 36.5; O2SAT 96
[2023-12-26 20:12] LABS: Vancomycin, Trough Level 16.8 ug/mL (5.0-15.0)
--- NOTE | 2023-12-26 20:18 | PHA.PHARE_ITS ---
Consult Antibiotic Management Pharmacy has been consulted to manage selected antibiotic: Vancomycin Type of Intervention Type of Consult: Follow-up Suspected Infection Suspected Infection: Osteomyelitis Labs Labs: Sodium 138 mmol/L (136-145) 12/24/23 04:46 Potassium 3.9 mmol/L (3.5-5.1) 12/24/23 04:46 Chloride 108 mmol/L (98-107) H 12/24/23 04:46 Carbon Dioxide 27.0 mmol/L (21.0-32.0) 12/24/23 04:46 Anion Gap 3 (5-15) L 12/24/23 04:46 BUN 12 mg/dL (7-18) 12/24/23 04:46 Creatinine 0.85 mg/dL (0.70-1.30) 12/24/23 04:46 Est GFR (MDRD) Af Amer 122 mL/min (>60) 12/24/23 04:46 Est GFR (MDRD) Non-Af 101 mL/min (>60) 12/24/23 04:46 BUN/Creatinine Ratio 14.2 RATIO (10-20) 12/24/23 04:46 Glucose 96 mg/dL (74-106) 12/24/23 04:46 Vancomycin Trough 16.8 ug/mL (5.0-15.0) H 12/26/23 19:25 Microbiology Microbiology: Microbiology 12/23/23 14:14 Ulcer, Decubitus - Right Foot Gram Stain - Final 12/23/23 14:14 Ulcer, Decubitus - Right Foot Wound Culture - Final Staphylococcus aureus Pseudomonas aeruginosa Escherichia coli 12/23/23 14:14 Ulcer, Decubitus - Right Foot Anaerobic Culture - Preliminary Checking for anaerobes, further studies to follow. 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 Will continue dosing at 1000mg q8h, and will draw another trough level in two days. Pharmacy Service will continue to monitor and adjust dosing as required. Follow-Up Labs Follow-Up Labs: Trough: Vancomycin Date/Time Labs Ordered Labs to be done on [date and time ordered]: 12/28/23 @8793
[2023-12-27 02:15] VITALS: BP 128/91; PULSE 54; RESP 19; TEMP 36.3; O2SAT 96
[2023-12-27] MEDS: Vancomycin IV 1,000 MG/200 ML BAG 200 MG IV (04:21)
[2023-12-27] MEDS: Ibuprofen 400 MG Tablet 800 MG PO ×3 (05:37→20:53)
[2023-12-27] MEDS: oxyCODONE 5 MG Tablet 10 MG PO ×4 (05:37→20:28)
[2023-12-27] MEDS: Piperacil/Tazobactam 3.375 GM in 0.9% Normal Saline (50mL MB+) 50 ML IV (05:38)
[2023-12-27] MEDS: Juven (unflavored) Packet 1 PACKET PO ×2 (08:40→17:09)
--- NOTE | 2023-12-27 09:04 | PCM.HOSP.N ---
Hospitalist Note Patient seen and examined briefly today, he voices no complaints of foot pain today, he was seen by vascular surgery yesterday and they plan on doing arterial Dopplers on his right leg, they feel that it will probably be normal. ID is due to see the patient tomorrow also. Patient denies any needs as far as internal medicine is concerned so I will not follow the patient daily, I will be available if there is any questions or you need my input.
[2023-12-27 09:28] VITALS: BP 132/88; PULSE 65; RESP 16; TEMP 36.6; O2SAT 99
[2023-12-27] MEDS: Acetaminophen 325 MG Tablet 650 MG PO ×2 (09:40→20:29)
--- NOTE | 2023-12-27 10:54 | PCM.PROGNOTE ---
Subjective Subjective Patient was seen this morning for follow up on right foot. He is resting in bed. Pain appears controlled. No fevers, chills, nausea or vomiting. No calf pain or cramping at this time. Objective Data Objective Data Vital Signs: Vital Signs Temp Pulse Resp BP Pulse Ox O2 Del Method 97.9 F 65 16 132/88 H 99 Room Air 12/27/23 09:28 12/27/23 09:28 12/27/23 09:28 12/27/23 09:28 12/27/23 09:28 12/27/23 09:28 Oxygen Delivery Method Room Air Weight: 99.33 kg Body Mass Index (BMI) 32.3 Intake & Output: Intake and Output for Last 24 Hours 12/25/23 12/26/23 12/27/23 23:59 23:59 23:59 Intake Total 2675 / 2975 3373 / 3373 1050 / 1050 Output Total 1500 / 1500 2150 / 2550 1200 / 1200 Balance 1175 / 1475 1223 / 823 -150 / -150 Lab / Micro Data 12/24/23 04:46 12/24/23 04:46 Labs: Laboratory Results - last 24 hr 12/26/23 19:25: Vancomycin Trough 16.8 H Micro: Microbiology 12/24/23 16:20 Tissue - Toe Gram Stain - Final 12/24/23 16:20 Tissue - Toe Wound Culture - Final Pseudomonas aeruginosa Escherichia coli Serratia marcescens Staphylococcus caprae 12/24/23 16:19 Wound Abcess - Aerobic & Anaerobic Swabs Gram Stain - Final 12/24/23 16:19 Wound Abcess - Aerobic & Anaerobic Swabs Wound Culture - Final Pseudomonas aeruginosa Escherichia coli Staphylococcus aureus 12/23/23 14:14 Ulcer, Decubitus - Right Foot Gram Stain - Final 12/23/23 14:14 Ulcer, Decubitus - Right Foot Wound Culture - Final Staphylococcus aureus Pseudomonas aeruginosa Escherichia coli 12/23/23 14:14 Ulcer, Decubitus - Right Foot Anaerobic Culture - Preliminary Checking for anaerobes, further studies to follow. Physical Exam Narrative Right foot - Open wounds dorsal forefoot which are stable and granular, there is partial hallux amputation right foot noted with intact incision and sutures and healing well, second and third toe right foot amputation noted with intact sutures and incision, there is noted diffuse edema to his foot, there is some very light rubor to his dorsal foot, no blistering, no visible abscess, no fluctuance, no crepitus and pain is controlled at this time. No evidence of compartment syndrome right foot. CFT < 2 seconds to toes 4 and 5 and amp site 1st toe viable - no evidence of acute ischemia right foot. Calf is soft and supple with no calf pain - no evidence of DVT bilateral. Const alert, oriented x3 and no apparent distress Assessment & Plan Assessment/Plan (1) Osteomyelitis of foot, right, acute: PLAN: Evaluation performed Reviewed cultures - he is on IV antibiotics - Cultures positive for pseudomonas aeruginosa, e coli, serratia macescens, and staph caprae - plan to switch antibiotic based on sensitivities - Awaiting ID antibiotic recommendations Continue non weightbearing to right foot Keep right foot elevated Dressing change redressed with adaptic, Betadine, gauze, kerlix and cara dressing - keep clean, dry and intact Dr. Ahumada evaluated patient and good blood flow to foot at this time - no plans for vascular intervention Will continue to follow patient daily, reviewed with Dr. Mitchell (2) Closed displaced fracture of lesser toe of right foot: QUALIFIERS: Encounter type: initial encounter Phalanx: proximal Qualified Code(s): S92.511A - Displaced fracture of proximal phalanx of right lesser toe(s), initial encounter for closed fracture (3) Non-pressure chronic ulcer of other part of right foot with necrosis of bone: (4) Closed displaced fracture of lesser toe of left foot: QUALIFIERS: Encounter type: initial encounter Phalanx: proximal Qualified Code(s): S92.512A - Displaced fracture of proximal phalanx of left lesser toe(s), initial encounter for closed fracture
[2023-12-27 11:38] LABS: Absolute Lymphocyte Count 1.13 X10^3/uL (0.83-4.51); Absolute Neutrophil Count 3.6 X10^3/uL (2.0-7.7); Basophil# 0.07 X10^3/uL; Basophil% 1.2 % (0-1); Eosinophil# 0.35 X10^3/uL; Eosinophils% 6.1 % (0-5); Hematocrit 39.3 % (40-54); Lymphocyte # 1.13 X10^3/ul (0.83-4.51); Lymphocyte % 19.8 % (19-41); Mean Corp Hgb Conc 33.1 g/dL (32-36); Mean Corpuscular Hgb 29.5 pg (27.0-32.0); Mean Corpuscular Volume 89.1 fL (80-94); Mean Platelet Vol. 9.8 fl (6.2-12.0); Monocyte# 0.54 X10^3/uL; Monocyte% 9.4 % (0-10); NRBC Flagged by Analyzer 0 % (0-5); Neutrophil # 3.57 X10^3/uL (2.7-7.7); Neutrophil % 62.5 % (47-70); Platelet Count 254 K/mm3 (150-450); RBC Distribution Width CV 11.9 % (11.6-14.6); RBC Distribution Width SD 38.2 fl (35.1-43.9); Red Blood Count 4.41 M/mm3 (4.6-6.2); White Blood Count 5.7 K/mm3 (4.4-11.0)
[2023-12-27 11:55] LABS: Anion Gap 7 (5-15); BUN 17 mg/dL (7-18); BUN/Creat Ratio 16.5 RATIO (10-20); Calcium,Total 9.1 mg/dL (8.5-10.1); Chloride 106 mmol/L (98-107); Creatinine, Serum 1.03 mg/dL (0.70-1.30); EST Glomerular Filtration Rate 80 mL/min (>60); Est Glom Filt Rate - Afr Amer 97 mL/min (>60); Estimated Creatinine Clearance 96.38 ml/min; Glucose 116 mg/dL (74-106); Potassium 3.9 mmol/L (3.5-5.1); Sodium Level 140 mmol/L (136-145)
[2023-12-27] MEDS: Ciprofloxacin 500 MG Tablet PO ×2 (13:04→20:53)
[2023-12-27] MEDS: Amox/Clavulanate 875 MG Tablet PO ×2 (13:04→20:54)
[2023-12-27 15:32] VITALS: BP 129/81; PULSE 72; RESP 16; TEMP 36.8; O2SAT 98
[2023-12-27 19:34] VITALS: BP 115/58; PULSE 77; RESP 18; TEMP 36.8; O2SAT 98
[2023-12-27 20:37] VITALS: O2SAT 98
[2023-12-27] MEDS: 0.9% Saline Lock 10 ML Syringe IV (20:47)
[2023-12-28 00:24] VITALS: BP 132/78; PULSE 71; RESP 14; TEMP 36.4; O2SAT 97
[2023-12-28 04:27] VITALS: BP 105/77; PULSE 72; RESP 18; TEMP 36.6; O2SAT 98
[2023-12-28] MEDS: Ibuprofen 400 MG Tablet 800 MG PO ×2 (06:29→14:01)
[2023-12-28] MEDS: Acetaminophen 325 MG Tablet 650 MG PO ×2 (06:30→12:35)
[2023-12-28] MEDS: oxyCODONE 5 MG Tablet 10 MG PO ×2 (06:30→12:35)
[2023-12-28] MEDS: Amox/Clavulanate 875 MG Tablet PO (09:25)
[2023-12-28] MEDS: Ciprofloxacin 500 MG Tablet PO (09:25)
[2023-12-28] MEDS: Juven (unflavored) Packet 1 PACKET PO (09:25)
[2023-12-28 09:28] VITALS: BP 144/75; PULSE 81; RESP 16; TEMP 36.5; O2SAT 98
--- NOTE | 2023-12-28 10:34 | PCM.PN.ID ---
Physical Exam Narrative Feeling ok, mild pain, no fever, no n/v/d. Const alert and no apparent distress General Appearance: cooperative Resp normal air movement and clear to auscultation bilaterally Cardio regular rate and regular rhythm GI soft to palpation, non-tender and non-distended Skin Skin Narrative: foot wrapped ID ID: Route of nutrition/ use of supplements: [] Nutritional Intake: [] IV Site: [] Fitch Catheter: [] Assessment & Plan Assessment/Plan (1) Osteomyelitis of foot, right, acute: PLAN: Wound cx and surg cx with ecoli, PsA, serratia, MSSA, CoNS, anaerobes. OR 12/24/[address] Gonsalez to amputation of 1st, 2nd, and 3rd toes. Now on cipro/augmentin, plan on 10 more days at discharge if no residual osteo. Will follow
--- NOTE | 2023-12-28 10:55 | WOUNDNOTE ---
wound photo: right foot
--- NOTE | 2023-12-28 12:24 | PCM.PROGNOTE ---
Subjective Subjective Patient resting comfortably today. Denies constitutional. No other changes noted. Objective Data Objective Data Vital Signs: Vital Signs Temp Pulse Resp BP Pulse Ox O2 Del Method 97.7 F L 81 16 144/75 H 98 Room Air 12/28/23 09:28 12/28/23 09:28 12/28/23 09:28 12/28/23 09:28 12/28/23 09:28 12/28/23 09:32 Oxygen Delivery Method Room Air Weight: 99.33 kg Body Mass Index (BMI) 32.3 Intake & Output: Intake and Output for Last 24 Hours 12/26/23 12/27/23 12/28/23 23:59 23:59 23:59 Intake Total 3373 / 3373 1050 / 2050 1000 / 1000 Output Total 2150 / 2550 1200 / 1200 Balance 1223 / 823 -150 / 850 1000 / 1000 Lab / Micro Data 12/27/23 11:25 12/27/23 11:25 Micro: Microbiology 12/24/23 16:20 Tissue - Toe Gram Stain - Final 12/24/23 16:20 Tissue - Toe Wound Culture - Final Pseudomonas aeruginosa Escherichia coli Serratia marcescens Staphylococcus caprae 12/24/23 16:20 Tissue - Toe Anaerobic Culture - Final No anaerobic bacteria isolated. 12/23/23 14:14 Ulcer, Decubitus - Right Foot Gram Stain - Final 12/23/23 14:14 Ulcer, Decubitus - Right Foot Wound Culture - Final Staphylococcus aureus Pseudomonas aeruginosa Escherichia coli 12/23/23 14:14 Ulcer, Decubitus - Right Foot Anaerobic Culture - Final Anaerobic cocci 12/24/23 16:19 Wound Abcess - Aerobic & Anaerobic Swabs Gram Stain - Final 12/24/23 16:19 Wound Abcess - Aerobic & Anaerobic Swabs Wound Culture - Final Pseudomonas aeruginosa Escherichia coli Staphylococcus aureus 12/24/23 16:19 Wound Abcess - Aerobic & Anaerobic Swabs Anaerobic Culture - Preliminary Checking for anaerobes, further studies to follow. Physical Exam Narrative Neurovascular status unchanged. Dorsal forefoot wound x 2 noted with clean granular stable bases. Mild periwound erythema edema noted. Incision to right hallux second toe and third toe amputation sites are well-approximated with intact sutures. Absent right first second and third toes. Const alert, oriented x3 and no apparent distress Assessment & Plan Assessment/Plan (1) Osteomyelitis of foot, right, acute: PLAN: Evaluation performed Reviewed cultures -ID placed patient on p.o. Augmentin and ciprofloxacin. Continue non weightbearing to right foot Keep right foot elevated Dressing change redressed with Betadine wet-to-dry to wound site. Dressed incisional sites with Betadine Adaptic. Overlying 4 x 4 Kerlix Matias bandage applied. Plan for home health care dressing changes 2 times in between visits. This will consist of Dakin's wet-to-dry to the dorsal foot wounds as well as Betadine Adaptic to the incisional sites with overlying 4 x 4's Kerlix and Matias bandage. Dr. Ahumada evaluated patient and good blood flow to foot at this time - no plans for vascular intervention Will continue to follow patient daily, reviewed with Dr. Mitchell (2) Closed displaced fracture of lesser toe of right foot: QUALIFIERS: Encounter type: initial encounter Phalanx: proximal Qualified Code(s): S92.511A - Displaced fracture of proximal phalanx of right lesser toe(s), initial encounter for closed fracture (3) Non-pressure chronic ulcer of other part of right foot with necrosis of bone: (4) Closed displaced fracture of lesser toe of left foot: QUALIFIERS: Encounter type: initial encounter Phalanx: proximal Qualified Code(s): S92.512A - Displaced fracture of proximal phalanx of left lesser toe(s), initial encounter for closed fracture
--- NOTE | 2023-12-28 12:27 | PCM.DC.SUM ---
Providers Date of Admission: 12/23/23 Primary Care Physician: Abhijeet Martinez MD Consultations 12/23/23 17:08 Consult: Hospitalist Routine Consulting Provider: Lindsey Castro Reason for Consult: medical management EMERGENT Consult: No MD Notified: Yes Date Notified: 12/23/23 Time Notified: 17:12 Method of Notification: Text Consult: Infectious Disease Routine Consulting Provider: Norris Raphael Reason for Consult: right foot infection EMERGENT Consult: No MD Notified: Yes Date Notified: 12/23/23 Time Notified: 17:12 Method of Notification: Text 12/24/23 07:44 Consult: Vascular Surgery Routine Consulting Provider: Adria Ahumada Reason for Consult: gangrene in setting of trauma EMERGENT Consult: No Notified: Yes Date Notified: 12/24/23 Time Notified: 08:15 Method of Notification: Text Reason For Visit: R FOOT INFECTION Diagnosis Discharge Diagnosis (1) Osteomyelitis of foot, right, acute: Status: Acute Code(s): M86.171 - Other acute osteomyelitis, right ankle and foot Plan: Evaluation performed Reviewed cultures -ID placed patient on p.o. Augmentin and ciprofloxacin. Continue non weightbearing to right foot Keep right foot elevated Dressing change redressed with Betadine wet-to-dry to wound site. Dressed incisional sites with Betadine Adaptic. Overlying 4 x 4 Kerlix Matias bandage applied. Plan for home health care dressing changes 2 times in between visits. This will consist of Dakin's wet-to-dry to the dorsal foot wounds as well as Betadine Adaptic to the incisional sites with overlying 4 x 4's Kerlix and Matias bandage. Dr. Ahumada evaluated patient and good blood flow to foot at this time - no plans for vascular intervention Will continue to follow patient daily, reviewed with Dr. Mitchell (2) Closed displaced fracture of lesser toe of right foot: Status: Acute Code(s): S92.501A - Displaced unspecified fracture of right lesser toe(s), initial encounter for closed fracture Qualifiers: Encounter type: initial encounter Phalanx: proximal Qualified Code(s): S92.511A - Displaced fracture of proximal phalanx of right lesser toe(s), initial encounter for closed fracture (3) Non-pressure chronic ulcer of other part of right foot with necrosis of bone: Status: Chronic Code(s): L97.514 - Non-pressure chronic ulcer of other part of right foot with necrosis of bone (4) Closed displaced fracture of lesser toe of left foot: Status: Acute Code(s): S92.502A - Displaced unspecified fracture of left lesser toe(s), initial encounter for closed fracture Qualifiers: Encounter type: initial encounter Phalanx: proximal Qualified Code(s): S92.512A - Displaced fracture of proximal phalanx of left lesser toe(s), initial encounter for closed fracture Medications at Discharge Home Medications multivitamin (Daily Multi-Vitamin tablet) 1 tab PO DAILY supplement 09/15/23 acetaminophen 500 mg capsule 500 mg PO Q6H PRN pain #30 caps 12/12/23 acetaminophen 500 mg tablet 1,000 mg (2 x 500 mg) PO Q8 pain #0 tabs 12/12/23 ibuprofen 800 mg tablet 800 mg PO Q8H foot paipn #30 tabs 12/12/23 oxycodone 5 mg tablet 5 mg PO Q4H PRN pain 7 days #42 tabs 12/12/23 oxycodone 5 mg tablet 10 - 15 mg (2 - 3 x 5 mg) PO Q4H PRN PRN Pain Score 4-10 5 days #65 tabs 12/12/23 aspirin 81 mg capsule 162 mg PO DAILY preventive 12/23/23 acetaminophen 500 mg capsule 500 mg PO Q6H PRN fever or pain #60 caps 12/28/23 amoxicillin 875 mg-potassium clavulanate 125 mg tablet 1 tab PO BIDCM 10 days #20 tabs 12/28/23 aspirin 81 mg tablet,delayed release 162 mg (2 x 81 mg) PO DAILY #30 tabs 12/28/23 ciprofloxacin HCl 500 mg tablet 500 mg PO BID 10 days #20 tabs 12/28/23 ibuprofen 800 mg tablet 800 mg PO Q8H #60 tabs 12/28/23 oxycodone 5 mg tablet 5 mg PO Q4H PRN pain 7 days #42 tabs 12/28/23 Hospital Course Summary of Care Provided Hospital Course: Patient was admitted due to worsening right foot with gangrenous changes to right hallux second and third toe with diffuse discolored drainage malodor forefoot swelling noted. Concern was for wet gangrene in setting of open fracture. Patient was taken the operating room on 12/24/2023. Right foot wounds were debrided as well as right partial hallux and complete amputation of second and third toes were performed. Intraoperative cultures were taken and antibiotics for cure per infectious disease. Patient had significant pain improvement after amputation and several days of IV antibiotics. Patient was evaluated by vascular surgery yielded to have intact blood flow to the right lower extremity. Patient be discharged on p.o. antibiotics. Physical Exam Narrative Neurovascular status unchanged. Dorsal forefoot wound x 2 noted with clean granular stable bases. Mild periwound erythema edema noted. Incision to right hallux second toe and third toe amputation sites are well-approximated with intact sutures. Absent right first second and third toes. Const alert, oriented x3 and no apparent distress Weight / BMI Weight Weight: 99.33 kg Body Mass Index (BMI) 32.3 ABG / Lab / Microbiology Data 12/27/23 11:25 12/27/23 11:25 Microbiology: Microbiology 12/24/23 16:20 Tissue - Toe Gram Stain - Final 12/24/23 16:20 Tissue - Toe Wound Culture - Final Pseudomonas aeruginosa Escherichia coli Serratia marcescens Staphylococcus caprae 12/24/23 16:20 Tissue - Toe Anaerobic Culture - Final No anaerobic bacteria isolated. 12/23/23 14:14 Ulcer, Decubitus - Right Foot Gram Stain - Final 12/23/23 14:14 Ulcer, Decubitus - Right Foot Wound Culture - Final Staphylococcus aureus Pseudomonas aeruginosa Escherichia coli 12/23/23 14:14 Ulcer, Decubitus - Right Foot Anaerobic Culture - Final Anaerobic cocci 12/24/23 16:19 Wound Abcess - Aerobic & Anaerobic Swabs Gram Stain - Final 12/24/23 16:19 Wound Abcess - Aerobic & Anaerobic Swabs Wound Culture - Final Pseudomonas aeruginosa Escherichia coli Staphylococcus aureus 12/24/23 16:19 Wound Abcess - Aerobic & Anaerobic Swabs Anaerobic Culture - Preliminary Checking for anaerobes, further studies to follow. Meaningful Use Info Meaningful Use Meaningful Use Diagnoses (Choose all that apply): None applicable Ischemic Stroke Statin Dosing Therapy Reference: STATIN DOSE THERAPY REFERENCE: * Patients > 75 years receive moderate or high dose statin therapy. * Patients 75 years or YOUNGER should receive HIGH intensity statin dose unless contraindicated. You will be required to document reason for non-treatment if statin daily dose does not meet guidelines. HIGH DOSE STATIN THERAPY DAILY Atorvastatin > than or = to 40 mg Rosuvastatin > than or = to 20 mg Amlodipine + Atorvastatin > than or = to 2.5/40 mg Ezetimibe + Simvastatin 10/80 mg Simvastatin 80mg Discharge Plan Admission Admit Date/Time: 12/23/23 17:08 Attending Provider: Hiram Gonsalez Primary Care Provider: Abhijeet Martinez Consulting Providers: Sung Mitchell; Lindesy Castro; Norris Raphael; Adria Ahumada Instructions Patient Instructions: Post-Op Tips: Foot Additional Instructions / Restrictions: Will discharge with home health care dressing changes 2 times a week consisting of Dakin's wet-to-dry to the dorsal foot wound and Betadine Adaptic to the incisional site with overlying 4 x 4's Kerlix and Matias bandage Patient will maintain nonweightbearing to right lower extremity Patient will contact our office with any worsening pain, strikethrough or signs or symptoms of infection. Patient will take prescriptions as directed Patient will follow-up with me in the office 12/30/2023 and then again next week on Wednesday at the wound care center and Discharge Orders/Prescriptions Prescriptions: New ciprofloxacin HCl 500 mg Tablet 500 mg PO BID 10 Days Qty: 20 0RF amoxicillin-pot clavulanate 875-125 mg Tablet 1 tab PO BIDCM 10 Days Qty: 20 0RF oxycodone 5 mg tablet 5 mg PO Q4H PRN (Reason: pain) 7 Days Qty: 42 0RF ibuprofen 800 mg tablet 800 mg PO Q8H Qty: 60 0RF acetaminophen 500 mg capsule 500 mg PO Q6H PRN (Reason: fever or pain) Qty: 60 0RF aspirin 81 mg tablet,delayed release (DR/EC) 162 mg PO DAILY Qty: 30 0RF No Action multivitamin [Daily Multi-Vitamin] Tablet 1 tab PO DAILY oxycodone 5 mg tablet 5 mg PO Q4H PRN (Reason: pain) 7 Days Qty: 42 0RF ibuprofen 800 mg tablet 800 mg PO Q8H Qty: 30 0RF acetaminophen 500 mg capsule 500 mg PO Q6H PRN (Reason: pain) Qty: 30 0RF acetaminophen 500 mg Tablet 1,000 mg PO Q8 Qty: 0 0RF oxycodone 5 mg Tablet 10 - 15 mg PO Q4H PRN PRN (Reason: Pain Score 4-10) 5 Days Qty: 65 0RF aspirin 81 mg capsule 162 mg PO DAILY Referrals / Follow Up: Abhijeet Martinez MD [Primary Care Provider] - Hiram Gonsalez DPM [Med Staff - Active Staff] - Disposition Disposition (needs filled in before D/C Order can be placed): Home Health Service
--- NOTE | 2023-12-28 12:44 | CASEMGMT ---
Discharge Planning A list of?HH providers including quality and resource use data and consistent with the patient's preferred geographic region, medical needs, and insurance network was created in [facility] Guide.? This list was provided to the RN CASS. Kaylan An, Discharge Planning Asst.
--- NOTE | 2023-12-28 13:13 | CASEMGMT ---
NABILA CM into pt room, provided pt with a list of HH options created by dc assistant professor of chemistry. Pt states he has no preference and wishes to go down the line on the paper given. Requested secretary office clerk set up appt with Dr. Gonsalez in his office this and then the [facility] next Wednesday. Pt preference is 3pm or later but realizes this may not be possible. TC to [facility], spoke with Lucy, referral made. Will await decision to accept.
[2023-12-28 14:02] VITALS: BP 124/83; PULSE 84; RESP 16; TEMP 36.6; O2SAT 98
--- NOTE | 2023-12-28 14:38 | PHA.DC.MC.R ---
Pharmacy [facility] has performed discharge medication reconciliation and counseling for this patient. The patient's discharge medication list was reviewed for discrepancies and discrepancies were resolved. The patient was counseled on the following discharge medications and changes in medications for homegoing were reviewed. The Reason for Use, instructions for use, and potential side effects were reviewed for all new medications. The patient's questions regarding all of their medications were answered. 1. Augmentin 875/125 mg PO BID x 10 days 2. Ciprofloxacin 500 mg PO BID x 10 days 3. Oxycodone 5 mg PO Q4H PRN pain 4. Ibuprofen 800 mg Q8H 5. Aspirin 162 mg PO daily The patient was able to verbally demonstrate an understanding of their discharge medications. Medications at Discharge Home Medications multivitamin (Daily Multi-Vitamin tablet) 1 tab PO DAILY supplement 09/15/23 amoxicillin 875 mg-potassium clavulanate 125 mg tablet 1 tab PO BIDCM 10 days #20 tabs 12/28/23 aspirin 81 mg tablet,delayed release 162 mg (2 x 81 mg) PO DAILY #30 tabs 12/28/23 ciprofloxacin HCl 500 mg tablet 500 mg PO BID 10 days #20 tabs 12/28/23 ibuprofen 800 mg tablet 800 mg PO Q8H #60 tabs 12/28/23 oxycodone 5 mg tablet 5 mg PO Q4H PRN pain 7 days #42 tabs 12/28/23
--- NOTE | 2023-12-29 10:06 | CASEMGMT ---
Addendum entered by Elizabeth Aly 12/29/23 10:10: C-9 for HH initiated. TC to Dr. Gonsalez's office, spoke with Destini, she is aware C-9 will be faxed and requested this form be faxed back for HH. TC to Lucy at [facility] to make aware that C-9 is being worked on. Original Note: Late entry 12/28/23 at 1625- Received notification from Lucy at [facility] that pt reported his case should be under workers comp. Pt has left the hospital. RN CM to follow
--- NOTE | 2023-12-30 09:11 | CASEMGMT ---
C-9 and [facility]CO-14 faxed to Bianca Prieto at this time. Updated Lucy at [facility] that the C-9 was submitted for [facility].
== END 2023-12-28 15:35 | disposition home health service (06) | DRG 465 ==
PROVIDERS: Internal Medicine Infectious Disease; Podiatrist; Admitting Provider Podiatrist; PCP Family Medicine; Referring Provider Podiatrist; Visit Provider Podiatrist
PROC: 0JBQ0ZZ Excision of Right Foot Subcutaneous Tissue and Fascia, Open Approach (ICD-10-PCS; principal; 2023-12-24 11:45)
DX: M86.171 Other acute osteomyelitis, right ankle and foot (principal); L97.514 Non-pressure chronic ulcer of other part of right foot with necrosis of bone; S92.511A Displaced fracture of proximal phalanx of right lesser toe(s), initial encounter for closed fracture; S92.512A Displaced fracture of proximal phalanx of left lesser toe(s), initial encounter for closed fracture; S97.121A Crushing injury of right lesser toe(s), initial encounter; S92.421B Displaced fracture of distal phalanx of right great toe, initial encounter for open fracture; W22.8XXA Striking against or struck by other objects, initial encounter; B96.5 Pseudomonas (aeruginosa) (mallei) (pseudomallei) as the cause of diseases classified elsewhere; B95.61 Methicillin susceptible Staphylococcus aureus infection as the cause of diseases classified elsewhere; B96.20 Unspecified Escherichia coli [E. coli] as the cause of diseases classified elsewhere; B96.89 Other specified bacterial agents as the cause of diseases classified elsewhere
CPT/HCPCS: 36415; 73620; 76000; 80048; 80053; 80202; 85025; 87015; 87070; 87075; 87077; 87102; 87116; 87176; 87184; 87186; 87205; 87206; 88305; 88311; 93923; 97162; 97803; J7030; J7040; J7050; J7120; A4216; J2405

== ENCOUNTER 2024-01-03 08:59 | Inpatient (IN) | payer OTHER, SELFPAY ==
[2024-01-03 09:00] VITALS: BP 155/96; PULSE 108; RESP 16; TEMP 36.2; O2SAT 99; BMI 33.5
--- NOTE | 2024-01-03 09:03 | EX.ED.DYSGE1 ---
HPI History of Present Illness Chief Complaint: Wound Check [facility] Medical History Wears glasses History of steroid therapy Non-smoker Left wrist pain Migraines Arthritis Seasonal allergies Home Medications ?Medication ?Instructions ?Recorded ?Last Taken ?Type multivitamin (Daily Multi-Vitamin 1 tab PO DAILY [facility] 09/15/23 Unknown History tablet) aspirin 81 mg tablet,delayed 162 mg (2 x 81 mg) PO DAILY HEART 12/28/23 Unknown Rx release HEALTH #30 tabs ibuprofen 800 mg tablet 800 mg PO Q8H PAIN #60 tabs 12/28/23 Unknown Rx oxycodone 5 mg tablet 5 mg PO Q4H PRN PAIN 7 days #42 12/28/23 Unknown Rx tabs amoxicillin 875 mg-potassium 1 tab PO BIDCM ANTIBIOTIC 01/03/24 Unknown History clavulanate 125 mg tablet ciprofloxacin HCl 500 mg tablet 500 mg PO BID ANTIBIOTIC 01/03/24 Unknown History Allergy/AdvReac Type Severity Reaction Status Date / Time No Known Allergies Allergy Verified 01/03/24 09:00 Family History Father Heart disease Hypertension Diabetes Mother Heart disease Surgical History H/O removal of cyst H/O sinus surgery Social History household members: spouse current occupational status: employed Smoking Status: Never smoker alcohol intake: never substance use type: does not use EXAM Physical Exam Const Vital Signs: 01/03/24 09:00 01/03/24 11:00 01/03/24 11:16 Temperature 97.2 F L 98 F Temperature Source Temporal Pulse Rate 108 H 88 88 Respiratory Rate 16 18 19 H Blood Pressure 155/96 H 136/89 H 136/83 H Blood Pressure Mean 115 104 100 Pulse Ox 99 98 97 Oxygen Delivery Method Room Air Room Air MDM MDM MDM Narrative Medical decision making narrative: HISTORY OF PRESENT ILLNESS: 53-year-old male presents concern for infection. States he is currently on antibiotics. States recent surgery, discharged on 12/28/2023 (6 days ago). States overnight developing chills. Denies fever. Concerned may be developing infection. States he called Dr. Gonsalez's office and told come to ED immediately. Denies vomiting. Denies increasing pain REVIEW OF SYSTEMS: Pertinent positives: Wound, fever, chills Pertinent negatives: Vomiting, abdominal pain PHYSICAL EXAM: Nursing triage notes reviewed, Vital signs reviewed Constitutional: please see mdm Lungs: Clear to auscultation, No wheezing or rales. No increased work of breathing, no conversational dyspnea, no accessory muscle use, no nasal flaring. No respiratory distress noted Heart: Regular rate and rhythm, No murmurs, No rubs and No gallops, 2+ distal pulses (radial, femoral, posterior tibial) in all extremities Abdomen: Soft, there is no tenderness, rigidity, rebound or guarding, no obvious peritoneal signs, no palpable pulsatile abdominal masses, no auscultated abdominal bruit Extremities: Status post amputation of first second and third toes. Right lower extremity status post amputation, warm, well-perfused, there is some serosanguineous drainage, multiple ulcerations noted over the dorsal surface of the right foot. No obvious purulent drainage, no excessive warmth. Intact pulses. Neuro: Intact sensation L1-S1 dermatomal distributions. Intact 5/5 strength in hip flexion (T12-L3). Knee extension (L2-L4). Ankle dorsiflexion (L4-L5). Ankle plantar flexion (S1). 2+ patellar and Achilles DTRs. Skin: Please see extremity exam MEDICAL DECISION MAKING: Chief Complaint: Wound External records reviewed: Status post debridement of right hallux open fracture, ORIF of right distal phalanx, percutaneous pinning of second toe, this occurred on December 10, 2023. Reviewed prior operative note from 12/26/2023. Underwent vascular surgery consultation by Dr. Ahumada. It was noted at this time that the patient subsequently suffered ischemic injury to his digits and required amputation. Factors affecting care: Arthritis, right lower extremity crush injury Consults: Podiatry (Dr. Gonsalez), internal medicine (Dr. Mitchell) [facility] Narrative: Patient was initially tachycardic, otherwise afebrile exam without obvious infection. Noted postop changes and serosanguineous drainage. No excessive warmth. I considered the following differential diagnosis: Postop infection, abscess, osteomyelitis, DVT I obtained a broad lab and imaging workup to further elucidate etiology of the patient's complaints including ruling out DVT, osteomyelitis, signs of sepsis or bacteremia I gave empiric gram-positive and gram-negative coverage in form of vancomycin and ciprofloxacin. ALL IMAGES (IF OBTAINED) HAVE BEEN PERSONALLY REVIEWED AND INTERPRETED BY MYSELF. Initial lactate elevated consistent with endorgan hypoperfusion, sepsis is more likely in this case CBC with no leukocytosis to suggest systemic inflammation, no anemia or thrombocytopenia BMP without evidence of significant electrolyte abnormalities, no anion gap to suggest endorgan hypoperfusion, no acute kidney injury. Bicarb is normal suggesting no metabolic acidosis X-ray of the right foot was read and reviewed myself shows prior amputations, no evidence of obvious osteomyelitic changes. Awaiting radiologist read which agreed with my DVT ultrasound was negative Discussed the case with the director of emergency nursing Dr. Gonsalez. He noted the patient did have signs that were concerning given initial elevated heart rate, elevated lactate and symptom of chills. He agrees most concerning to admit the patient to the hospitalist. The patient and/or family, caregivers express understanding. The patient and/or family, caregivers agrees with the plan. Shared decision making: I will have a discussion with the patient and or visitors regarding risk/benefits of further testing or admission. They will be made aware of of the risk/benefits inherent in this decision they will be given the opportunity to voice understanding. Total critical care time today provided was at least 0 minutes. This excludes separately billable procedures. Critical care time (if documented) is secondary to the patient having high probability of clinically significant/life threatening deterioration in the patient's condition which required my urgent intervention. Impression: 1. Chills 2. Tachycardic sign 3. Elevated lactate 4. Crush injury to right foot Dispo: Admit This note was generated with [employer] dictation software. It may contain incorrect words, spelling, and punctuation that were not noted in review of the chart prior to signing. Lab Data Labs: Laboratory Results - last 24 hr 01/03/24 09:27 WBC 6.0 RBC 4.85 Hgb 14.5 Hct 43.3 MCV 89.3 MCH 29.9 MCHC 33.5 RDW Std Deviation 39.1 RDW Coeff of Gianni 12.1 Plt Count 278 MPV 9.8 Sodium 140 Potassium 4.2 Chloride 107 Carbon Dioxide 25.0 Anion Gap 8 BUN 14 Creatinine 0.97 Estim Creat Clear Calc 104.15 Est GFR (MDRD) Af Amer 104 Est GFR (MDRD) Non-Af 86 BUN/Creatinine Ratio 14.4 Glucose 107 H Lactic Acid 2.5 H* Calcium 9.2 Radiography Diagnostic Testing: Clinical Impression(s) from Imaging Studies Foot X-Ray 01/03/24 10:10 IMPRESSION: New transcondylar amputation of the proximal phalanx of the great toe. New amputation of the second and third toes through the MTP joints. 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 Electronically Signed: Dony Adam MD at 10:28 EDT , Discharge Plan Triage Chief Complaint: Wound Check ED Provider: Jose Lopez Dx/Rx/DC Orders Prescriptions: No Action multivitamin [Daily Multi-Vitamin] Tablet 1 tab PO DAILY oxycodone 5 mg tablet 5 mg PO Q4H PRN (Reason: PAIN ) 7 Days Qty: 42 0RF ibuprofen 800 mg tablet 800 mg PO Q8H Qty: 60 0RF aspirin 81 mg tablet,delayed release (DR/EC) 162 mg PO DAILY Qty: 30 0RF ciprofloxacin HCl 500 mg Tablet 500 mg PO BID Patient Comments: START DATE: 12/28/2023 END DATE: 01/06/2024 Rx Instructions: TAKE ONE TABLET BY MOUTH TWICE DAILY FOR 10 DAYS. amoxicillin-pot clavulanate 875-125 mg Tablet 1 tab PO BIDCM Patient Comments: START DATE: 12/28/2023 END DATE: 01/06/2024 Rx Instructions: TAKE ONE TABLE BY MOUTH TWICE DAILY WITH MEALS FOR 10 DAYS. Primary Care Provider: Abhijeet Martinez Referrals: Abhijeet Martinez MD [Primary Care Provider] - Print Language: Estonian
--- NOTE | 2024-01-03 09:22 | VDLE_ITS ---
Reason For Study: RLE Swelling RIGHT LEFT GSV is normal. CFV is compressible, spontaneous, phasic, CFV is compressible, spontaneous, phasic, competent, and demonstrates normal competent and demonstrates normal augmentation. augmentation. FV is compressible, spontaneous, phasic, competent and demonstrates normal augmentation. POP V is compressible, spontaneous, phasic, competent and demonstrates normal augmentation. T/P Trunk is compressible. PTV is compressible. RT PerV is compressible. Procedure This is a venous duplex using B-mode, color flow and spectral Doppler. Exam performed in department. The exam was diagnostic. A preliminary report was called and/or faxed to ED recreation establishment manager. VL/Venous Duplex US, Unilateral Interpretation Summary Deep veins of the right lower extremity are patent and compressible segmentally . There is no evidence of right lower extremity deep vein thrombosis. The right great sapheno us vein appears patent and compressible segmentally. Ordering Physician: Jose Lopez Referring Physician: Abhijeet Martinez Performed By: Fredy Flower RVT
[2024-01-03 09:33] LABS: Hematocrit 43.3 % (40-54); Hemoglobin 14.5 g/dL (13.0-16.5); Mean Corp Hgb Conc 33.5 g/dL (32-36); Mean Corpuscular Hgb 29.9 pg (27.0-32.0); Mean Corpuscular Volume 89.3 fL (80-94); Mean Platelet Vol. 9.8 fl (6.2-12.0); Platelet Count 278 K/mm3 (150-450); RBC Distribution Width CV 12.1 % (11.6-14.6); RBC Distribution Width SD 39.1 fl (35.1-43.9); Red Blood Count 4.85 M/mm3 (4.6-6.2)
[2024-01-03] MEDS: Ciprofloxacin 400 MG/200 ML BAG 200 MG IV (09:55)
[2024-01-03 09:58] LABS: Anion Gap 8 (5-15); BUN 14 mg/dL (7-18); BUN/Creat Ratio 14.4 RATIO (10-20); Calcium,Total 9.2 mg/dL (8.5-10.1); Chloride 107 mmol/L (98-107); Creatinine, Serum 0.97 mg/dL (0.70-1.30); EST Glomerular Filtration Rate 86 mL/min (>60); Est Glom Filt Rate - Afr Amer 104 mL/min (>60); Estimated Creatinine Clearance 104.15 ml/min; Glucose 107 mg/dL (74-106); Potassium 4.2 mmol/L (3.5-5.1); Sodium Level 140 mmol/L (136-145)
[2024-01-03 10:04] LABS: Lactic Acid 2.5 mmol/L (0.4-1.9)
--- NOTE | 2024-01-03 10:10 | RAD_ITS ---
STUDY: X-RAY - RIGHT FOOT CLINICAL: Male, 53 years old. Post operative. TECHNIQUE: 2 views of the right foot. COMPARISON: Right foot radiographs dated 12/10/2023. FINDINGS: There is new transcondylar amputation of the proximal phalanx of the great toe. There is also new amputation of the second and third toes through the MTP joints. There is an unchanged old ununited fracture of the distal aspect of the fifth middle phalanx. Normal talus, calcaneus, and tarsal bones. Normal visualized subtalar, talonavicular, calcaneocuboid, tarsal and tarsometatarsal articulations. Normal metatarsi. RAD/Foot 2 Views IMPRESSION: New transcondylar amputation of the proximal phalanx of the great toe. New amputation of the second and third toes through the MTP joints. 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 Electronically Signed: Dony Adam MD at 10:28 EDT ,
--- NOTE | 2024-01-03 10:20 | ED.RN ---
critical lactic of 2.5. Dr. Lopez informed
[2024-01-03 11:00] VITALS: BP 136/89; PULSE 88; RESP 18; O2SAT 98
[2024-01-03] MEDS: Vancomycin HCl 1,500 MG in 0.9% Normal Saline (500mL Bag) 500 ML 250 MG IV (11:02)
[2024-01-03 11:16] VITALS: BP 136/83; PULSE 88; RESP 19; TEMP 36.6; O2SAT 97
--- NOTE | 2024-01-03 11:49 | MRI_ITS ---
INDICATION: CELLULITIS EXAMINATION: MRI - RIGHT MR Ankle W/O Contrast TECHNIQUE: Multiplanar and multisequence MR images of the RIGHT ankle. IV Contrast Dosage and Agent: None. COMPARISON: Film examination of 01/03/2024 FINDINGS: BONE: There is normal alignment bony elements of the RIGHT ankle. No evidence of marrow edema or occult fracture. No osteochondral lesion. JOINT: Articular cartilage intact. No joint effusion. Normal appearance of the tibiotalar and subtalar articulations. LIGAMENTS: The syndesmotic ligaments, lateral collateral ligaments, and medial collateral ligaments are intact. TENDONS: The peroneal tendons, flexor tendons, and extensor tendons are intact. Achilles tendon intact. MUSCLES: Normal bulk and signal. MISCELLANEOUS: Plantar fascia intact. Normal fat in the sinus tarsi. OTHER SOFT TISSUES: Extensive subcutaneous soft tissue swelling/edema without organized fluid collection or abscess. Deep muscular fascial planes have normal appearance with the exception of mild edema within the plantar compartment of the mid foot. MRI/Lower Ext Joint Only (Routine) IMPRESSION: 1. Extensive subcutaneous soft tissue edema/cellulitis without organized fluid collection or abscess. 2. Normal appearance of bony elements and joint spaces of the ankle without destructive bony processes or marrow edema. No fracture noted. 3. Incidental note of mild edema within the plantar muscular compartment particularly in the region of the flexor digitorum brevis Electronically Signed: Stephen Seaman MD at 20:11 EDT ,
--- NOTE | 2024-01-03 11:49 | MRI_ITS ---
HISTORY: cellulitis right foot -- NO CONTRAST Date: 01/03/2024 4:56 PM Technique: MRI examination obtained with multiplanar multi echo imaging. Location: RIGHT foot Contrast: No contrast administered Comparison: Plain film examination dated 01/03/2024 FINDINGS: BONY ELEMENTS: 1. Postoperative changes of prior amputation of the 1st digit at the level of the head of the proximal phalanx. Additional amputation of the 2nd and 3rd digit at the metatarsophalangeal joints. Small residual bony fragment at the base of the 2nd proximal phalanx is noted. 2. There is moderate marrow edema along the surgical interface of the remaining 1st proximal phalanx. Adjacent soft tissue edema is present. 3. There is a significant marrow edema involving the distal phalanx of the 5th digit. This corresponds to a area of destructive change on plain film examination. Middle phalanx of the 5th digit is intact. 4. Remaining bony elements have normal appearance. JOINT SPACES: 1. Normal appearance of alignment of bony elements and joint spaces. No joint effusion DEEP MUSCULAR COMPARTMENTS: 1. Deep muscular compartments are well-maintained. 2. NEURAL VASCULAR COMPARTMENTS: 1. Normal appearance of the neural vascular compartments 2. SUBCUTANEOUS SOFT TISSUES. 1. Significant soft tissue edema particularly along the dorsum of the foot. There is contour deformity along the dorsal surface of the foot which appears to represent an area of ulceration versus surgical excision. MRI/Lower Ext/No Jt/w/o IMPRESSION: 1. Postop changes including amputation of the 1st 2nd and 3rd digits. There is moderate edema within the surgical interface of the 1st proximal phalanx which is likely postoperative in nature. 2. There is significant edema involving the distal phalanx of the 5th digit with destruction of cortical surface. An area of focal osteomyelitis is a consideration. 3. Remaining bony elements have normal appearance and marrow signal. 4. Significant subcutaneous soft tissue edema/cellulitis along the dorsum of foot. No organized fluid collection or abscess. 5. Soft tissue defect along the dorsal surface of the forefoot, consistent with ulceration versus surgical defect. Electronically Signed: Stephen Seaman MD at 20:26 EDT ,
[2024-01-03 12:09] VITALS: BMI 32.2
[2024-01-03 12:15] VITALS: BP 138/95; PULSE 69; RESP 16; TEMP 36.7; O2SAT 99
--- NOTE | 2024-01-03 12:26 | CASEMGMT ---
Addendum entered by Elizabeth Aly 01/04/24 15:14: Received approved C-9 for [facility]. Faxed to [facility] at this time and Lucy notified. Addendum entered by Elizabeth Aly 01/04/24 15:09: Lucy from [facility] called back and will anticipate a SOC on Wednesday if all paperwork is received. Addendum entered by Elizabeth Aly 01/04/24 15:07: TC to Bianca at the [facility] as pt has a dc in and C-9 has not been received. Bianca states she has not received it. NABILA ODELL into pt room, pt called Keisha at his work and left vm requesting C-9 to be sent to this NABILA ODELL. Pt states he has an appt with on . Appts with the [facility] and already set up. Pt denies any further homegoing needs. TC to Lucy at [facility] to make aware of dc and that pt has an appt on with Dr. Gonsalez. Original Note: NABILA ODELL notified [facility] Lucy that pt is being admitted. She states they have not started with pt yet as they did not receive approval from C-9.
--- NOTE | 2024-01-03 12:58 | WOUNDNOTE ---
wound photo: right foot
--- NOTE | 2024-01-03 12:59 | WOUNDNOTE ---
wound photo: right foot
[2024-01-03] MEDS: Ibuprofen 400 MG Tablet 800 MG PO ×2 (13:00→22:06)
[2024-01-03] MEDS: oxyCODONE 5 MG Tablet PO ×2 (13:00→22:06)
[2024-01-03 13:30] LABS: Reflex Lactate? Y
[2024-01-03] MEDS: DAKIN'S SOL HALF STRENGTH (=0.25%) TOPICAL (14:12)
[2024-01-03 14:17] LABS: Lactic Acid 1.8 mmol/L (0.4-1.9)
--- NOTE | 2024-01-03 14:54 | CON.PCM.ID_ITS ---
Assessment & Plan Assessment/Plan (1) Osteomyelitis of foot, right, acute: PLAN: Had crush injury to R foot. Admitted at end of November, wound cx and surg cx with ecoli, PsA, serratia, MSSA, CoNS, anaerobes. Taken to OR 12/24/[address] Gonsalez to amputation of 1st, 2nd, and 3rd toes. Discharged on cipro/augmentin, plan on 10 more days at discharge. Now with sepsis, worsening of wound. Wound cx pending. Will cover with vanc/zosyn. Will follow, thank you HPI Consult Data Date of Consult: 01/03/24 HPI Narrative Reason for Consultation: R foot infection HPI Narrative: CASPER GONZALEZ, is a 53 M with crush injury to R foot. Admitted at end of November, wound cx and surg cx with ecoli, PsA, serratia, MSSA, CoNS, anaerobes. Taken to OR 12/24/[address] Gonsalez to amputation of 1st, 2nd, and 3rd toes. Discharged on cipro/augmentin, plan on 10 more days at discharge. Now with new onset overnight off fever, chills. No new focal complaints, no sick contacts, foot has been wrapped, reports compliance with abx. No abd pain, no n/v/d, no dysuria, no cough or SOB. Admitted here. Full Ros performed and neg except as noted above. [facility] Medical History Wears glasses History of steroid therapy Non-smoker Left wrist pain Migraines Arthritis Seasonal allergies Home Medications ?Medication ?Instructions ?Recorded ?Last Taken ?Type multivitamin (Daily Multi-Vitamin 1 tab PO DAILY HEALTH MAINENANCE 09/15/23 Unknown History tablet) aspirin 81 mg tablet,delayed 162 mg (2 x 81 mg) PO DAILY HEART 12/28/23 Unknown Rx release HEALTH #30 tabs ibuprofen 800 mg tablet 800 mg PO Q8H PAIN #60 tabs 12/28/23 Unknown Rx oxycodone 5 mg tablet 5 mg PO Q4H PRN PAIN 7 days #42 12/28/23 Unknown Rx tabs acetaminophen 325 mg capsule 650 mg PO Q6H Pain 01/03/24 Unknown History amoxicillin 875 mg-potassium 1 tab PO BIDCM ANTIBIOTIC 01/03/24 Unknown History clavulanate 125 mg tablet ciprofloxacin HCl 500 mg tablet 500 mg PO BID ANTIBIOTIC 01/03/24 Unknown History Allergy/AdvReac Type Severity Reaction Status Date / Time No Known Allergies Allergy Verified 01/03/24 09:00 Family History Father Heart disease Hypertension Diabetes Mother Heart disease Surgical History H/O removal of cyst H/O sinus surgery Social History household members: spouse current occupational status: employed Smoking Status: Never smoker alcohol intake: never substance use type: does not use Physical Exam Const alert, oriented x3 and no apparent distress General Appearance: cooperative HEENT normocephalic and head/scalp atraumatic Eyes PERRL and EOMs intact bilaterally Neck supple and No nodes Resp normal air movement and clear to auscultation bilaterally Cardio regular rate and regular rhythm GI soft to palpation, non-tender and non-distended Extremity General Extremity: Negative for edema Skin Skin Narrative: reviewed photos Neuro CN's II-XII intact bilaterally Lab / Micro Data Attestation: I reviewed the patient's lab results. 01/03/24 09:27 01/03/24 09:27 Labs: Laboratory Results - last 24 hr 01/03/24 09:27: WBC 6.0, RBC 4.85, Hgb 14.5, Hct 43.3, MCV 89.3, MCH 29.9, MCHC 33.5, RDW Std Deviation 39.1, RDW Coeff of Gianni 12.1, Plt Count 278, MPV 9.8, Sodium 140, Potassium 4.2, Chloride 107, Carbon Dioxide 25.0, Anion Gap 8, BUN 14, Creatinine 0.97, Estim Creat Clear Calc 104.15, Est GFR (MDRD) Af Amer 104, Est GFR (MDRD) Non-Af 86, BUN/Creatinine Ratio 14.4, Glucose 107 H, Lactic Acid 2.5 H*, Calcium 9.2 01/03/24 13:44: Lactic Acid 1.8 Imaging Radiology Impression Foot X-Ray 01/03/24 10:10 IMPRESSION: New transcondylar amputation of the proximal phalanx of the great toe. New amputation of the second and third toes through the MTP joints. 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 Electronically Signed: Dony Adam MD at 10:28 EDT ,
[2024-01-03 15:01] LABS: M R Staph aureus DNA By PCR Negative (Negative); Probe Check PASS; Specimen Processing Control PASS; Staph aureus DNA By PCR NEGATIVE (Negative)
--- NOTE | 2024-01-03 15:10 | PCM.RX.CS ---
Consult Antibiotic Management Pharmacy has been consulted to manage selected antibiotic: Vancomycin Type of Intervention Type of Consult: New start Suspected Infection Suspected Infection: Osteomyelitis Prior Doses of Antibiotics Prior Doses of Antibiotics Received/Current Regimen: 01/03/24 @ 1102 Labs Labs: Sodium 140 mmol/L (136-145) 01/03/24 09:27 Potassium 4.2 mmol/L (3.5-5.1) 01/03/24 09:27 Chloride 107 mmol/L (98-107) 01/03/24 09:27 Carbon Dioxide 25.0 mmol/L (21.0-32.0) 01/03/24 09:27 Anion Gap 8 (5-15) 01/03/24 09:27 BUN 14 mg/dL (7-18) 01/03/24 09:27 Creatinine 0.97 mg/dL (0.70-1.30) 01/03/24 09:27 Est GFR (MDRD) Af Amer 104 mL/min (>60) 01/03/24 09:27 Est GFR (MDRD) Non-Af 86 mL/min (>60) 01/03/24 09:27 BUN/Creatinine Ratio 14.4 RATIO (10-20) 01/03/24 09:27 Glucose 107 mg/dL (74-106) H 01/03/24 09:27 Dosing Weight Weight used for dosin kg Estimated Creatinine Clearance Estimated Creatinine Clearance: 104 Goal Trough Goal Trough: 15-20 mcg/mL Pharmacy Plan for Drug Dosing Pharmacy Plan for Drug Dosing: Start Vancomycin 1250mg every 8 hours. Start 01/03/24 @ 1900 Pharmacy Service will continue to monitor and adjust dosing as required. Follow-Up Labs Follow-Up Labs: Trough: Vancomycin Date/Time Labs Ordered Labs to be done on [date and time ordered]: 01/04/24 @ 1030
[2024-01-03] MEDS: Piperacil/Tazobactam 3.375 GM in 0.9% Normal Saline (50mL MB+) 50 ML IV ×2 (16:04→22:06)
[2024-01-03] MEDS: 0.9% Saline Lock 10 ML Syringe IV (16:04)
--- NOTE | 2024-01-03 18:27 | HP.PCM.HOS_ITS ---
HPI - General General Date of Admission: 01/03/24 Date of Service: 01/03/24 Chief Complaint: Chills, right foot redness HPI Narrative CASPER GONZALEZ, is a 53 M who presents to the emergency room at [facility] with complaints of chills and right foot redness, he states the chills started last night, he was concerned that his right foot was infected, patient extensive surgeries on his right foot due to a crush injury approximately a month ago. Workup in the emergency room included a CBC which showed a normal white blood cell count, patient's lactic acid was elevated at 2.5, the remainder of the patient's chemistry panel was unremarkable. Podiatry was contacted and recommended the patient be admitted to the hospital for possible recurrent right foot infection, infectious diseases will see the patient and adjust his antibiotic coverage, patient is on oral antibiotic coverage presently at home. MRI of the right foot and right ankle will be obtained to rule out any abscess or osteomyelitis. [facility] Medical History Wears glasses History of steroid therapy Non-smoker Left wrist pain Migraines Arthritis Seasonal allergies Home Medications ?Medication ?Instructions ?Recorded ?Last Taken ?Type multivitamin (Daily Multi-Vitamin 1 tab PO DAILY HEALTH MAINENANCE 09/15/23 Unknown History tablet) aspirin 81 mg tablet,delayed 162 mg (2 x 81 mg) PO DAILY HEART 12/28/23 Unknown Rx release HEALTH #30 tabs ibuprofen 800 mg tablet 800 mg PO Q8H PAIN #60 tabs 12/28/23 Unknown Rx oxycodone 5 mg tablet 5 mg PO Q4H PRN PAIN 7 days #42 12/28/23 Unknown Rx tabs acetaminophen 325 mg capsule 650 mg PO Q6H Pain 01/03/24 Unknown History amoxicillin 875 mg-potassium 1 tab PO BIDCM ANTIBIOTIC 01/03/24 Unknown History clavulanate 125 mg tablet ciprofloxacin HCl 500 mg tablet 500 mg PO BID ANTIBIOTIC 01/03/24 Unknown History Allergy/AdvReac Type Severity Reaction Status Date / Time No Known Allergies Allergy Verified 01/03/24 09:00 Family History Father Heart disease Hypertension Diabetes Mother Heart disease Surgical History H/O removal of cyst H/O sinus surgery Social History household members: spouse current occupational status: employed Smoking Status: Never smoker alcohol intake: never substance use type: does not use ROS Constitutional Constitutional: Reports chills; Denies anorexia, change in weight, fever(s), night sweats or weakness Eyes Eyes: Denies blurry vision, change in vision, discharge from eye(s) or eye pain Cardiovascular Cardiovascular: Denies chest pain, claudication, dyspnea on exertion, edema or palpitations Respiratory/Chest Respiratory/Chest: Denies cough, hemoptysis, shortness of breath at rest or shortness of breath with exertion Gastrointestinal Gastrointestinal: Denies abdominal pain, constipation, diarrhea, hematemesis, hematochezia, melena, nausea or vomiting Genitourinary Genitourinary: Denies dysuria, hematuria, urinary frequency, urinary hesitancy, urinary incontinence or urinary urgency Musculoskeletal Musculoskeletal: Denies back pain, joint pain, joint stiffness, joint swelling, myalgias or neck pain Neurologic Neurologic: Denies abnormal gait, abnormal speech, dizziness, focal weakness, headache(s), loss of vision, numbness, other visual disturbances, paresthesias, syncope or tingling Psychiatric Psychiatric: Denies anxiety, cognitive impairment, depression, irritability, mood swings or suicidal ideation Endocrine Endocrinology: Denies change in body appearance, cold intolerance, excessive sweating, heat intolerance, polydipsia or polyuria Hematologic/Lymphatic Hematologic/Lymphatic: Denies none, anemia, easy bleeding, easy bruising or lymphadenopathy Allergic/Immunologic Allergic/Immunologic: Denies rhinitis, urticaria, eczemia or asthma Vital Signs Vital Signs Vital Signs: 01/03/24 09:00 01/03/24 11:00 01/03/24 11:16 Temperature 97.2 F L 98 F Temperature Source Temporal Pulse Rate 108 H 88 88 Respiratory Rate 16 18 19 H Respiratory Effort Respiratory Depth Respiratory Pattern Blood Pressure 155/96 H 136/89 H 136/83 H Blood Pressure Mean 115 104 100 Blood Pressure Source Blood Pressure Position Blood Pressure Location Pulse Ox 99 98 97 Oxygen Delivery Method Room Air Room Air 01/03/24 12:09 01/03/24 12:15 Temperature 98.1 F Temperature Source Oral Pulse Rate 69 Respiratory Rate 16 Respiratory Effort Normal Non-Labored Respiratory Depth Normal Respiratory Pattern Normal Blood Pressure 138/95 H Blood Pressure Mean 109 Blood Pressure Source Monitor Blood Pressure Position Semi-Fowlers Blood Pressure Location Right Arm Pulse Ox 99 Oxygen Delivery Method Room Air Room Air Weight Weight: 99.025 kg Body Mass Index (BMI) 32.2 Physical Exam Const alert, oriented x3, no apparent distress and healthy appearing General Appearance: cooperative, well kempt and well developed Orientation / Consciousness: awake, oriented to person, oriented to place and oriented to time HEENT normocephalic and moist oral mucous membranes Eyes PERRL, EOMs intact bilaterally and conjunctivae normal Neck supple, no JVD, thyroid normal and no carotid bruits General: trachea midline Resp normal respiratory effort and clear to auscultation bilaterally Auscultation: Negative for rales, rhonchi or wheezes Cardio regular rate, regular rhythm, no murmurs, no rub and no gallops GI normal to inspection, nondistended, normoactive bowel sounds, soft to palpation, non-tender and non-distended Extremity Extremity Narrative: Edema was noted above the surgical dressing wrapped around the patient's right foot, this edema extended into the midportion of the pretibial area, slight redness was noted but the area was nontender. The amount of the edema was not severe. Skin Skin Narrative: Surgical dressing over the right foot was not removed for examination of the previous toe amputation/foot surgery area Neuro oriented x3, CN's II-XII intact bilaterally, no focal motor deficits and no sensory deficits noted Sensorium / Orientation: awake and alert Speech: speech normal Psych affect normal Results Lab / Micro Data 01/04/24 07:10 01/03/24 09:27 Labs: Laboratory Results - last 24 hr 01/03/24 09:27: WBC 6.0, RBC 4.85, Hgb 14.5, Hct 43.3, MCV 89.3, MCH 29.9, MCHC 33.5, RDW Std Deviation 39.1, RDW Coeff of Gianni 12.1, Plt Count 278, MPV 9.8, Sodium 140, Potassium 4.2, Chloride 107, Carbon Dioxide 25.0, Anion Gap 8, BUN 14, Creatinine 0.97, Estim Creat Clear Calc 104.15, Est GFR (MDRD) Af Amer 104, Est GFR (MDRD) Non-Af 86, BUN/Creatinine Ratio 14.4, Glucose 107 H, Lactic Acid 2.5 H*, Calcium 9.2 01/03/24 12:35: S.aureus Protein A PCR NEGATIVE, MRSA (PCR) Negative 01/03/24 13:44: Lactic Acid 1.8 Imaging Radiology Impression Venous Doppler Study 01/03/24 09:22 Interpretation Summary Deep veins of the right lower extremity are patent and compressible segmentally. There is no evidence of right lower extremity deep vein thrombosis. The right great saphenous vein appears patent and compressible segmentally. Ordering Physician: Jose Lopez Referring Physician: Abhijeet Martinez Performed By: Fredy Flower, [place] Foot X-Ray 01/03/24 10:10 IMPRESSION: New transcondylar amputation of the proximal phalanx of the great toe. New amputation of the second and third toes through the MTP joints. 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 Electronically Signed: Dony Adam MD at 10:28 EDT Reading Location ID and State: [facility] / [place] , Service support , Assessment & Plan Assessment/Plan (1) Open fracture of distal phalanx of right great toe: QUALIFIERS: Encounter type: initial encounter Fracture alignment: displaced Qualified Code(s): S92.421B - Displaced fracture of distal phalanx of right great toe, initial encounter for open fracture PLAN: Plan 1. Cellulitis of the right foot-patient will be admitted to [facility] 3, he will be seen by infectious diseases and podiatry, patient's antibiotic coverage will be managed by infectious diseases, patient will have a MRI of the right foot and right ankle. CBC will be repeated tomorrow. Total clinical time spent by myself addressing the patient's medical issues, reviewing all of his data, collaborating with patient's care team: 55 minutes Charges/Coding Visit Charges Inpatient E&M: 78212 Init Hosp L2
[2024-01-03] MEDS: Acetaminophen 325 MG Tablet 650 MG PO ×2 (18:31→23:20)
[2024-01-03] MEDS: Vancomycin HCl 1,250 MG in 0.9% Normal Saline (250mL Bag) 250 ML 167 MG IV (19:25)
[2024-01-03 21:56] VITALS: BP 146/88; PULSE 68; RESP 18; TEMP 36.7; O2SAT 97
[2024-01-03] MEDS: Heparin Injection (Vial) 5,000 UNIT/ML VIAL 5000 UNIT SC (22:05)
[2024-01-04] MEDS: Vancomycin HCl 1,250 MG in 0.9% Normal Saline (250mL Bag) 250 ML 167 MG IV (03:22)
[2024-01-04 03:23] VITALS: BP 139/72; PULSE 59; RESP 18; TEMP 36.6; O2SAT 96
[2024-01-04] MEDS: oxyCODONE 5 MG Tablet PO ×2 (03:28→10:35)
[2024-01-04] MEDS: Ibuprofen 400 MG Tablet 800 MG PO ×2 (03:29→15:47)
[2024-01-04] MEDS: Piperacil/Tazobactam 3.375 GM in 0.9% Normal Saline (50mL MB+) 50 ML IV (06:02)
[2024-01-04] MEDS: Acetaminophen 325 MG Tablet 650 MG PO ×2 (06:06→16:00)
[2024-01-04 07:26] LABS: Absolute Neutrophil Count 2.3 X10^3/uL (2.0-7.7); Basophil# 0.08 X10^3/uL; Basophil% 1.6 % (0-1); Eosinophils% 7.9 % (0-5); Hematocrit 40.8 % (40-54); Hemoglobin 13.7 g/dL (13.0-16.5); Lymphocyte % 31.6 % (19-41); Mean Corp Hgb Conc 33.6 g/dL (32-36); Mean Corpuscular Hgb 29.8 pg (27.0-32.0); Mean Corpuscular Volume 88.7 fL (80-94); Monocyte% 11.8 % (0-10); NRBC Flagged by Analyzer 0 % (0-5); Neutrophil # 2.34 X10^3/uL (2.7-7.7); Neutrophil % 46.1 % (47-70); Platelet Count 228 K/mm3 (150-450); RBC Distribution Width CV 12.3 % (11.6-14.6); RBC Distribution Width SD 39.3 fl (35.1-43.9); White Blood Count 5.1 K/mm3 (4.4-11.0)
[2024-01-04 09:05] VITALS: BP 132/75; PULSE 74; RESP 16; TEMP 37.1; O2SAT 99
[2024-01-04 09:09] VITALS: PULSE 74; RESP 16; O2SAT 99
[2024-01-04] MEDS: Aspirin E.C. 81 MG Tablet 162 MG PO (09:17)
[2024-01-04] MEDS: Heparin Injection (Vial) 5,000 UNIT/ML VIAL 5000 UNIT SC (09:26)
--- NOTE | 2024-01-04 10:23 | PCM.PN.ID ---
Physical Exam Narrative Feeling better, no fever, no n/v/d. Const alert and no apparent distress General Appearance: cooperative Resp normal air movement and clear to auscultation bilaterally Cardio regular rate and regular rhythm GI soft to palpation, non-tender and non-distended Skin Skin Narrative: foot wrapped ID ID: Route of nutrition/ use of supplements: [] Nutritional Intake: [] IV Site: [] Fitch Catheter: [] Assessment & Plan Assessment/Plan (1) Osteomyelitis of foot, right, acute: PLAN: Had crush injury to R foot. Admitted at end of November, wound cx and surg cx with ecoli, PsA, serratia, MSSA, CoNS, anaerobes. Taken to OR 12/24/[address] Gonsalez to amputation of 1st, 2nd, and 3rd toes. Discharged on cipro/augmentin, plan was 10 more days at discharge. Now with sepsis, worsening of wound. Wound cx pending. Will cont with vanc/zosyn. Will follow
--- NOTE | 2024-01-04 11:12 | CASEMGMT ---
RN CM Readmission Note Previous Admission: 12/23/23-12/28/23 Diagnosis: R foot infection DC Disposition: Home with [facility] and F/U with Dr. Gonsalez Current Admission: Admitted 01/03/24 Current Diagnosis: crush injury Pt dc'd from [facility] on 12/28/23 with follow up at 's office, [facility], po atb and [facility]. HHC had not been started as C-9 had not been approved yet. NABILA ODELL into pt room, pt sitting up in bed in no distress. Pt states he went to 's office on the Wednesday following dc as well as Wednesday. Pt was to have an appt at the [facility] this date in which he cancelled d/t being hospitalized. Dr. Gonsalez has performed all dressing changes. Pt is still interested in [facility] and declines to have a list of other options. He states he was made aware from his work that the [facility] was approved. This RN CM has not received confirmation of this yet. Pt states he has maintained his non wt bearing with crutches. He has been taking his atb as ordered. TC to Lucy at [facility], referral made. They are able to accept pt but need the approved C-9 first. Email to Bianca at [facility] to see if this is available. DC Plan: Home with [facility], follow ID.
[2024-01-04 11:25] LABS: Vancomycin, Trough Level 19.6 ug/mL (5.0-15.0)
[2024-01-04 12:26] LABS: Creatinine, Serum 0.96 mg/dL (0.70-1.30); EST Glomerular Filtration Rate 88 mL/min (>60); Est Glom Filt Rate - Afr Amer 106 mL/min (>60); Estimated Creatinine Clearance 103.25 ml/min
--- NOTE | 2024-01-04 12:38 | PCM.RX.CS ---
Consult Antibiotic Management Pharmacy has been consulted to manage selected antibiotic: Vancomycin Type of Intervention Type of Consult: Follow-up Suspected Infection Suspected Infection: Osteomyelitis Prior Doses of Antibiotics Prior Doses of Antibiotics Received/Current Regimen: current dose is 1250mg IV q8h Labs Labs: Sodium 140 mmol/L (136-145) 01/03/24 09:27 Potassium 4.2 mmol/L (3.5-5.1) 01/03/24 09:27 Chloride 107 mmol/L (98-107) 01/03/24 09:27 Carbon Dioxide 25.0 mmol/L (21.0-32.0) 01/03/24 09:27 Anion Gap 8 (5-15) 01/03/24 09:27 BUN 14 mg/dL (7-18) 01/03/24 09:27 Creatinine 0.96 mg/dL (0.70-1.30) 01/04/24 07:10 Est GFR (MDRD) Af Amer 106 mL/min (>60) 01/04/24 07:10 Est GFR (MDRD) Non-Af 88 mL/min (>60) 01/04/24 07:10 BUN/Creatinine Ratio 14.4 RATIO (10-20) 01/03/24 09:27 Glucose 107 mg/dL (74-106) H 01/03/24 09:27 Vancomycin Trough 19.6 ug/mL (5.0-15.0) H 01/04/24 10:10 Microbiology Microbiology: Microbiology 01/03/24 12:35 Wound - Right Foot Gram Stain - Final 01/03/24 12:35 Wound - Right Foot Wound Culture - Preliminary No growth-Final to follow Dosing Weight Weight used for dosin kg Estimated Creatinine Clearance Estimated Creatinine Clearance: 103ml/min Goal Trough Goal Trough: 15-20 mcg/mL Pharmacy Plan for Drug Dosing Pharmacy Plan for Drug Dosing: The vanc trough drawn at 10:10 today (approx 7 hours after the previous dose) was 19.6. This is within goal range but at the upper end of the range already after only a 1500mg dose and 2 of the 1250mg doses were given. With the expectation that the current dose will result in the next trough being over 20, will slightly decrease next dose to 1000mg q8h. Repeat a trough before the 4th dose. Pharmacy Service will continue to monitor and adjust dosing as required. Follow-Up Labs Follow-Up Labs: Trough: Vancomycin Date/Time Labs Ordered Labs to be done on [date and time ordered]: 01/05/24 12:30
--- NOTE | 2024-01-04 14:34 | DCINST_ITS ---
Discharge Instructions Diet Discharge Diet: No restrictions Activity Weight Bearing Status: No weight bearing (RIGHT FOOT) Follow Up Care Test Results: Test results from this visit will be discussed in further detail at your follow- up appointment, if applicable. Discharge Plan Admission Admit Date/Time: 01/03/24 11:26 Attending Provider: Sung Mitchell Primary Care Provider: Abhijeet Martinez Consulting Providers: Norris Raphael; Hiram Gonsalez Instructions Additional Instructions / Restrictions: Complete 10 days of oral antibiotics starting today Discharge Orders/Prescriptions Prescriptions: New ciprofloxacin HCl 500 mg tablet 500 mg PO BID Qty: 16 0RF amoxicillin-pot clavulanate 875-125 mg tablet 1 tab PO BID Qty: 16 0RF Continued multivitamin [Daily Multi-Vitamin] Tablet 1 tab PO DAILY oxycodone 5 mg tablet 5 mg PO Q4H PRN (Reason: PAIN ) 7 Days Qty: 42 0RF ibuprofen 800 mg tablet 800 mg PO Q8H Qty: 60 0RF aspirin 81 mg tablet,delayed release (DR/EC) 162 mg PO DAILY Qty: 30 0RF ciprofloxacin HCl 500 mg Tablet 500 mg PO BID Patient Comments: START DATE: 12/28/2023 END DATE: 01/06/2024 Rx Instructions: TAKE ONE TABLET BY MOUTH TWICE DAILY FOR 10 DAYS. amoxicillin-pot clavulanate 875-125 mg Tablet 1 tab PO BIDCM Patient Comments: START DATE: 12/28/2023 END DATE: 01/06/2024 Rx Instructions: TAKE ONE TABLE BY MOUTH TWICE DAILY WITH MEALS FOR 10 DAYS. acetaminophen 325 mg capsule 650 mg PO Q6H Referrals / Follow Up: Abhijeet Martinez MD [Primary Care Provider] - Hiram Gonsalez DPM [Med Staff - Active Staff] - See Referral Note (At the wound care center next January 10) Norris Raphael MD [Med Staff - Active Staff] - 01/19/24 2:45 pm Disposition Disposition (needs filled in before D/C Order can be placed): Home, Self Care
[2024-01-04 14:45] VITALS: BP 126/78; PULSE 78; RESP 16; TEMP 37.2; O2SAT 96
--- NOTE | 2024-01-04 14:45 | PCM.DC.SUM ---
Providers Date of Admission: 01/03/24 Date of Discharge: 01/04/24 Primary Care Physician: Abhijeet Martinez MD Consultations 01/03/24 12:09 Consult: Infectious Disease Routine Consulting Provider: Norris Raphael Reason for Consult: ? cellulitis right foot EMERGENT Consult: No Notified: Yes Date Notified: 01/03/24 Time Notified: 11:32 Method of Notification: Verbal Consult: Podiatry Routine Consulting Provider: Hiram Gonsalez Reason for Consult: foot cellulitis EMERGENT Consult: No Notified: Yes Date Notified: 01/03/24 Time Notified: 11:31 Method of Notification: Verbal 01/03/24 12:56 Consult: Onc/Wound/spa concierge Routine Comment: Reason for Consult:: right foot Reason For Visit: CRUSH INJURY Diagnosis Discharge Diagnosis (1) Osteomyelitis of foot, right, acute: Status: Acute Code(s): M86.171 - Other acute osteomyelitis, right ankle and foot Plan 1. Cellulitis of the right foot-patient will be admitted to [place] [address], he will be seen by infectious diseases and podiatry, patient's antibiotic coverage will be managed by infectious diseases, patient will have a MRI of the right foot and right ankle. CBC will be repeated tomorrow. Total clinical time spent by myself addressing the patient's medical issues, reviewing all of his data, collaborating with patient's care team: 55 minutes Medications at Discharge Home Medications multivitamin (Daily Multi-Vitamin tablet) 1 tab PO DAILY HEALTH [facility] 09/15/23 aspirin 81 mg tablet,delayed release 162 mg (2 x 81 mg) PO DAILY HEART HEALTH #30 tabs 12/28/23 ibuprofen 800 mg tablet 800 mg PO Q8H PAIN #60 tabs 12/28/23 oxycodone 5 mg tablet 5 mg PO Q4H PRN PAIN 7 days #42 tabs 12/28/23 acetaminophen 325 mg capsule 650 mg PO Q6H Pain 01/03/24 amoxicillin 875 mg-potassium clavulanate 125 mg tablet 1 tab PO BIDCM ANTIBIOTIC 01/03/24 ciprofloxacin HCl 500 mg tablet 500 mg PO BID ANTIBIOTIC 01/03/24 amoxicillin 875 mg-potassium clavulanate 125 mg tablet 1 tab PO BID #16 tabs 01/04/24 ciprofloxacin HCl 500 mg tablet 500 mg PO BID #16 tabs 01/04/24 Hospital Course Operations None Procedures None Summary of Care Provided Minutes Spent on Discharge: 31 Hospital Course: This 53-year-old white male was seen in the emergency room at [facility] with complaints of chills and possible increasing cellulitis in his right foot. Patient had undergone 2 surgeries in the last several weeks due to a crush injury on the right foot, the last surgery included an amputation of the second and third rays of the right foot along with a partial amputation of the right great toe. Workup in the emergency room showed the patient's white blood cell count to be normal, examination of the patient's right foot revealed generalized edema, there was open areas that were present on the dorsum of the right foot-these were present during the patient's last hospitalization at the time of discharge. No purulent material was noted from the area. Patient was admitted to [place] [address] and placed on IV antibiotics, he was seen in consultation by infectious diseases and the wound care nurse. 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 Patient was examined by podiatry on 01/04/2024, podiatry felt that the wound was healing adequately and that the patient could be discharged home, I discussed this with infectious diseases and infectious diseases recommended another 10-day course of antibiotics as an outpatient. On 01/04/2024, patient was seen and examined: On examination he appeared in good health and spirits. Vital signs as documented. Skin warm and dry and without overt rashes. Neck without JVD, neck was supple, trachea midline, thyroid was normal. Lungs clear bilaterally, normal air movement was noted. Heart exam notable for regular rhythm, normal sounds and absence of murmurs, rubs or gallops. Abdomen unremarkable and without evidence of organomegaly, masses, or abdominal aortic enlargement. Bowel sounds are present, abdomen is not distended. Extremities patient's right foot was not examined due to surgical dressing over the area. Neuro: Cranial nerves II through XII are grossly intact, no focal motor deficits were noted, sensation to light touch and pinprick intact, motor exam 5/5 throughout. Psych: Patient is alert and oriented x3, he does not appear anxious or depressed, he does not appear agitated. Patient appears stable for discharge home on 01/04/2024 in stable condition Weight / BMI Weight Weight: 99.025 kg Body Mass Index (BMI) 32.2 ABG / Lab / Microbiology Data 01/04/24 07:10 01/04/24 07:10 Laboratory: Laboratory Results - last 24 hr 01/03/24 12:35: S.aureus Protein A PCR NEGATIVE, MRSA (PCR) Negative 01/04/24 07:10: WBC 5.1, RBC 4.60, Hgb 13.7, Hct 40.8, MCV 88.7, MCH 29.8, MCHC 33.6, RDW Std Deviation 39.3, RDW Coeff of Gianni 12.3, Plt Count 228, MPV 10.0, Immature Gran % (Auto) 1.000 H, Neut % (Auto) 46.1 L, Lymph % (Auto) 31.6, [place] % (Auto) 11.8 H, Eos % (Auto) 7.9 H, Baso % (Auto) 1.6 H, Absolute Neuts (auto) 2.3, Absolute Lymphs (auto) 1.60, Nucleated RBC % 0, Creatinine 0.96, Estim Creat Clear Calc 103.25, Est GFR (MDRD) Af Amer 106, Est GFR (MDRD) Non-Af 88 01/04/24 10:10: Vancomycin Trough 19.6 H Microbiology: Microbiology 01/03/24 12:35 Wound - Right Foot Gram Stain - Final 01/03/24 12:35 Wound - Right Foot Wound Culture - Preliminary No growth-Final to follow Radiography Diagnostic Testing: Radiology Impression Venous Doppler Study 01/03/24 09:22 Interpretation Summary Deep veins of the right lower extremity are patent and compressible segmentally. There is no evidence of right lower extremity deep vein thrombosis. The right great saphenous vein appears patent and compressible segmentally. Ordering Physician: Jose Lopez Referring Physician: Abhijeet Martinez Performed By: Fredy Flower, T Lower Extremity MRI 01/03/24 11:49 IMPRESSION: 1. Extensive subcutaneous soft tissue edema/cellulitis without organized fluid collection or abscess. 2. Normal appearance of bony elements and joint spaces of the ankle without destructive bony processes or marrow edema. No fracture noted. 3. Incidental note of mild edema within the plantar muscular compartment particularly in the region of the flexor digitorum brevis Electronically Signed: Stephen Seaman MD at 20:11 EDT , Lower Extremity MRI 01/03/24 11:49 IMPRESSION: 1. Postop changes including amputation of the 1st 2nd and 3rd digits. There is moderate edema within the surgical interface of the 1st proximal phalanx which is likely postoperative in nature. 2. There is significant edema involving the distal phalanx of the 5th digit with destruction of cortical surface. An area of focal osteomyelitis is a consideration. 3. Remaining bony elements have normal appearance and marrow signal. 4. Significant subcutaneous soft tissue edema/cellulitis along the dorsum of foot. No organized fluid collection or abscess. 5. Soft tissue defect along the dorsal surface of the forefoot, consistent with ulceration versus surgical defect. Electronically Signed: Stephen Seaman MD at 20:26 EDT , D/C Instructions Discharge Diet: No restrictions Weight Bearing Status: No weight bearing (RIGHT FOOT) Meaningful Use Info Meaningful Use Meaningful Use Diagnoses (Choose all that apply): None applicable Ischemic Stroke Statin Dosing Therapy Reference: STATIN DOSE THERAPY REFERENCE: * Patients > 75 years receive moderate or high dose statin therapy. * Patients 75 years or YOUNGER should receive HIGH intensity statin dose unless contraindicated. You will be required to document reason for non-treatment if statin daily dose does not meet guidelines. HIGH DOSE STATIN THERAPY DAILY Atorvastatin > than or = to 40 mg Rosuvastatin > than or = to 20 mg Amlodipine + Atorvastatin > than or = to 2.5/40 mg Ezetimibe + Simvastatin 10/80 mg Simvastatin 80mg Discharge Plan Admission Admit Date/Time: 01/03/24 11:26 Attending Provider: Sung Mitchell Primary Care Provider: Abhijeet Martinez Consulting Providers: Norris Raphael; Hiram Gonsalez Instructions Additional Instructions / Restrictions: Complete 10 days of oral antibiotics starting today Discharge Orders/Prescriptions Prescriptions: New ciprofloxacin HCl 500 mg tablet 500 mg PO BID Qty: 16 0RF amoxicillin-pot clavulanate 875-125 mg tablet 1 tab PO BID Qty: 16 0RF Continued multivitamin [Daily Multi-Vitamin] Tablet 1 tab PO DAILY oxycodone 5 mg tablet 5 mg PO Q4H PRN (Reason: PAIN ) 7 Days Qty: 42 0RF ibuprofen 800 mg tablet 800 mg PO Q8H Qty: 60 0RF aspirin 81 mg tablet,delayed release (DR/EC) 162 mg PO DAILY Qty: 30 0RF ciprofloxacin HCl 500 mg Tablet 500 mg PO BID Patient Comments: START DATE: 12/28/2023 END DATE: 01/06/2024 Rx Instructions: TAKE ONE TABLET BY MOUTH TWICE DAILY FOR 10 DAYS. amoxicillin-pot clavulanate 875-125 mg Tablet 1 tab PO BIDCM Patient Comments: START DATE: 12/28/2023 END DATE: 01/06/2024 Rx Instructions: TAKE ONE TABLE BY MOUTH TWICE DAILY WITH MEALS FOR 10 DAYS. acetaminophen 325 mg capsule 650 mg PO Q6H Referrals / Follow Up: Abhijeet Martinez MD [Primary Care Provider] - Hiram Gonsalez DPM [Med Staff - Active Staff] - See Referral Note (At the wound care center next January 10) Norris Raphael MD [Med Staff - Active Staff] - 01/19/24 2:45 pm Disposition Disposition (needs filled in before D/C Order can be placed): Home, Self Care Charges/Coding Visit Charges Inpatient E&M: 79894 Disch Hosp >30min
[2024-01-04] MEDS: DAKIN'S SOL HALF STRENGTH (=0.25%) TOPICAL (15:48)
--- NOTE | 2024-01-04 15:57 | NURSING ---
PT refusing all ATB therapy. States he just wants to leave and he his being d/c'd with ATB.
--- NOTE | 2024-01-04 16:32 | CON.PCM_ITS ---
Assessment & Plan Assessment/Plan (1) Osteomyelitis of foot, right, acute: PLAN: Exam performed Vital signs stable Labs stable - lactic acid normal MRI results reviewed - consistent with right leg swelling, OM of right 5th toe read - this does not correlate clinically and is likely related to initial fracture to 5th toe at time of injury will plan for aggressive compression contiuation of PO abx per infectious disease non-weightbearing RLE follow up in wound care center, plan for HHC with 2-3 x week dressing changes - dakin's DSD, cara bandage (2) Closed displaced fracture of lesser toe of right foot: QUALIFIERS: Encounter type: initial encounter Phalanx: proximal Qualified Code(s): S92.511A - Displaced fracture of proximal phalanx of right lesser toe(s), initial encounter for closed fracture (3) Non-pressure chronic ulcer of other part of right foot with necrosis of bone: HPI Consult Data Date of Consult: 01/04/24 HPI Narrative HPI Narrative: CASPER GONZALEZ, is a 53 M who presents witth left foot ulcerations x2 s/p rightpartial hallux amputation, complete amputation of right 2nd/3rd toes. Chills resolved today. Reese any other constitutional symptoms. pain controlled. [facility] Medical History Wears glasses History of steroid therapy Non-smoker Left wrist pain Migraines Arthritis Seasonal allergies Home Medications ?Medication ?Instructions ?Recorded ?Last Taken ?Type multivitamin (Daily Multi-Vitamin 1 tab PO DAILY HEALTH [facility] 09/15/23 Unknown History tablet) aspirin 81 mg tablet,delayed 162 mg (2 x 81 mg) PO DAILY HEART 12/28/23 Unknown Rx release HEALTH #30 tabs ibuprofen 800 mg tablet 800 mg PO Q8H PAIN #60 tabs 12/28/23 Unknown Rx oxycodone 5 mg tablet 5 mg PO Q4H PRN PAIN 7 days #42 12/28/23 Unknown Rx tabs acetaminophen 325 mg capsule 650 mg PO Q6H Pain 01/03/24 Unknown History amoxicillin 875 mg-potassium 1 tab PO BIDCM ANTIBIOTIC 01/03/24 Unknown History clavulanate 125 mg tablet ciprofloxacin HCl 500 mg tablet 500 mg PO BID ANTIBIOTIC 01/03/24 Unknown History amoxicillin 875 mg-potassium 1 tab PO BID #16 tabs 01/04/24 Unknown Rx clavulanate 125 mg tablet ciprofloxacin HCl 500 mg tablet 500 mg PO BID #16 tabs 01/04/24 Unknown Rx Allergy/AdvReac Type Severity Reaction Status Date / Time No Known Allergies Allergy Verified 01/03/24 09:00 Family History Father Heart disease Hypertension Diabetes Mother Heart disease Surgical History H/O removal of cyst H/O sinus surgery Social History household members: spouse current occupational status: employed Smoking Status: Never smoker alcohol intake: never substance use type: does not use Physical Exam Narrative NV status unchanged stable right foot wounds x2, no acute signs of infection right lower extremity edematous Lab / Micro Data 01/04/24 07:10 01/04/24 07:10 Labs: Laboratory Results - last 24 hr 01/04/24 07:10: WBC 5.1, RBC 4.60, Hgb 13.7, Hct 40.8, MCV 88.7, MCH 29.8, MCHC 33.6, RDW Std Deviation 39.3, RDW Coeff of Gianni 12.3, Plt Count 228, MPV 10.0, I mmature Gran % (Auto) 1.000 H, Neut % (Auto) 46.1 L, Lymph % (Auto) 31.6, [place] % (Auto) 11.8 H, Eos % (Auto) 7.9 H, Baso % (Auto) 1.6 H, Absolute Neuts (auto) 2.3, Absolute Lymphs (auto) 1.60, Nucleated RBC % 0, Creatinine 0.96, Estim Creat Clear Calc 103.25, Est GFR (MDRD) Af Amer 106, Est GFR (MDRD) Non-Af 88 01/04/24 10:10: Vancomycin Trough 19.6 H Micro: Microbiology 01/03/24 12:35 Wound - Right Foot Gram Stain - Final 01/03/24 12:35 Wound - Right Foot Wound Culture - Preliminary No growth-Final to follow Imaging Radiology Impression Venous Doppler Study 01/03/24 09:22 Interpretation Summary Deep veins of the right lower extremity are patent and compressible segmentally. There is no evidence of right lower extremity deep vein thrombosis. The right great saphenous vein appears patent and compressible segmentally. Ordering Physician: Jose Lopez Referring Physician: Abhijeet Martinez Performed By: Fredy Flower, [place] Lower Extremity MRI 01/03/24 11:49 IMPRESSION: 1. Extensive subcutaneous soft tissue edema/cellulitis without organized fluid collection or abscess. 2. Normal appearance of bony elements and joint spaces of the ankle without destructive bony processes or marrow edema. No fracture noted. 3. Incidental note of mild edema within the plantar muscular compartment particularly in the region of the flexor digitorum brevis Electronically Signed: Stephen Seaman MD at 20:11 EDT , Lower Extremity MRI 01/03/24 11:49 IMPRESSION: 1. Postop changes including amputation of the 1st 2nd and 3rd digits. There is moderate edema within the surgical interface of the 1st proximal phalanx which is likely postoperative in nature. 2. There is significant edema involving the distal phalanx of the 5th digit with destruction of cortical surface. An area of focal osteomyelitis is a consideration. 3. Remaining bony elements have normal appearance and marrow signal. 4. Significant subcutaneous soft tissue edema/cellulitis along the dorsum of foot. No organized fluid collection or abscess. 5. Soft tissue defect along the dorsal surface of the forefoot, consistent with ulceration versus surgical defect. Electronically Signed: Stephen Seaman MD at 20:26 EDT ,
== END 2024-01-04 16:36 | disposition home health service (06) | DRG 603 ==
LOC: ED 09:55 → MS3 12:27
PROVIDERS: Internal Medicine Infectious Disease; Podiatrist; Admitting Provider Internal Medicine; Emergency Provider Emergency Medicine; PCP Family Medicine; Visit Provider Internal Medicine
DX: L03.115 Cellulitis of right lower limb (principal); M86.171 Other acute osteomyelitis, right ankle and foot; L98.494 Non-pressure chronic ulcer of skin of other sites with necrosis of bone; Z89.421 Acquired absence of other right toe(s); S92.511A Displaced fracture of proximal phalanx of right lesser toe(s), initial encounter for closed fracture; S92.421B Displaced fracture of distal phalanx of right great toe, initial encounter for open fracture; B95.61 Methicillin susceptible Staphylococcus aureus infection as the cause of diseases classified elsewhere; S97.81XD Crushing injury of right foot, subsequent encounter; Z79.82 Long term (current) use of aspirin; X58.XXXD Exposure to other specified factors, subsequent encounter; B96.20 Unspecified Escherichia coli [E. coli] as the cause of diseases classified elsewhere; B96.5 Pseudomonas (aeruginosa) (mallei) (pseudomallei) as the cause of diseases classified elsewhere
CPT/HCPCS: 36415; 73620; 73718; 73721; 80048; 80202; 82565; 83605; 85025; 85027; 87040; 87070; 87205; 87640; 93971; 97802; 99283; J7040; J7050; A4216; J0744

== ENCOUNTER → 2024-08-30 | Outpatient (CLI) | payer OTHER, SELFPAY ==
--- NOTE | 2024-08-30 15:49 | RAD_ITS ---
PROCEDURE: CHEST PA AND LATERAL 08/30/2024 REASON FOR EXAM: COUGH TECHNIQUE: Frontal and lateral views of the chest. COMPARISON: None. FINDINGS: The cardiac silhouette is within normal limits. No focal infiltrate or consolidation is seen within the lungs. There is no pneumothorax. There are no acute osseous abnormalities present. RAD/Chest PA and Lateral IMPRESSION: No focal infiltrate or consolidation is seen within the lungs. Reading Location: [facility]
== END | disposition home or self-care (01) ==
LOC: MTRAD 15:48
PROVIDERS: PCP Family Medicine; Referring Provider Family Medicine; Visit Provider Family Medicine
DX: R05.8 Other specified cough (principal)
CPT/HCPCS: 71046